=== PATIENT | female | born 1950 | race Caucasian/White ===

== ENCOUNTER 2020-10-18 12:12 | Outpatient (REF) | payer MEDICARE, SELFPAY ==
--- NOTE | ~2020-10-18 | MM_ITS ---
EXAMINATION: MM SCREENING DIGITAL BREAST TOMOSYNTHESIS, BILATERAL CLINICAL INFORMATION: Screening. Asymptomatic. The lifetime risk of breast cancer based on the Tyrer-Cuzick Model is 3%. COMPARISON: Mammography: 10/13/2019, 02/18/2018, 01/26/2017 TECHNIQUE: Digital breast tomosynthesis is performed in both the craniocaudal and mediolateral oblique views along with computer-aided detection (CAD). Synthesized 2D images are generated from the tomosynthesis. Additional left CC view is provided. FINDINGS: The breasts are almost entirely fatty (ACR BI-RADS breast composition Category a). There are no significant masses, abnormal calcifications, or other abnormalities. Background stromal densities are stable. There are scattered bilateral round, predominantly dermal calcifications again seen. No significant changes from prior exams. MM/MM tomosynthesis screening BI IMPRESSION: No mammographic evidence of malignancy. ASSESSMENT: BI-RADS 1: Negative RECOMMENDATION: Routine annual mammography screening. This patient's information was entered into a reminder system with a target due date for their next mammogram.
== END 2020-10-18 12:13 | disposition home or self-care (01) ==
LOC: HO.MAMMO 12:12
PROVIDERS: PCP Internal Medicine; Visit Provider Internal Medicine
DX: Z12.31 Encounter for screening mammogram for malignant neoplasm of breast (principal)
CPT/HCPCS: 77063; 77067

== ENCOUNTER 2021-10-09 07:19 | Outpatient (REF) | payer MEDICARE, SELFPAY ==
[2021-10-09 07:41] LABS: MANUAL DIFF FLAG NO
[2021-10-09 08:05] LABS: Basophils Percent Auto 0.4 % (0-2); Eosinophils Absolute Auto 0.4 X10*3/uL (0.0-0.4); Hematocrit 44.8 % (37.0-47.0); Imm Gran Abs Auto 0.02 X10*3/uL (0.00-0.03); Imm Gran Pct Auto 0.2 % (0.0-0.4); Lymphocytes Absolute Auto 1.6 X10*3/uL (1.2-4.9); Lymphocytes Percent Auto 19.3 % (20-40); Mean Corpuscular HGB Conc 31.3 g/dl (31.0-35.0); Mean Corpuscular Hemoglobin 29.6 pg (27.0-33.0); Mean Corpuscular Volume 94.7 fL (80.0-98.0); Mean Platelet Volume 10.6 fL (9.4-12.3); Monocytes Absolute Auto 0.7 X10*3/uL (0.1-1.2); Monocytes Percent Auto 7.9 % (2-11); Neutrophils Absolute Auto 5.5 x10*3/uL (2.0-8.3); Neutrophils Percent Auto 67.2 % (45-73); Platelet Count 235 X10*3/uL (160-400); Red Blood Count 4.73 X10*6/uL (4.20-5.50); Red Cell Distribution Width 14.4 % (11.0-16.0); White Blood Count 8.2 X10*3/uL (4.8-10.8)
[2021-10-09 08:34] LABS: Alanine Aminotransferase 25 U/L (0-31); Alkaline Phosphatase 60 U/L (39-117); Anion Gap 10 (12-20); Aspartate Amino Transferase 21 U/L (5-31); Bilirubin Total 0.5 mg/dL (0.0-1.0); Blood Urea Nitrogen 19 mg/dL (9-16); Calcium 9.7 mg/dL (8.4-10.2); Carbon Dioxide 33 mmol/L (22-29); Chloride 106 mmol/L (96-108); Cholesterol 183 mg/dL; Estimated Glomerular Filt Rate > 60; Glucose Random 96 mg/dL (60-115); HDL Cholesterol 45 mg/dL; LDL Cholesterol Calculated 119 mg/dl; Sodium 145 mmol/L (135-145); Total Protein 6.7 g/dL (6.5-8.0); Triglycerides 96 mg/dL
[2021-10-09 08:58] LABS: Free T4 (Free Thyroxine) 0.89 ng/dL (0.71-1.85); Thyroid Stimulating Hormone 3.84 uIU/mL (0.32-4.0); Vitamin D 25-OH Total 36.9 ng/mL (>30)
[2021-10-09 08:59] LABS: Folate 18.1 ng/mL (> or = 4.0); Vitamin B12 487 pg/mL (200-900)
== END 2021-10-09 07:20 | disposition home or self-care (01) ==
LOC: HO.LAB 07:19
PROVIDERS: PCP Internal Medicine; Visit Provider Internal Medicine
DX: E78.00 Pure hypercholesterolemia, unspecified (principal)
CPT/HCPCS: 36415; 80053; 80061; 82306; 82607; 82746; 84439; 84443; 85025

== ENCOUNTER 2021-11-04 12:11 | Outpatient (REF) | payer MEDICARE, SELFPAY ==
--- NOTE | ~2021-11-04 | MM_ITS ---
EXAMINATION: MM SCREENING DIGITAL BREAST TOMOSYNTHESIS, BILATERAL CLINICAL INFORMATION: Screening. Asymptomatic. The lifetime risk of breast cancer based on the Tyrer-Cuzick Model is 4%. COMPARISON: Mammography: 10/18/2020, 10/13/2019, 02/18/2018 TECHNIQUE: Digital breast tomosynthesis is performed in both the craniocaudal and mediolateral oblique views along with computer-aided detection (CAD). Synthesized 2D images are generated from the tomosynthesis. FINDINGS: The breasts are almost entirely fatty (ACR BI-RADS breast composition Category a). Background stromal and fibroglandular densities are stable. No developing density. Scattered benign bilateral round and predominantly dermal calcifications are again noted. There is a dermal lesion overlying the upper left breast on MLO view. There are no significant masses, abnormal calcifications, or other abnormalities. No significant changes. MM/MM tomosynthesis screening BI IMPRESSION: No mammographic evidence of malignancy. ASSESSMENT: BI-RADS 2: Benign RECOMMENDATION: Routine annual mammography screening. This patient's information was entered into a reminder system with a target due date for their next mammogram.
== END 2021-11-04 12:12 | disposition home or self-care (01) ==
LOC: HO.MAMMO 12:11
PROVIDERS: Visit Provider Internal Medicine
DX: Z12.31 Encounter for screening mammogram for malignant neoplasm of breast (principal)
CPT/HCPCS: 77063; 77067

== ENCOUNTER 2022-07-17 10:26 | Outpatient (REF) | payer MEDICARE, SELFPAY ==
--- NOTE | ~2022-07-17 | FL_ITS ---
EXAMINATION: XR GI SERIES CLINICAL INFORMATION: Dysphagia. COMPARISON: None TECHNIQUE: Routine upper GI air contrast study was performed in upright and lying position. FINDINGS: Following oral administration of thick barium and effervescent granules there is normal probation of bolus from the oral cavity through the pharynx, esophagus into stomach without any evidence of obstruction, narrowing or stricture. On placing supine and prone there is a small to moderate-sized hiatal hernia with moderate gastroesophageal reflux. There is flocculation of barium in the dependent portion of stomach suggestive of increased acidity. The mucosal pattern of the duodenum and the stomach is normal. Incidental finding of a small diverticulum is seen in the second segment of the duodenum. FLUOROSCOPY TIME: 2.0 minutes DOSE AREA PRODUCT: 23.918 uGy-m2 (microgray-meter squared) FL/FL upper GI series IMPRESSION: Small to moderate-sized hiatal hernia with moderate gastroesophageal reflux. Small diverticulum in second segment of duodenum. Suspect gastric hyperacidity.
== END 2022-07-17 10:27 | disposition home or self-care (01) ==
LOC: HO.XRAY 10:26
PROVIDERS: PCP Internal Medicine; Visit Provider Internal Medicine
DX: R13.10 Dysphagia, unspecified (principal); K21.9 Gastro-esophageal reflux disease without esophagitis
CPT/HCPCS: 74240

== ENCOUNTER 2022-08-20 06:29 | Outpatient (REF) | payer MEDICARE, SELFPAY ==
[2022-08-20 14:22] LABS: MANUAL DIFF FLAG NO
[2022-08-20 14:30] LABS: Basophils Absolute Auto 0.1 X10*3/uL (0.0-0.2); Basophils Percent Auto 0.7 % (0-2); Eosinophils Absolute Auto 0.4 X10*3/uL (0.0-0.4); Eosinophils Percent Auto 5.6 % (0-4); Hematocrit 44.2 % (37.0-47.0); Hemoglobin 13.9 g/dl (12.0-16.0); Imm Gran Abs Auto 0.03 X10*3/uL (0.00-0.03); Imm Gran Pct Auto 0.4 % (0.0-0.4); Lymphocytes Absolute Auto 1.7 X10*3/uL (1.2-4.9); Lymphocytes Percent Auto 22.6 % (20-40); Mean Corpuscular HGB Conc 31.4 g/dl (31.0-35.0); Mean Corpuscular Volume 95.5 fL (80.0-98.0); Mean Platelet Volume 11.4 fL (9.4-12.3); Monocytes Absolute Auto 0.5 X10*3/uL (0.1-1.2); Monocytes Percent Auto 6.7 % (2-11); Neutrophils Absolute Auto 4.7 x10*3/uL (2.0-8.3); Platelet Count 233 X10*3/uL (160-400); Red Blood Count 4.63 X10*6/uL (4.20-5.50); Red Cell Distribution Width 14.6 % (11.0-16.0); White Blood Count 7.3 X10*3/uL (4.8-10.8)
[2022-08-20 14:36] LABS: D Dimer High Sensitivity 161 NG/ML
[2022-08-20 14:40] LABS: Estimated Average Glucose 111 mg/dL; Hemoglobin A1c % 5.5 %
[2022-08-20 15:14] LABS: Folate 13.6 ng/mL (> or = 4.0); Vitamin B12 426 pg/mL (200-900)
[2022-08-20 17:25] LABS: Alanine Aminotransferase 26 U/L (0-31); Albumin Level 4.1 g/dL (3.5-5.0); Alkaline Phosphatase 64 U/L (39-117); Anion Gap 12 (12-20); Aspartate Amino Transferase 20 U/L (5-31); Bilirubin Total 0.5 mg/dL (0.0-1.0); Blood Urea Nitrogen 18 mg/dL (9-16); Calcium 9.5 mg/dL (8.4-10.2); Carbon Dioxide 32 mmol/L (22-29); Chloride 104 mmol/L (96-108); Cholesterol 194 mg/dL; Estimated Glomerular Filt Rate > 60; Free T4 (Free Thyroxine) 0.92 ng/dL (0.71-1.85); Glucose Random 92 mg/dL (60-115); HDL Cholesterol 54 mg/dL; LDL Cholesterol Calculated 121 mg/dl; Potassium 3.7 mmol/L (3.3-5.1); Sodium 144 mmol/L (135-145); Thyroid Stimulating Hormone 5.55 uIU/mL (0.32-4.0); Total Protein 6.6 g/dL (6.5-8.0); Triglycerides 97 mg/dL; Vitamin D 25-OH Total 36.4 ng/mL (>30)
== END 2022-08-20 06:30 | disposition home or self-care (01) ==
LOC: HO.HMGCLDS 06:29
PROVIDERS: PCP Internal Medicine; Visit Provider Internal Medicine
DX: I26.99 Other pulmonary embolism without acute cor pulmonale (principal); K21.9 Gastro-esophageal reflux disease without esophagitis; I10 Essential (primary) hypertension; E66.9 Obesity, unspecified; E78.00 Pure hypercholesterolemia, unspecified
CPT/HCPCS: 36415; 80053; 80061; 82306; 82607; 82746; 83036; 84439; 84443; 85025; 85379

== ENCOUNTER 2022-10-23 14:53 | Outpatient (REF) | payer MEDICARE, SELFPAY ==
--- NOTE | 2022-10-23 16:06 | PFT_ITS ---
INDICATION: Shortness of breath. SPIROMETRY: FEV1 to FVC of 81% with an FEV1 of 2.1 L, which is 100% predicted and an FVC of 2.6 L, which is 92% predicted. No significant response to bronchodilators noted. Maximum voluntary ventilation is 104% predicted. LUNG VOLUMES: Total lung capacity 90% predicted. DIFFUSION CAPACITY: DLCO of 81% predicted. COMPARISONS: None. INTERPRETATION: No obstructive nor restrictive ventilatory defect identified. No significant response to bronchodilators noted. Normal maximum voluntary ventilation. Lung volumes are within normal limits. The patient does have low normal diffusion capacity. No clinical explanation for the patient's dyspnea. Clinical correlation warranted. MD ASHLEY Lopez/MODIsaac / [id number]
== END 2022-10-23 14:54 | disposition home or self-care (01) ==
LOC: HO.RESP 14:53
PROVIDERS: PCP Internal Medicine; Visit Provider Internal Medicine
DX: R06.02 Shortness of breath (principal)
CPT/HCPCS: 94060; 94727; 94729

== ENCOUNTER 2022-10-24 09:56 | Outpatient (REF) | payer MEDICARE, SELFPAY ==
--- NOTE | ~2022-10-24 | XR_ITS ---
EXAMINATION: XR CHEST CLINICAL INFORMATION: Shortness of breath. COMPARISON: 02/10/2018 chest radiographs. TECHNIQUE: 2 views of the chest were obtained. FINDINGS: Minimal linear markings are seen at the left lung base. The lungs otherwise clear. The heart and mediastinal structures are unremarkable. XR/XR chest 2V IMPRESSION: Minimal left basilar linear atelectasis versus scarring. No acute cardiopulmonary process. This represents interval improvement from the 2018 study.
[2022-10-24 12:47] LABS: Free T4 (Free Thyroxine) 0.98 ng/dL (0.71-1.85); Thyroid Stimulating Hormone 2.86 uIU/mL (0.32-4.0)
== END 2022-10-24 09:57 | disposition home or self-care (01) ==
LOC: HO.HMGCX 09:56
PROVIDERS: PCP Internal Medicine; Visit Provider Internal Medicine
DX: R06.02 Shortness of breath (principal); R79.89 Other specified abnormal findings of blood chemistry
CPT/HCPCS: 36415; 71046; 84439; 84443

== ENCOUNTER 2022-11-10 08:42 | Outpatient (REF) | payer MEDICARE, SELFPAY ==
--- NOTE | ~2022-11-10 | MM_ITS ---
EXAMINATION: MM SCREENING DIGITAL BREAST TOMOSYNTHESIS, BILATERAL CLINICAL INFORMATION: Screening. Asymptomatic. The lifetime risk of breast cancer based on the Tyrer-Cuzick Model is 3%. COMPARISON: Mammography: 11/04/2021, 10/18/2020, 10/13/2019 TECHNIQUE: Digital breast tomosynthesis is performed in both the craniocaudal and mediolateral oblique views along with computer-aided detection (CAD). Synthesized 2D images are generated from the tomosynthesis. FINDINGS: The breasts are almost entirely fatty (ACR BI-RADS breast composition Category a). There are no significant masses, abnormal calcifications, or other abnormalities. Background stromal markings are similar to prior studies. No developing density or architectural abnormality. The axilla are unremarkable. There is a dermal lesion again seen overlying the left axilla on MLO view. MM/MM tomosynthesis screening BI IMPRESSION: No mammographic evidence of malignancy. ASSESSMENT: BI-RADS 2: Benign RECOMMENDATION: Routine annual mammography screening. This patient's information was entered into a reminder system with a target due date for their next mammogram.
== END 2022-11-10 08:43 | disposition home or self-care (01) ==
LOC: HO.MAMMO 08:42
PROVIDERS: PCP Internal Medicine; Visit Provider Internal Medicine
DX: Z12.31 Encounter for screening mammogram for malignant neoplasm of breast (principal)
CPT/HCPCS: 77063; 77067

== ENCOUNTER 2023-04-07 07:03 | Outpatient (REF) | payer MEDICARE, SELFPAY ==
[2023-04-07 11:28] LABS: MANUAL DIFF FLAG NO
[2023-04-07 11:43] LABS: Basophils Percent Auto 0.5 % (0-2); Eosinophils Absolute Auto 0.4 X10*3/uL (0.0-0.4); Eosinophils Percent Auto 5.4 % (0-4); Hematocrit 44.5 % (37.0-47.0); Hemoglobin 13.8 g/dl (12.0-16.0); Imm Gran Abs Auto 0.03 X10*3/uL (0.00-0.03); Imm Gran Pct Auto 0.4 % (0.0-0.4); Lymphocytes Absolute Auto 1.7 X10*3/uL (1.2-4.9); Mean Corpuscular Hemoglobin 29.5 pg (27.0-33.0); Mean Corpuscular Volume 95.1 fL (80.0-98.0); Mean Platelet Volume 11.8 fL (9.4-12.3); Monocytes Absolute Auto 0.5 X10*3/uL (0.1-1.2); Monocytes Percent Auto 6.3 % (2-11); Neutrophils Absolute Auto 4.9 x10*3/uL (2.0-8.3); Neutrophils Percent Auto 65.4 % (45-73); Platelet Count 239 X10*3/uL (160-400); Red Blood Count 4.68 X10*6/uL (4.20-5.50); Red Cell Distribution Width 14.6 % (11.0-16.0); White Blood Count 7.6 X10*3/uL (4.8-10.8)
[2023-04-07 11:47] LABS: Estimated Average Glucose 111 mg/dL; Hemoglobin A1c % 5.5 %
[2023-04-07 12:24] LABS: Vitamin B12 476 pg/mL (200-900)
[2023-04-07 12:29] LABS: Alanine Aminotransferase 37 U/L (0-31); Albumin Level 3.9 g/dL (3.5-5.0); Alkaline Phosphatase 61 U/L (39-117); Anion Gap 14 (12-20); Aspartate Amino Transferase 30 U/L (5-31); Bilirubin Total 0.3 mg/dL (0.0-1.0); Blood Urea Nitrogen 19 mg/dL (9-16); Calcium 9.7 mg/dL (8.4-10.2); Carbon Dioxide 28 mmol/L (22-29); Chloride 105 mmol/L (96-108); Cholesterol 175 mg/dL; Estimated Glomerular Filt Rate > 60; Glucose Random 93 mg/dL (60-115); HDL Cholesterol 46 mg/dL; LDL Cholesterol Calculated 110 mg/dl; Potassium 3.9 mmol/L (3.3-5.1); Sodium 143 mmol/L (135-145); Triglycerides 99 mg/dL
[2023-04-07 12:32] LABS: Free T4 (Free Thyroxine) 0.83 ng/dL (0.71-1.85); Thyroid Stimulating Hormone 4.76 uIU/mL (0.32-4.0)
== END 2023-04-07 07:04 | disposition home or self-care (01) ==
LOC: HO.HMGCLDS 07:03
PROVIDERS: PCP Internal Medicine; Visit Provider Internal Medicine
DX: E78.00 Pure hypercholesterolemia, unspecified (principal); R79.89 Other specified abnormal findings of blood chemistry
CPT/HCPCS: 36415; 80053; 80061; 82607; 82746; 83036; 84439; 84443; 85025

== ENCOUNTER 2023-07-09 06:51 | Outpatient (REF) | payer MEDICARE, SELFPAY ==
[2023-07-09 12:15] LABS: Free T4 (Free Thyroxine) 0.88 ng/dL (0.71-1.85); Thyroid Stimulating Hormone 5.08 uIU/mL (0.32-4.0)
== END 2023-07-09 06:52 | disposition home or self-care (01) ==
LOC: HO.HMGCLDS 06:51
PROVIDERS: PCP Internal Medicine; Visit Provider Internal Medicine
DX: R94.6 Abnormal results of thyroid function studies (principal)
CPT/HCPCS: 36415; 84439; 84443

== ENCOUNTER 2023-07-16 09:26 | Outpatient (AMB) | payer MEDICARE, SELFPAY ==
[2023-07-16 09:34] VITALS: BP 128/70; PULSE 60; RESP 16; O2SAT 98; BMI 35.2
--- NOTE | 2023-07-16 09:34 | MHC.PC.OV ---
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 Accompanied by: Self / Same As Patient Allergies lisinopril [LISINOPRIL] Allergy (Severe, Verified 07/16/23 10:01) ANGIOEDEMA latex [LATEX] Allergy (Mild, Verified 07/16/23 10:01) RASH Tobacco use date assessed: 09/15/22 Fall risk assessment: 1 Fall in past year Last assessed Fall Risk: 07/16/23 Dental Screening Dental Screen Date: 07/16/23 Did you have a dental visit in the last 12 months?: Yes Did you have a dental problem in the last 6 months where you did not have access to dental care?: No Was dental information given to patient?: Patient has dentist HPI Pulmonary embolism, THERESA HPI Details 72-year-old obese female with a history of pulmonary embolism on anticoagulation hypertension obstructive sleep apnea GERD hypercholesterolemia last seen in February 2023. Patient is here for follow-up. Colonoscopy is up-to-date mammograms up-to-date bone density is due. BP machine brouhgt in and is good 108/68 and 114/70 BP at home has been good But below 110/70. am nasal congestion, last week to start [facility] Medical History (Updated 07/16/23 @ 10:38 by Danika Pino MD) Pubic bone fracture Hypertension Anxiety Pancreatic lesion Obstructive sleep apnea Peripheral vascular disease GERD (gastroesophageal reflux disease) Obesity (BMI 30-39.9) Glaucoma Osteoarthritis Thyroid nodule Hypercholesterolemia Recurrent pulmonary embolism Surgical History History of left knee surgery History of eye surgery History of tonsillectomy History of cataract extraction Family History Father Diabetes CHF (congestive heart failure) Hypertension CVD (cardiovascular disease) Mother Dementia Stroke Hypertension Son In good health Other Mental health disorder Social History Housing: House Alcohol intake: never Patient Tobacco Use Status: Never used Tobacco e-Cigarette/Vaping Use: Never Used Second Hand Smoke Exposure: No service: No Current occupational status: retired Cognitive needs: No Hearing needs: No Vision needs: Yes Questionnaire PHQ-9 Over the last 2 weeks, how often have you been bothered by any of the following problems? 1. Little interest or pleasure in doing things: not at all 2. Feeling down, depressed, or hopeless: not at all 3. Trouble falling or staying asleep, or sleeping too much: not at all 4. Feeling tired or having little energy: not at all 5. Poor appetite or overeating: not at all 6. Feeling bad about yourself - or that you are a failure or have let yourself or your family down: not at all 7. Trouble concentrating on things, such as reading the newspaper or watching television: not at all 8. Moving or speaking so slowly that other people could have noticed. Or the opposite - being so fidgety or restless that you have been moving around a lot more than usual: not at all 9. Thoughts that you would be better off or of hurting yourself in some way: not at all Total score: 0 Depression Screening Interpretation: Negative Depression Screening Done: Yes Source: Developed by Drs. Raul Estes, Va Stone, Sunny Mosqueda and colleagues, with an educational diana from [employer]. Thrive Questionnaire Date Thrive assessed: 09/15/22 AUDIT C Alcohol Use Questionnaire (AUDIT-C) 1. How often do you have a drink containing alcohol?: Never 3. How often do you have six or more drinks on one occasion?: Never Total Score: 0 ARNIE-7 AMB Questionnaire ARNIE-7 Date ARNIE - 7 assessed: 09/15/22 Source: Developed by Drs. Raul Estes, Va Stone, Sunny Mosqueda and colleagues, with an educational diana from [employer]. Physical exam (Primary Care) Vital Signs: Last Vital Signs Pulse 60 07/16/23 09:34 Resp 16 07/16/23 09:34 BP 128/70 07/16/23 09:34 Pulse Ox 98 07/16/23 09:34 Oxygen Delivery Method Room Air 07/16/23 09:34 BMI result Body Mass Index 35.2 Tobacco/Smoking Status: Tobacco use Status Tobacco use date assessed 09/15/22 07/16/23 09:37 Patient Tobacco Use Status Never used Tobacco 07/16/23 09:37 e-Cigarette/Vaping Use Never Used 07/16/23 09:37 PHQ-9: PHQ-9 Score PHQ-9: Total score 0 07/16/23 10:06 Depression Screening Interpretation: Negative Thrive Assessment: Date of Thrive Assessment Date Thrive assessed 09/15/22 07/16/23 09:37 Const General: alert; No acute distress Eyes Conjunctivae: conjunctivae normal Resp Auscultation: clear to auscultation bilaterally Cardio Rate: regular rate Rhythm: regular rhythm GI Inspection: Yes normal to inspection Extrem General: Yes normal to inspection and No edema Assessment and Plan Assessment & Plan (1) TSH elevation: Code(s): R79.89 - Other specified abnormal findings of blood chemistry Plan: Continue to monitor (2) Recurrent pulmonary embolism: Comment: 04/24/2015, 6 months September 2015 Code(s): I26.99 - Other pulmonary embolism without acute cor pulmonale Plan: Continue with anticoagulation with Eliquis twice a year renal function test April 2023 last blood work (3) Hypertension: Code(s): I10 - Essential (primary) hypertension Plan: Continue with blood pressure medication. Decrease salt intake and exercise patient on hydrochlorothiazide amlodipine. BP has been low AT HOME and so stop Amlodipine and continue to monitor BP (4) Obstructive sleep apnea: Comment: CPAP Code(s): G47.33 - Obstructive sleep apnea (adult) (pediatric) Plan: Continue with CPAP more than 4 hours a night and benefits from this (5) GERD (gastroesophageal reflux disease): Comment: Upper GI series Julymall to moderate-sized hiatal hernia with moderate gastroesophageal reflux. Small diverticulum in second segment of duodenum. Suspect gastric hyperacidity. Code(s): K21.9 - Gastro-esophageal reflux disease without esophagitis Plan: Avoid the foods that causes that usually spicy foods, tomato products, juices, coffee, soda and foods that your sensitive to. After eating do not lie down, allow 3-4 hours before in lie down. And keep the head of bed above 30 degrees to avoid the acid from going up. (6) Obesity (BMI 30-39.9): Code(s): E66.9 - Obesity, unspecified Plan: Diet and exercise (7) Hypercholesterolemia: Code(s): E78.00 - Pure hypercholesterolemia, unspecified Plan: Avoid fried foods, chicken skin, eggs, butter margarine, pastries and meat. Be it pork or beef they have a lot of cholesterol LDL goal of less than 130 and triglyceride of less than 150. Is on diet control. (8) Osteopenia: Comment: 2019 Code(s): M85.80 - Other specified disorders of bone density and structure, unspecified site (9) Nasal congestion: Code(s): R09.81 - Nasal congestion Plan: trial of allergy med Orders: Orders Comprehensive Met. Panel 3 Months Z00.00 - Encounter for general adult medical examination without abnormal findings XR DEXA axial skeleton Today M81.0 - Age-related osteoporosis without current pathological fracture, M85.80 - Other specified disorders of bone density and structure, unspecified site Medications: Discontinued amlodipine Discontinued Reason: Doctor's Order 5 mg PO DAILY 90 days 90 tabs 1RF I10 - Essential (primary) hypertension Coding Level of Care Code Est Pt Level 4 (01747) Diagnoses TSH elevation R79.89 Recurrent pulmonary embolism I26.99 Hypertension I10 Obstructive sleep apnea G47.33 GERD (gastroesophageal reflux disease) K21.9 Obesity (BMI 30-39.9) E66.9 Hypercholesterolemia E78.00 Osteopenia M85.80 Nasal congestion R09.81
== END 2023-07-16 10:45 | disposition home or self-care (01) ==
PROVIDERS: PCP Internal Medicine; Visit Provider Internal Medicine
DX: I10 Essential (primary) hypertension (principal); R79.89 Other specified abnormal findings of blood chemistry; I26.99 Other pulmonary embolism without acute cor pulmonale; G47.33 Obstructive sleep apnea (adult) (pediatric); K21.9 Gastro-esophageal reflux disease without esophagitis; E66.9 Obesity, unspecified; Z68.35 Body mass index [BMI] 35.0-35.9, adult; E78.00 Pure hypercholesterolemia, unspecified; M85.80 Other specified disorders of bone density and structure, unspecified site; R09.81 Nasal congestion
CPT/HCPCS: 99214

== ENCOUNTER 2023-08-06 13:17 | Outpatient (REF) | payer MEDICARE, SELFPAY ==
--- NOTE | ~2023-08-06 | MM_ITS ---
EXAMINATION: BONE DENSITOMETRY CLINICAL INDICATION: Age-related osteoporosis without current pathological fracture. COMPARISON: Previous BD dated 05/03/2020 and baseline BD dated 06/15/2008. TECHNIQUE: Using a [employer] DXA System (software version: 13.1) manufactured by [employer], dual-energy x-ray absorptiometry was performed of the lumbar spine and left hip. The images are of good technical quality. Summary results are attached. FINDINGS: LEFT FEMUR, NECK: Current: BMD 0.644 g/cm2, Z-score -1.5, T-score -2.8, osteoporosis. Prior: BMD 0.808 g/cm2. Baseline: BMD 0.793 g/cm2. LEFT FEMUR, TOTAL: Current: BMD 0.689 g/cm2, Z-score -1.4, T-score -2.5, osteoporosis, 22.8% decrease from previous, 22.5% increase from baseline (<5% change is not significant). Prior: BMD 0.893 g/cm2. Baseline: BMD 0.889 g/cm2. AP SPINE L1-L4: Current: BMD 1.152 g/cm2, Z-score 0.8, T-score -0.2, normal, 11.8% increase from previous, 19.5% increase from baseline (<5% change is not significant). Prior: BMD 1.030 g/cm2. Baseline: BMD 0.964 g/cm2. IDENTIFIED RISK FACTORS: Height loss, thiazide, menopause. HISTORY OF FRACTURE: None listed. MEDICATIONS: Calcium supplements or multivitamin, vitamin D. MM/XR DEXA axial skeleton IMPRESSION: 1. DIAGNOSIS: Osteoporosis based on the lowest T-score value of -2.8 in the femoral neck applying World Health Organization criteria. 2. 10-YEAR FRACTURE RISK PREDICTION, FRAX: According to the guidelines, FRAX calculation should only be performed on patients in the osteopenia bone density category. Therefore, FRAX was not performed on this patient. 3. Treatment Recommendations: NOF guidelines recommend consideration for treatment in postmenopausal women and men age 50 and older presenting with the following: -A hip or vertebral (clinical or morphometric) fracture. -T-score less than or equal to -2.5 at the femoral neck or spine after appropriate evaluation to exclude secondary causes. -Low bone mass at the hip or spine and a 10-year fracture probability by FRAX of greater than or equal to 3% for hip fracture or greater than or equal to 20% for major osteoporotic fracture based on the [place] adapted WHO algorithm. 4. Other Recommendations: All treatment decisions require clinical judgment and consideration of individual patient factors, including patient preferences, comorbidities, previous drug use, risk factors not captured in the FRAX model (e.g. frailty, falls, vitamin D deficiency, increased bone turnover, interval significant decline in bone density) and possible under or overestimation of fracture risk by FRAX. Additional medical evaluation for secondary cause of low bone mineral density may be appropriate. FUTURE SCAN RECOMMENDATION: People with diagnosed cases of osteoporosis or at high risk for fracture should have regular bone mineral density tests. For patients eligible for Medicare, routine testing is allowed once every 2 years. The testing frequency can be increased to one year for patients who have rapidly progressing disease, those who are receiving or discontinuing medical therapy to restore bone mass, or have additional risk factors.
== END 2023-08-06 13:18 | disposition home or self-care (01) ==
LOC: HO.MAMMO 13:17
PROVIDERS: Visit Provider Internal Medicine
DX: Z13.820 Encounter for screening for osteoporosis (principal); M85.80 Other specified disorders of bone density and structure, unspecified site; M81.0 Age-related osteoporosis without current pathological fracture; Z78.0 Asymptomatic menopausal state
CPT/HCPCS: 77080

== ENCOUNTER 2023-09-22 08:32 | Outpatient (AMB) | payer MEDICARE, SELFPAY ==
[2023-09-22 08:46] VITALS: BP 134/88; PULSE 64; O2SAT 96; BMI 34.9
--- NOTE | 2023-09-22 08:46 | A.OFFPC_ITS ---
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 Last seen in July 2023. 1 month ago itch knee leg ankle bilateral and then now arms. 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 diarrhea, panicked and became anxious-checked BP discussed about anxiety and BP [facility] Medical History (Updated 09/22/23 @ 09:28 by Danika Pino MD) Pubic bone fracture Hypertension Anxiety Pancreatic lesion Obstructive sleep apnea Peripheral vascular disease GERD (gastroesophageal reflux disease) Obesity (BMI 30-39.9) Glaucoma Osteoarthritis Thyroid nodule Hypercholesterolemia Recurrent pulmonary embolism Surgical History History of left knee surgery History of eye surgery History of tonsillectomy History of cataract extraction Family History Father Diabetes CHF (congestive heart failure) Hypertension CVD (cardiovascular disease) Mother Dementia Stroke Hypertension Son In good health Other Mental health disorder Social History Housing: House Alcohol intake: never Patient Tobacco Use Status: Never used Tobacco e-Cigarette/Vaping Use: Never Used Second Hand Smoke Exposure: No service: No Current occupational status: retired Cognitive needs: No Hearing needs: No Vision needs: Yes Questionnaire Thrive Questionnaire Date Thrive assessed: 09/22/23 I am a: Patient What is your living situation today?: I have a steady place to live Within the past 12 months, did the food you bought not last and you didn't have the money to get more?: Never true Within the past 12 months, did you worry whether your food would run out before you got money to buy more?: Never true Do you have trouble paying for medicines?: No Do you have trouble getting transportation to medical appointments?: No Do you have trouble paying your heating and electricity bill?: No Do you have trouble taking care of your child, family member or friend?: No Do you have trouble with day-to-day activities such as bathing, preparing meals, shopping, managing finances, etc.?: No Are you currently unemployed and looking for a job?: No Are you interested in more education?: No AUDIT C Alcohol Use Questionnaire (AUDIT-C) 1. How often do you have a drink containing alcohol?: Never 3. How often do you have six or more drinks on one occasion?: Never Total Score: 0 ARNIE-7 AMB Questionnaire ARNIE-7 Date ARNIE - 7 assessed: 09/22/23 Source: Developed by Drs. Raul Estes, Va Stone, Sunny Mosqueda and colleagues, with an educational diana from [employer]. Physical exam (Primary Care) Vital Signs: Last Vital Signs Pulse 64 09/22/23 08:46 BP 134/88 09/22/23 08:46 Pulse Ox 96 09/22/23 08:46 Oxygen Delivery Method Room Air 09/22/23 08:46 BMI result Body Mass Index 34.9 Tobacco/Smoking Status: Tobacco use Status Tobacco use date assessed 09/22/23 09/22/23 08:47 Patient Tobacco Use Status Never used Tobacco 09/22/23 08:47 e-Cigarette/Vaping Use Never Used 09/22/23 08:47 Thrive Assessment: Date of Thrive Assessment Date Thrive assessed 09/22/23 09/22/23 08:47 Assessment and Plan Assessment & Plan (1) Allergic dermatitis: Code(s): L23.9 - Allergic contact dermatitis, unspecified cause Plan: advised to use moisturizing hydration on the skin. (2) Hypertension: Code(s): I10 - Essential (primary) hypertension (3) Hypercholesterolemia: Code(s): E78.00 - Pure hypercholesterolemia, unspecified (4) Anxiety, generalized: Code(s): F41.1 - Generalized anxiety disorder Plan: discussion about anxiety and treatment (5) Obstructive sleep apnea: Comment: CPAP Code(s): G47.33 - Obstructive sleep apnea (adult) (pediatric) Plan: continue with CPAP > 4 hours at night and benefits from this. Orders: Orders Complete Blood Count Auto Diff Today L23.9 - Allergic contact dermatitis, unspecified cause Referrals Dermatology Referral L23.9 - Allergic contact dermatitis, unspecified cause Coding Level of Care Code Est Pt Level 4 (66918) Diagnoses Allergic dermatitis L23.9 Hypertension I10 Hypercholesterolemia E78.00 Anxiety, generalized F41.1 Obstructive sleep apnea G47.33
== END 2023-09-22 09:37 | disposition home or self-care (01) ==
PROVIDERS: PCP Internal Medicine; Visit Provider Internal Medicine
DX: L23.9 Allergic contact dermatitis, unspecified cause (principal); I10 Essential (primary) hypertension; E78.00 Pure hypercholesterolemia, unspecified; F41.1 Generalized anxiety disorder; G47.33 Obstructive sleep apnea (adult) (pediatric)
CPT/HCPCS: 99214

== ENCOUNTER 2023-10-13 06:55 | Outpatient (REF) | payer MEDICARE, SELFPAY ==
[2023-10-13 11:12] LABS: MANUAL DIFF FLAG NO
[2023-10-13 11:35] LABS: Basophils Absolute Auto 0.1 X10*3/uL (0.0-0.2); Basophils Percent Auto 0.7 % (0-2); Eosinophils Absolute Auto 0.5 X10*3/uL (0.0-0.4); Eosinophils Percent Auto 6.1 % (0-4); Hematocrit 44.2 % (37.0-47.0); Hemoglobin 14.1 g/dl (12.0-16.0); Imm Gran Abs Auto 0.04 X10*3/uL (0.00-0.03); Imm Gran Pct Auto 0.5 % (0.0-0.4); Lymphocytes Absolute Auto 1.9 X10*3/uL (1.2-4.9); Lymphocytes Percent Auto 22.8 % (20-40); Mean Corpuscular HGB Conc 31.9 g/dl (31.0-35.0); Mean Corpuscular Hemoglobin 29.7 pg (27.0-33.0); Mean Corpuscular Volume 93.1 fL (80.0-98.0); Mean Platelet Volume 11.1 fL (9.4-12.3); Monocytes Absolute Auto 0.6 X10*3/uL (0.1-1.2); Monocytes Percent Auto 7.5 % (2-11); Neutrophils Absolute Auto 5.1 x10*3/uL (2.0-8.3); Neutrophils Percent Auto 62.4 % (45-73); Platelet Count 262 X10*3/uL (160-400); Red Blood Count 4.75 X10*6/uL (4.20-5.50); Red Cell Distribution Width 14.4 % (11.0-16.0); White Blood Count 8.2 X10*3/uL (4.8-10.8)
[2023-10-13 12:09] LABS: Alanine Aminotransferase 20 U/L (0-31); Albumin Level 3.9 g/dL (3.5-5.0); Alkaline Phosphatase 61 U/L (39-117); Anion Gap 14 (12-20); Aspartate Amino Transferase 21 U/L (5-31); Bilirubin Total 0.4 mg/dL (0.0-1.0); Blood Urea Nitrogen 17 mg/dL (9-16); Calcium 9.6 mg/dL (8.4-10.2); Carbon Dioxide 29 mmol/L (22-29); Chloride 103 mmol/L (96-108); Estimated Glomerular Filt Rate > 60; Free T4 (Free Thyroxine) 0.87 ng/dL (0.71-1.85); Glucose Random 86 mg/dL (60-115); Potassium 3.6 mmol/L (3.3-5.1); Sodium 142 mmol/L (135-145); Thyroid Stimulating Hormone 4.08 uIU/mL (0.32-4.0); Total Protein 7.1 g/dL (6.5-8.0)
== END 2023-10-13 06:56 | disposition home or self-care (01) ==
LOC: HO.HMGCLDS 06:55
PROVIDERS: PCP Internal Medicine; Visit Provider Internal Medicine
DX: Z00.00 Encounter for general adult medical examination without abnormal findings (principal); R79.89 Other specified abnormal findings of blood chemistry; L23.9 Allergic contact dermatitis, unspecified cause
CPT/HCPCS: 36415; 80053; 84439; 84443; 85025

== ENCOUNTER 2023-10-23 09:52 | Outpatient (AMB) | payer MEDICARE, SELFPAY ==
[2023-10-23 10:03] VITALS: BP 140/70; PULSE 62; O2SAT 95; BMI 35.1
--- NOTE | 2023-10-23 10:03 | MHC.PC.OV ---
Vital Signs 10/23/23 10:03 Height 5 ft 3 in Weight 198 lb 0.6 oz BMI 35.1 BP 140/70 H Blood Pressure Location Lt brachial Position Sitting Pulse 62 Pulse Source Pulse Oximeter Pulse Oximetry (%) 95 Oxygen Delivery Method Room Air Intake Visit Reasons: Annual exam Intake Note: Patient is here today for a physical. Podiatric Technician Required: No Allergies lisinopril [LISINOPRIL] Allergy (Severe, Verified 10/23/23 10:03) ANGIOEDEMA latex [LATEX] Allergy (Mild, Verified 10/23/23 10:03) RASH Medication List - Last Reconciled 10/23/23 by Danika Pino MD apixaban (Eliquis) 5 mg PO BID 90 days cholecalciferol (vitamin D3) 25 mcg PO DAILY CPAP (CPAP Machine/Device) As directed hydrochlorothiazide 25 mg PO QAM 90 days Lactobacillus rhamnosus GG (Culturelle) 1 cap PO DAILY omeprazole 20 mg PO DAILY 90 days tafluprost (PF) 0.0015% (Zioptan (PF)) 1 drp ophthalmic (eye) BEDTIME timolol 0.5% 1 drp ophthalmic (eye) BID Tobacco use date assessed: 10/23/23 Fall risk assessment: No Falls in past year Last assessed Fall Risk: 10/23/23 Dental Screening Dental Screen Date: 10/23/23 Did you have a dental visit in the last 12 months?: Yes Did you have a dental problem in the last 6 months where you did not have access to dental care?: No Was dental information given to patient?: Patient has dentist HPI Annual exam HPI Details 73-year-old obese female with hypertension hypercholesterolemia generalized anxiety disorder obstructive sleep apnea recurrent pulmonary embolism last seen September 2023 but patient is here for physical exam. Colonoscopy is due this year mammogram is up-to-date bone density is up-to-date. BP at home is good [facility] Medical History (Updated 10/23/23 @ 10:59 by Danika Pino MD) Pubic bone fracture Hypertension Anxiety Pancreatic lesion Obstructive sleep apnea Peripheral vascular disease GERD (gastroesophageal reflux disease) Obesity (BMI 30-39.9) Glaucoma Osteoarthritis Thyroid nodule Hypercholesterolemia Recurrent pulmonary embolism Surgical History History of left knee surgery History of eye surgery History of tonsillectomy History of cataract extraction Family History Father Diabetes CHF (congestive heart failure) Hypertension CVD (cardiovascular disease) Mother Dementia Stroke Hypertension Son In good health Other Mental health disorder Social History Housing: House Alcohol intake: never Patient Tobacco Use Status: Never used Tobacco e-Cigarette/Vaping Use: Never Used Second Hand Smoke Exposure: No service: No Current occupational status: retired Cognitive needs: No Hearing needs: No Vision needs: Yes Questionnaire PHQ-9 Over the last 2 weeks, how often have you been bothered by any of the following problems? 1. Little interest or pleasure in doing things: not at all 2. Feeling down, depressed, or hopeless: not at all 3. Trouble falling or staying asleep, or sleeping too much: not at all 4. Feeling tired or having little energy: not at all 5. Poor appetite or overeating: not at all 6. Feeling bad about yourself - or that you are a failure or have let yourself or your family down: not at all 7. Trouble concentrating on things, such as reading the newspaper or watching television: not at all 8. Moving or speaking so slowly that other people could have noticed. Or the opposite - being so fidgety or restless that you have been moving around a lot more than usual: not at all 9. Thoughts that you would be better off or of hurting yourself in some way: not at all Total score: 0 Depression Screening Interpretation: Negative Depression Screening Done: Yes Source: Developed by Drs. Raul Estes, Va Stone, Sunny Mosqueda and colleagues, with an educational diana from [employer]. Thrive Questionnaire Date Thrive assessed: 09/22/23 I am a: Patient What is your living situation today?: I have a steady place to live Within the past 12 months, did the food you bought not last and you didn't have the money to get more?: Never true Within the past 12 months, did you worry whether your food would run out before you got money to buy more?: Never true Do you have trouble paying for medicines?: No Do you have trouble getting transportation to medical appointments?: No Do you have trouble paying your heating and electricity bill?: No Do you have trouble taking care of your child, family member or friend?: No Do you have trouble with day-to-day activities such as bathing, preparing meals, shopping, managing finances, etc.?: No Are you currently unemployed and looking for a job?: No Are you interested in more education?: No Please select the resources that you would like help with: None THRIVE Score: 0 AUDIT C Alcohol Use Questionnaire (AUDIT-C) 1. How often do you have a drink containing alcohol?: Never 3. How often do you have six or more drinks on one occasion?: Never Total Score: 0 ARNIE-7 AMB Questionnaire ARNIE-7 Date ARNIE - 7 assessed: 09/22/23 Feeling nervous, anxious, or on edge: 0 = Not at all Not being able to stop or control worryin = Not at all Worrying too much about different things: 0 = Not at all Trouble relaxin = Not at all Being so restless that it is hard to sit still: 0 = Not at all Becoming easily annoyed or irritable: 0 = Not at all Feeling afraid as if something awful might happen: 0 = Not at all Total ARNIE-7 score (0-4 normal; 5-9 mild; 10-14 moderate; 15-21 severe): 0 Source: Developed by Drs. Raul Estes, Va Stone, Sunny Mosqueda and colleagues, with an educational diana from [employer]. Review of Systems Const Denies poor appetite and Denies weakness Eyes Denies no additional complaints ENT Reports Normal hearing present, Denies dizziness, Denies nasal congestion, Denies tinnitus and Denies sore throat Card Denies chest pain, Denies syncope, Denies rapid heart rate and Denies dyspnea Resp Denies cough and Denies dyspnea GI Denies change in stool character, Reports constipation, Denies diarrhea, Denies nausea and Denies vomiting Denies urinary frequency, Denies difficulty voiding and Denies dysuria Neuro Reports Normal hearing present, Denies confusion, Denies dizziness, Denies syncope and Denies weakness Psych Denies confusion Physical exam (Primary Care) Vital Signs: Last Vital Signs Pulse 62 10/23/23 10:03 BP 140/70 H 10/23/23 10:03 Pulse Ox 95 10/23/23 10:03 Oxygen Delivery Method Room Air 10/23/23 10:03 BMI result Body Mass Index 35.1 Tobacco/Smoking Status: Tobacco use Status Tobacco use date assessed 10/23/23 10/23/23 10:04 Patient Tobacco Use Status Never used Tobacco 10/23/23 10:04 e-Cigarette/Vaping Use Never Used 10/23/23 10:04 PHQ-9: PHQ-9 Score PHQ-9: Total score 0 10/23/23 10:20 Depression Screening Interpretation: Negative Thrive Assessment: Date of Thrive Assessment Date Thrive assessed 09/22/23 10/23/23 10:04 Const General: No confusion Orientation/consciousness: No confusion HENMT Head: Yes normocephalic Ears: external ears normal and TM's normal bilaterally Face and sinus: Yes normal facial exam Mouth: moist mucous membranes Throat: Yes tonsils normal Eyes Conjunctivae: conjunctivae normal Pupils: Equal, round and reactive pupils present and Pupil accommodation reflex normal Direct Ophthalmoscopy: normal light reflex Neck Neck: No lymphadenopathy Thyroid: Thyroid normal Chest Chest palpation & inspection: normal inspection of the chest Resp Effort & Inspection: normal respiratory effort and no audible wheezes Auscultation: clear to auscultation bilaterally, no crackles, no wheezes and lung sounds not diminished Cardio Rate: regular rate Rhythm: regular rhythm Peripheral pulses: radial pulses present and dorsalis pedis present GI Palpation (GI): no masses Auscultation: normal bowel sounds and normoactive bowel sounds Rectal Exam - Female: deferred Skin General skin exam: no rashes or lesions noted Rashes: no rashes Neuro General: No confusion Cranial nerves: Yes Equal, round and reactive pupils present and Yes Normal hearing present Cognition (Neuro): normal cognition Gait exam (Neuro): Normal gait present Motor exam (neuro): 5/5 motor strength present throughout Deep tendon reflexes (DTR's): Right brachioradialis reflex intensity grade: 2+, Left brachioradialis reflex intensity grade: 2+, Right patellar reflex intensity grade: 2+ and Left patellar reflex intensity grade: 2+ Extrem General: No edema Assessment and Plan Assessment & Plan (1) Annual physical exam: Code(s): Z00.00 - Encounter for general adult medical examination without abnormal findings (2) Hypercholesterolemia: Code(s): E78.00 - Pure hypercholesterolemia, unspecified Plan: Avoid fried foods, chicken skin, eggs, butter margarine, pastries and meat. Be it pork or beef they have a lot of cholesterol LDL goal of less than 130 and triglyceride of less than 150 (3) Obesity (BMI 30-39.9): Code(s): E66.9 - Obesity, unspecified Plan: Diet and exercise (4) GERD (gastroesophageal reflux disease): Comment: Upper GI series Julymall to moderate-sized hiatal hernia with moderate gastroesophageal reflux. Small diverticulum in second segment of duodenum. Suspect gastric hyperacidity. Code(s): K21.9 - Gastro-esophageal reflux disease without esophagitis Plan: Avoid the foods that causes that usually spicy foods, tomato products, juices, coffee, soda and foods that your sensitive to. After eating do not lie down, allow 3-4 hours before in lie down. And keep the head of bed above 30 degrees to avoid the acid from going up. (5) Obstructive sleep apnea: Comment: CPAP Code(s): G47.33 - Obstructive sleep apnea (adult) (pediatric) Plan: Continue to use the CPAP more than 4 hours a night and benefits from this (6) Hypertension: Code(s): I10 - Essential (primary) hypertension Plan: Continue with blood pressure medication. Decrease salt intake and exercise presently continue with hydrochlorothiazide (7) Recurrent pulmonary embolism: Comment: 04/24/2015, 6 months September 2015 Code(s): I26.99 - Other pulmonary embolism without acute cor pulmonale Plan: Continue with anticoagulation (8) Anxiety, generalized: Code(s): F41.1 - Generalized anxiety disorder Plan: Stable (9) Nasal congestion: Comment: allergy nasal spray like flonase Code(s): R09.81 - Nasal congestion (10) Colon cancer screening: Code(s): Z12.11 - Encounter for screening for malignant neoplasm of colon Orders: Orders Complete Blood Count Auto Diff 6 Months I10 - Essential (primary) hypertension Comprehensive Met. Panel 6 Months I10 - Essential (primary) hypertension Free T4 (Free Thyroxine) 6 Months I10 - Essential (primary) hypertension Lipid Panel 6 Months E78.00 - Pure hypercholesterolemia, unspecified, I10 - Essential (primary) hypertension Thyroid Stimulating Hormone 6 Months I10 - Essential (primary) hypertension Vitamin B12 and Folate 6 Months I10 - Essential (primary) hypertension Referrals Cologuard Test Z12.11 - Encounter for screening for malignant neoplasm of colon, Z12.12 - Encounter for screening for malignant neoplasm of rectum Coding Level of Care Code Est Pt Prev Care >65y(84406) Diagnoses Annual physical exam Z00.00 Hypercholesterolemia E78.00 Obesity (BMI 30-39.9) E66.9 GERD (gastroesophageal reflux disease) K21.9 Obstructive sleep apnea G47.33 Hypertension I10 Recurrent pulmonary embolism I26.99 Anxiety, generalized F41.1 Nasal congestion R09.81 Colon cancer screening Z12.11
== END 2023-10-23 11:08 | disposition home or self-care (01) ==
PROVIDERS: Visit Provider Internal Medicine
DX: Z00.00 Encounter for general adult medical examination without abnormal findings (principal); I26.99 Other pulmonary embolism without acute cor pulmonale; E66.9 Obesity, unspecified; Z68.35 Body mass index [BMI] 35.0-35.9, adult; E78.00 Pure hypercholesterolemia, unspecified; K21.9 Gastro-esophageal reflux disease without esophagitis; G47.33 Obstructive sleep apnea (adult) (pediatric); I10 Essential (primary) hypertension; Z12.11 Encounter for screening for malignant neoplasm of colon; F41.1 Generalized anxiety disorder; R09.81 Nasal congestion
CPT/HCPCS: 99397

== ENCOUNTER 2023-11-16 09:18 | Outpatient (REF) | payer MEDICARE, SELFPAY | END 2023-11-16 09:19 | disposition home or self-care (01) | LOC: HO.MAMMO 09:18 | PROVIDERS: PCP Internal Medicine; Visit Provider Internal Medicine | DX: Z12.31 Encounter for screening mammogram for malignant neoplasm of breast (principal) | CPT/HCPCS: 77063; 77067 ==

== ENCOUNTER → 2023-11-16 09:30 | Outpatient (BNV) | payer MEDICARE, SELFPAY | PROVIDERS: PCP Internal Medicine; Visit Provider Radiology Diagnostic Radiology | DX: Z12.31 Encounter for screening mammogram for malignant neoplasm of breast (principal) | CPT/HCPCS: 77063; 77067 ==

== ENCOUNTER 2024-01-11 15:41 | Outpatient (AMB) | payer MEDICARE, SELFPAY ==
--- NOTE | 2024-01-11 15:41 | MHC.PC.OV ---
Intake Visit Reasons: Discuss multiple concerns Network Controller Required: No Allergies lisinopril [LISINOPRIL] Allergy (Severe, Verified 10/23/23 10:03) ANGIOEDEMA latex [LATEX] Allergy (Mild, Verified 10/23/23 10:03) RASH Tobacco use date assessed: 01/11/24 Fall risk assessment: No Falls in past year Last assessed Fall Risk: 01/11/24 Dental Screening Dental Screen Date: 10/23/23 HPI Discuss multiple concerns HPI Details 73-year-old obese female with hypercholesterolemia hypertension obstructive sleep apnea recurrent pulmonary embolism on anticoagulation coming in for follow-up. Last seen in October 2023 had colonoscopy done mammogram colonoscopy up-to-date bone density July 2023 gastroenterology notes colonoscopy February 2024 and will be holding the Eliquis 3 days prior to surgery/procedure patient has obstructive sleep apnea with good compliance. Blood work are within normal with exception of TSH which was mildly elevated. Osteoporosis noted left femur 22.8% decrease spine 11.8 increase patient has osteoporosis.has eczema - concern on HCTZ. causing rash but fort now will monitor [facility] Medical History (Updated 01/11/24 @ 17:39 by Danika Pino MD) Osteopenia Colon cancer screening Pubic bone fracture Hypertension Anxiety Pancreatic lesion Obstructive sleep apnea Peripheral vascular disease GERD (gastroesophageal reflux disease) Obesity (BMI 30-39.9) Glaucoma Osteoarthritis Thyroid nodule Hypercholesterolemia Recurrent pulmonary embolism Surgical History History of left knee surgery History of eye surgery History of tonsillectomy History of cataract extraction Family History Father Diabetes CHF (congestive heart failure) Hypertension CVD (cardiovascular disease) Mother Dementia Stroke Hypertension Son In good health Other Mental health disorder Social History Housing: House Alcohol intake: never Patient Tobacco Use Status: Never used Tobacco e-Cigarette/Vaping Use: Never Used Second Hand Smoke Exposure: No service: No Current occupational status: retired Cognitive needs: No Hearing needs: No Vision needs: Yes Questionnaire Thrive Questionnaire Date Thrive assessed: 09/22/23 AUDIT C Alcohol Use Questionnaire (AUDIT-C) 1. How often do you have a drink containing alcohol?: Never 3. How often do you have six or more drinks on one occasion?: Never Total Score: 0 ARNIE-7 AMB Questionnaire ARNIE-7 Date ARNIE - 7 assessed: 09/22/23 Source: Developed by Drs. Raul Estes, Va Stone, Sunny Mosqueda and colleagues, with an educational diana from [employer]. Physical exam (Primary Care) Tobacco/Smoking Status: Tobacco use Status Tobacco use date assessed 01/11/24 01/11/24 15:44 Patient Tobacco Use Status Never used Tobacco 01/11/24 15:44 e-Cigarette/Vaping Use Never Used 01/11/24 15:44 Thrive Assessment: Date of Thrive Assessment Date Thrive assessed 09/22/23 01/11/24 15:44 Telehealth Telehealth Telehealth Platform: Telephone Location of provider rendering services: practice address Location of patient: address on file Patient Identification confirmed using: Name, : Yes Telehealth method: voice only ([phone]// landline ) Patient verbally consented to treatment: Yes Patient verbally consented to billing insurance company: Yes Patient informed of any privacy concerns related to visit: Yes Minutes spent on Phone/Video with Pt.: 25 Assessment and Plan Assessment & Plan (1) Osteoporosis: Comment: July 2023 Code(s): M81.0 - Age-related osteoporosis without current pathological fracture Plan: Discussion with the patient regarding osteoporosis and treatments discussed about alendronate but advised to see dentist first . Advised to continue with calcium and vitamin-D and keep active. (2) Positive colorectal cancer screening using Cologuard test: Comment: October 2023 Code(s): R19.5 - Other fecal abnormalities Plan: Colonoscopy planned February 2024 (3) Recurrent pulmonary embolism: Comment: 04/24/2015, 6 months September 2015 Code(s): I26.99 - Other pulmonary embolism without acute cor pulmonale Plan: Continue with anticoagulation but 3 days before may stop the Eliquis (4) Obstructive sleep apnea: Comment: CPAP Code(s): G47.33 - Obstructive sleep apnea (adult) (pediatric) Plan: Continue to use the CPAP more than 4 hours a night and benefits from the (5) Obesity (BMI 30-39.9): Code(s): E66.9 - Obesity, unspecified Plan: Continue to be active. Diet and exercise Coding Level of Care Code Tele Est Pt Level 4 (44042) Diagnoses Osteoporosis M81.0 Positive colorectal cancer screening using Cologuard test R19.5 Recurrent pulmonary embolism I26.99 Obstructive sleep apnea G47.33 Obesity (BMI 30-39.9) E66.9
== END 2024-01-11 17:36 ==
LOC: HO.HMGH 15:41
PROVIDERS: PCP Internal Medicine; Visit Provider Internal Medicine
DX: M81.0 Age-related osteoporosis without current pathological fracture (principal); R19.5 Other fecal abnormalities; I26.99 Other pulmonary embolism without acute cor pulmonale; G47.33 Obstructive sleep apnea (adult) (pediatric)
CPT/HCPCS: 99443

== ENCOUNTER 2024-02-17 10:11 | Day surgery (SDC) | payer MEDICARE, SELFPAY ==
[2024-02-15 13:55] VITALS: BMI 35.2
--- NOTE | 2024-02-16 10:19 | P.CONAN_ITS ---
Documented by User: Tasha Lozano NP 02/16/24 10:21 HPI - Anesthesia Eval Consult details Narrative: 73yo F for Colonoscopy Eliquis for recurrent PE PMFSH Active Problems Active Problems: All Active Problems Osteoporosis (Acute) Positive colorectal cancer screening using Cologuard test (Acute) Anxiety, generalized (Acute) Allergic dermatitis (Acute) Nasal congestion (Acute) Shortness of breath on exertion (Acute) Viral infection (Acute) TSH elevation (Acute) Acquired clawfoot (Acute) Dry skin dermatitis (Acute) Tinea corporis (Acute) Seborrheic dermatitis of scalp (Acute) Annual physical exam (Acute) Recurrent pulmonary embolism (Acute) Hypertension (Acute) Obstructive sleep apnea (Acute) GERD (gastroesophageal reflux disease) (Acute) Obesity (BMI 30-39.9) (Acute) Osteoarthritis (Acute) Hypercholesterolemia (Acute) Past Medical History Medical History (Updated 02/15/24 @ 13:45 by Meyl Ansari RN) Sleep apnea Hiatal hernia Colon cancer screening Osteopenia Pubic bone fracture Hypertension Anxiety Pancreatic lesion Obstructive sleep apnea Peripheral vascular disease GERD (gastroesophageal reflux disease) Obesity (BMI 30-39.9) Glaucoma Osteoarthritis Thyroid nodule Hypercholesterolemia Recurrent pulmonary embolism Family History Family History Father Diabetes CHF (congestive heart failure) Hypertension CVD (cardiovascular disease) Mother Dementia Stroke Hypertension Son In good health Other Mental health disorder Surgical History Surgical History (Updated 02/15/24 @ 13:45 by Mely Ansari RN) H/O colonoscopy History of left knee surgery History of eye surgery History of tonsillectomy History of cataract extraction Social History Social History Housing: House Alcohol intake: never Patient Tobacco Use Status: Never used Tobacco e-Cigarette/Vaping Use: Never Used Second Hand Smoke Exposure: No Use of substances other than those prescribed or required for medical reasons: No Are you DNR?: No Advance Directives: No Advance Directives Information Provided: Yes service: No Current occupational status: retired Cognitive needs: No Hearing needs: No Vision needs: Yes Meds Allergies Allergy/AdvReac Type Severity Reaction Status Date / Time lisinopril [LISINOPRIL] Allergy Severe ANGIOEDEMA Verified 02/17/24 10:41 latex [LATEX] Allergy Mild RASH Verified 02/17/24 10:41 Home Medications ?Medication ?Instructions ?Recorded ?Confirmed ?Last Taken ?Type tafluprost (PF) 0.0015 % eye drops 1 drp ophthalmic (eye) BEDTIME 06/29/20 02/15/24 Unknown History in a dropperette (Zioptan (PF)) timolol 0.5 % eye drops 1 drp ophthalmic (eye) DAILY 12/28/20 02/15/24 Unknown History cholecalciferol (vitamin D3) 25 50 mcg PO DAILY 10/08/21 02/15/24 Unknown History mcg (1,000 unit) capsule CPAP (CPAP Machine/Device) 10/10/22 10/23/23 Unknown History calcium carbonate 500 mg PO DAILY 02/15/24 02/15/24 Unknown History dorzolamide 22.3 mg-timolol 6.8 1 drp ophthalmic (eye) BID 02/15/24 02/15/24 Unknown History mg/mL eye drops Exam Height,Weight and Vital Signs: Height 5 ft 3 in Weight 90.265 kg Pertinent Lab Results Pertinent Lab Results: Laboratory Tests 10/13/23 06:58 WBC 8.2 Hgb 14.1 Hct 44.2 Plt Count 262 Sodium 142 Potassium 3.6 Chloride 103 Carbon Dioxide 29 BUN 17 H Creatinine 0.80 Assessment and Plan Assessment Anesthesia Assessment: Chart Reviewed Documented by User: Oh Ramos MD 02/17/24 10:59 [facility] Past Medical History Medical History (Updated 02/15/24 @ 13:45 by Mely Ansari, TERRA) Sleep apnea Hiatal hernia Colon cancer screening Osteopenia Pubic bone fracture Hypertension Anxiety Pancreatic lesion Obstructive sleep apnea Peripheral vascular disease GERD (gastroesophageal reflux disease) Obesity (BMI 30-39.9) Glaucoma Osteoarthritis Thyroid nodule Hypercholesterolemia Recurrent pulmonary embolism Family History Family History Father Diabetes CHF (congestive heart failure) Hypertension CVD (cardiovascular disease) Mother Dementia Stroke Hypertension Son In good health Other Mental health disorder Family history of problems with anesthesia: No Surgical History Surgical History (Updated 02/15/24 @ 13:45 by Mely Ansari RN) H/O colonoscopy History of left knee surgery History of eye surgery History of tonsillectomy History of cataract extraction History of Problems with Anesthesia: No Social History Social History Housing: House Alcohol intake: never Patient Tobacco Use Status: Never used Tobacco e-Cigarette/Vaping Use: Never Used Second Hand Smoke Exposure: No Use of substances other than those prescribed or required for medical reasons: No Are you DNR?: No Advance Directives: No Advance Directives Information Provided: Yes service: No Current occupational status: retired Cognitive needs: No Hearing needs: No Vision needs: Yes Meds Allergies Allergy/AdvReac Type Severity Reaction Status Date / Time lisinopril [LISINOPRIL] Allergy Severe ANGIOEDEMA Verified 02/17/24 10:41 latex [LATEX] Allergy Mild RASH Verified 02/17/24 10:41 Home Medications ?Medication ?Instructions ?Recorded ?Confirmed ?Last Taken ?Type tafluprost (PF) 0.0015 % eye drops 1 drp ophthalmic (eye) BEDTIME 06/29/20 02/15/24 Unknown History in a dropperette (Zioptan (PF)) timolol 0.5 % eye drops 1 drp ophthalmic (eye) DAILY 12/28/20 02/15/24 Unknown History cholecalciferol (vitamin D3) 25 50 mcg PO DAILY 10/08/21 02/15/24 Unknown History mcg (1,000 unit) capsule CPAP (CPAP Machine/Device) 10/10/22 10/23/23 Unknown History calcium carbonate 500 mg PO DAILY 02/15/24 02/15/24 Unknown History dorzolamide 22.3 mg-timolol 6.8 1 drp ophthalmic (eye) BID 02/15/24 02/15/24 Unknown History mg/mL eye drops Exam Airway Mallampati Class: III TM Dist: >3cm Assessment and Plan Assessment Anesthesia Assessment: Anesthesia Plan Discussed Final Anesthetic Review Family History of Problems with Anesthesia: No History of Problems with Anesthesia: No NPO: Yes ASA Class: III Final Preanesthetic Review: No Changes in Pt Med Stat, Meds/Allgs Chart Reviewed, Consent Obtained/Reviewed and Anes Risks/Benef Reviewed Patient Risk: Intermediate Procedure Risk: Low Anesthetic Plan Anesthetic Plan: TIVA Disposition: Standard PACU
[2024-02-17 10:43] VITALS: BMI 33.8
[2024-02-17 10:53] VITALS: BP 180/86; PULSE 60; RESP 16; TEMP 37.1; O2SAT 96
[2024-02-17] MEDS: Lactated Ringers 1,000 ML 100 ML IVCONT (11:06)
[2024-02-17 12:18] VITALS: BP 112/64; PULSE 65; RESP 16; TEMP 36.2; O2SAT 95
--- NOTE | 2024-02-17 12:23 | P.BOP_ITS ---
Brief Operative Note Date of Service: 02/17/24 Pre-op diagnosis: + Cologuard Post-op diagnosis: other (Diverticulosis) Procedure: Colonoscopy to the cecum Surgeon: Raul Napoles MD Anesthesia: MAC Was an Engraver Steel Plate used for this Procedure?: No Estimated blood loss (mL): 0 Pathology: none sent Condition: stable Disposition: PACU
[2024-02-17 12:36] VITALS: BP 131/93; PULSE 75; RESP 18; TEMP 36.2; O2SAT 96
--- NOTE | 2024-02-17 12:41 | OP_ITS ---
DATE OF SERVICE: 02/17/2024 SURGEON: Raul Napoles MD INDICATIONS: The patient presents for evaluation of positive Cologuard. Full consent has been obtained from her for this, including risks of bleeding and perforation. PREOPERATIVE DIAGNOSIS: POSTOPERATIVE DIAGNOSIS: PROCEDURE PERFORMED: Colonoscopy to cecum. ESTIMATED BLOOD LOSS: COMPLICATIONS: ANESTHESIA: Monitored anesthesia care. ASSISTANTS: SPECIMENS: PREOPERATIVE DIAGNOSES: Positive Cologuard. POSTOPERATIVE DIAGNOSES: Positive Cologuard, diverticulosis, and internal hemorrhoids. DESCRIPTION OF PROCEDURE: The patient was placed in the left lateral decubitus position. The digital rectal exam revealed no abnormalities. The Olympus video pediatric colonoscope was then entered into the rectum and advanced easily to the cecum. Once in the cecum, I did identify normal-appearing cecal pouch with appendiceal orifice and a normal-appearing ileocecal valve. The entire cecum and ileocecal valve were well visualized and appeared normal. The scope was then slowly withdrawn assessing all mucosal surfaces carefully. Preparation was excellent. I did not visualize any sign of polyps, colitis, nor angiodysplasias. There was a mild amount of sigmoid diverticulosis. In the rectum, scope was retroflexed, visualizing internal hemorrhoids, but no other pathology. The rectal mucosa appeared normal. The scope was straightened and withdrawn from the patient. She tolerated the procedure well and was returned to the recovery area in stable condition. IMPRESSION: 1. Diverticulosis. 2. Internal hemorrhoids. PLAN: Given today's negative colonoscopy and no family history of colon cancer, I advised her that I do not think she will need any further screening colonoscopies. She was advised to resume her Eliquis today. She will, otherwise, see me on a p.r.n. basis. MD RADHA Mosley/AI / [id number]
--- NOTE | 2024-02-18 06:41 | PC.NURSE ---
24hr update documented on paper chart
== END 2024-02-17 13:14 | disposition home or self-care (01) ==
PROVIDERS: PCP Internal Medicine; Visit Provider Internal Medicine
PROC: 0DJD8ZZ Inspection of Lower Intestinal Tract, Via Natural or Artificial Opening Endoscopic (ICD-10-PCS; CPT 45378; principal; 2024-02-17 11:30)
DX: R19.5 Other fecal abnormalities (principal); K57.30 Diverticulosis of large intestine without perforation or abscess without bleeding; K64.8 Other hemorrhoids; I10 Essential (primary) hypertension; Z86.711 Personal history of pulmonary embolism; Z79.01 Long term (current) use of anticoagulants; Z79.899 Other long term (current) drug therapy
CPT/HCPCS: 45378; J2704

== ENCOUNTER 2024-03-22 14:24 | Inpatient (IN) | payer MEDICARE, SELFPAY ==
[2024-03-22] VITALS (11 sets, daily range): BP systolic 123–188; BP diastolic 81–99; PULSE 62–90; RESP 14–23; TEMP 36.5–36.9; O2SAT 92–100; BMI 35.4; BMI 36.8
--- NOTE | ~2024-03-22 | CT_ITS ---
EXAMINATION: CT angio head neck stroke, CT head for stroke CLINICAL INFORMATION: Stroke COMPARISON: No relevant prior imaging. TECHNIQUE: Flaker Tender images were obtained. A CT angiogram of the head and neck was performed in the arterial phase after the intravenous administration of 70 mL Omnipaque 350. Pre and delayed postcontrast images of the head were also obtained. 3D images were processed on an independent workstation under concurrent supervision. Arterial stenoses are measured in accordance with NASCET criteria or similar method if applicable. This CT examination was performed using dose optimization techniques as appropriate, including one or more of the following: Automated exposure control, iterative reconstruction, and adjustment of technique factors (mA and/or kVp) according to patient size (this includes techniques or standardized protocols for targeted exams where dose is matched to indication/reason for exam). Fleischner Society criteria for the followup of incidental pulmonary nodules was implemented if appropriate. Total exam dose-length product 2098 mGy-cm FINDINGS: Head: There is no acute intracranial hemorrhage. Postcontrast images reveal no abnormal intracranial mass or enhancement. There is no intracranial mass effect or midline shift. Lateral and third ventricles are normal. There is no intracranial mass effect or midline shift. No abnormal extra axial collection. Lateral and third ventricles are normal. No hydrocephalus. Ill-defined foci of hypoattenuation are visualized within the basal ganglia. Torres-white matter differentiation is otherwise preserved and there is no evidence of acute territorial infarct. The calvarium and skull base are intact. Mastoid air cells and middle ear cavities are well aerated. Moderate to severe paranasal sinus disease primarily affecting the ethmoid air cells and maxillary sinuses. CT angiogram neck: Scattered atheromatous calcification involves the aortic arch apex. Origins of major aortic branches are widely patent., Carotid arteries and the carotid bifurcations are normal. Extra cranial internal carotid arteries are widely patent. The cervical segments of the vertebral arteries are patent. CT angiogram head: Intracranial internal carotid arteries are normal. The intradural vertebral artery segments and basilar artery are patent. Anterior, middle, and posterior cerebral complexes are normal. No intracranial vascular occlusion. No identifiable aneurysm or high flow vascular lesion. Other: The thyroid gland demonstrates heterogeneous enhancement characteristics. Soft tissues of the neck are otherwise unremarkable. Grossly no pathologically enlarged cervical lymph nodes. Lung apices are clear. No acute osseous finding. Specifically no worrisome lytic or blastic osseous lesion. Of note there is an os odontoideum versus a chronic ununited type II odontoid process fracture. There is some thickening of the retrodental soft tissues causing mild AP narrowing of the canal the level of C1-C2. CT/CT angio head neck stroke IMPRESSION: There are scattered chronic small vessel ischemic changes within the periventricular white matter. No evidence of acute territorial infarct or hemorrhage. No abnormal intracranial mass or enhancement. The CT angiogram reveals no stenosis of the cervical carotid or vertebral arteries. No intracranial large vessel occlusion. Of note there is an od odontoideum versus a chronic ununited type II odontoid process fracture. There is some thickening of the retrodental soft tissues causing mild AP narrowing of the canal the level of C1-C2. Dedicated flexion-extension radiographs of the cervical spine can be obtained to assess for the presence of segmental instability. This critical result was discussed with Zacarias Loja at 4:13 PM on 03/22/2024 and it was ascertained that the content and urgency of the report was understood at the time of direct communication.
--- NOTE | ~2024-03-22 | XR_ITS ---
EXAMINATION: XR CERVICAL SPINE CLINICAL INFORMATION: Abnormal CT neck COMPARISON: Chest x-ray 03/28/2019 TECHNIQUE: 6 views of the cervical spine, inclusive of flexion and extension views, were obtained. FINDINGS: There is normal cervical lordosis. The vertebral heights and alignment is normal. On flexion and extension views there is there is no signal change in the alignment of the C1 and C2 vertebra. The prevertebral soft tissues are normal. No acute fracture or dislocation seen on this exam. XR/XR cervical spine w flex/ext IMPRESSION: Unremarkable cervical spine exam. No visible acute fracture, dislocation or subluxation seen. No major change compared to previous study 03/28/2019.
--- NOTE | ~2024-03-22 | XR_ITS ---
EXAMINATION: XR CHEST CLINICAL INFORMATION: Difficulty breathing COMPARISON: 10/24/2022 TECHNIQUE: Frontal view of the chest was obtained. FINDINGS: There is a prominent interstitial pattern in the right and left mid to upper lung which could reflect pneumonitis since it is more conspicuous than on 10/24/2022, or reflect a chronic fibrotic pattern. Follow-up PA and lateral when clinically feasible would be helpful. Heart and pulmonary vessels are normal. There is no evidence for basilar edema. XR/XR chest 1V IMPRESSION: Bilateral interstitial opacities may reflect pneumonia . Follow-up PA and lateral would be helpful.
--- NOTE | 2024-03-22 14:37 | ECG_ITS ---
Test Reason : Stroke Protocol Blood Pressure : / mmHG Vent. Rate : 060 BPM Atrial Rate : 060 BPM P-R Int : 188 ms QRS Dur : 102 ms QT Int : 430 ms P-R-T Axes : 050 015 028 degrees QTc Int : 430 ms Normal sinus rhythm Normal ECG When compared with ECG of 15-OCT-2018 11:35, No significant change was found Referred By: Zacarias Loja Electronically Signed By:LISETTE BASHIR MD
--- NOTE | 2024-03-22 14:38 | ED.NEUROSD ---
HPI - Neuro Symptoms/Deficit General Chief Complaint: Neuro Symptoms/Deficit Stated Complaint: CP,SEEMS CONFUSED,PROB WORD FINDING,+ELIQUIS Time Seen by Provider: 03/22/24 14:36 Source: patient and EMS Mode of arrival: ambulatory Limitations: no limitations History of Present Illness HPI Narrative: 73 year old female PMH: Hypertension hypercholesterolemia obstructive sleep apnea recurrent PE. Patient states she was at the car dealership around 02:00 o'clock he met the bathroom she had gone P when she started to have trouble with balance was confused complain of chest pain and dizziness. Patient denies fevers chills falls nausea vomiting or diarrhea. Per EMS patient was having trouble with word finding she could not recall why she is on Eliquis though she could tell us that she was on Eliquis and she states she feels confused. Related Data Home Medications ?Medication ?Instructions ?Recorded ?Confirmed tafluprost (PF) 0.0015 % eye drops 1 drp ophthalmic (eye) BEDTIME 06/29/20 02/15/24 in a dropperette (Zioptan (PF)) timolol 0.5 % eye drops 1 drp ophthalmic (eye) DAILY 12/28/20 02/15/24 cholecalciferol (vitamin D3) 25 50 mcg PO DAILY 10/08/21 02/15/24 mcg (1,000 unit) capsule CPAP (CPAP Machine/Device) 10/10/22 10/23/23 calcium carbonate 500 mg PO DAILY 02/15/24 02/15/24 dorzolamide 22.3 mg-timolol 6.8 1 drp ophthalmic (eye) BID 02/15/24 02/15/24 mg/mL eye drops Previous Rx's ?Medication ?Instructions ?Recorded omeprazole 20 mg capsule,delayed 20 mg PO DAILY 90 days #90 caps 02/13/23 release hydrochlorothiazide 25 mg tablet 25 mg PO QAM 90 days #90 tabs 07/24/23 apixaban 5 mg tablet (Eliquis) 5 mg PO BID 90 days #180 tabs 01/11/24 Allergies Allergy/AdvReac Type Severity Reaction Status Date / Time lisinopril [LISINOPRIL] Allergy Severe ANGIOEDEMA Verified 03/22/24 15:02 latex [LATEX] Allergy Mild RASH Verified 03/22/24 15:02 [facility] Past Medical History Medical History (Updated 03/22/24 @ 16:16 by Zacarias Loja DO) Sleep apnea Hiatal hernia Colon cancer screening Osteopenia Pubic bone fracture Hypertension Anxiety Pancreatic lesion Obstructive sleep apnea Peripheral vascular disease GERD (gastroesophageal reflux disease) Obesity (BMI 30-39.9) Glaucoma Osteoarthritis Thyroid nodule Hypercholesterolemia Recurrent pulmonary embolism Surgical History (Updated 02/15/24 @ 13:45 by Mely Ansari RN) H/O colonoscopy History of left knee surgery History of eye surgery History of tonsillectomy History of cataract extraction Family History Family History Father Diabetes CHF (congestive heart failure) Hypertension CVD (cardiovascular disease) Mother Dementia Stroke Hypertension Son In good health Other Mental health disorder Social History Social History Housing: House Alcohol intake: never Patient Tobacco Use Status: Never used Tobacco e-Cigarette/Vaping Use: Never Used Second Hand Smoke Exposure: No Advance Directives: No Advance Directives Information Provided: Yes service: No Current occupational status: retired Cognitive needs: No Hearing needs: No Vision needs: Yes Physical Exam Vital Signs: Vital Signs: Last Vital Signs Temp 98.5 F 03/22/24 14:57 Pulse 65 03/22/24 15:55 Resp 23 H 03/22/24 15:55 BP 188/97 H 03/22/24 15:55 Pulse Ox 94 03/22/24 15:55 O2 Del Method Room Air 03/22/24 15:55 BMI result Body Mass Index 35.4 Neurological exam: CN II- XII tested. Patient is alert and oriented to person place and time. Patient has no dysphagia or dysarthia, denies good vision in all four vision zavaleta no nystagmus on exam, good strength to upper and lower extremities with normal reflexes to brachioradialis, wrist, patella and achilles. Negative romberg, good finger to nose and heel to chapman. General: Well-appearing well-nourished in no signs of distress HEENT: Normocephalic atraumatic Neck: No signs of JVD, no masses no tenderness or lymphadenopathy Cardiovascular: Regular rate and rhythm Respiratory: Clear to auscultation bilaterally Abdomen: Soft nontender no masses Extremities: Normal pedal pulses no signs of edema Skin: Dry warm no rashes Back: No tenderness full ROM Course Course Course Narrative: 1525 Patient is having prolonged delay in the CT read I reached out to radiology to see what the delay was they have not started read the CT scans yet I will put him List explained that it is stroke in the emergent need Reevaluation(s) Reevaluation #1: 1545Patient remains confused but seems to be able to find words better at this time. XR read as pneumonia I will start on doxycycline and rocephin. I again paged [facility] radiology about the CT read. Reevaluation #2: 1616 finally was able to get a call back from [facility] stating that there was no elbow. I will give patient admitted I did speak with hospitalist service who agreed with admission Medications Administered Discontinued Medications Generic Name Dose Route Start Last Admin Trade Name Freq PRN Reason Stop Dose Admin Doxycycline Monohydrate 100 mg 03/22/24 15:44 03/22/24 16:09 Doxycycline Monohydrate 100 Mg Capsule PO 03/22/24 15:45 100 mg ONCE ONE Administration Sodium Chloride 1,000 mls @ 999 mls/hr 03/22/24 14:45 03/22/24 15:51 Ns IV 03/22/24 15:45 999 mls/hr .Q1H1M ISRAEL Administration Sodium Chloride 1,000 mls @ 999 mls/hr 03/22/24 14:45 03/22/24 15:51 Ns IV 03/22/24 15:45 999 mls/hr .Q1H1M ISRAEL Administration Ceftriaxone Sodium 1 gm/ 50 mls @ 100 mls/hr 03/22/24 15:44 03/22/24 16:08 Sodium Chloride IV 03/22/24 16:13 100 mls/hr ONCE ONE Administration Iohexol 100 ml 03/22/24 14:52 03/22/24 14:52 Iohexol 350 Mg/Ml 100 Ml Infus..Btl IV 03/22/24 14:53 70 ml ONCE ONE Administration Medical Decision Making Medical Decision Making MDM Narrative: Concern for stroke patient is on Eliquis likely will not be a candidate for TNK I did speak with the nurse from Neurology the patient fluids sent for CTA and reassess. Differential Diagnosis Differential Diagnoses: The differential diagnosis associated with the presentation includes CVA TIA stroke hypoglycemia weakness dehydration electrolyte abnormality Admission/Observation Consideration of admission/observation: Escalation of care including admission/observation considered Consult Healthcare Provider Management of the patient was discussed with: Hospitalist and Customer Consultant Lab Data MDM Lab Attestation statement: I reviewed the patient's lab results. Initial troponin is elevated patient is pain-free I will repeat troponin at this time. 03/22/24 15:28 03/22/24 15:28 Labs: Lab Results 03/22/24 03/22/24 03/22/24 Range/Units 15:05 15:28 15:39 WBC 11.3 H (4.8-10.8) X10*3/uL RBC 4.96 (4.20-5.50) X10*6/uL Hgb 14.8 (12.0-16.0) g/dl Hct 45.8 (37.0-47.0) % MCV 92.3 (80.0-98.0) fL MCH 29.8 (27.0-33.0) pg MCHC 32.3 (31.0-35.0) g/dl RDW 14.7 (11.0-16.0) % Plt Count 222 (160-400) X10*3/uL MPV 10.7 (9.4-12.3) fL Immature Gran % (Auto) 0.3 (0.0-0.4) % Neut % (Auto) 75.5 H (45-73) % Lymph % (Auto) 14.5 L (20-40) % [place]eadle % (Auto) 5.6 (2-11) % Eos % (Auto) 3.7 (0-4) % Baso % (Auto) 0.4 (0-2) % Lymph # (Auto) 1.6 (1.2-4.9) X10*3/uL [place] # (Auto) 0.6 (0.1-1.2) X10*3/uL Eos # (Auto) 0.4 (0.0-0.4) X10*3/uL Baso # (Auto) 0.1 (0.0-0.2) X10*3/uL Abs Immat Gran (auto) 0.03 (0.00-0.03) X10*3/uL Absolute Neuts (auto) 8.5 H (2.0-8.3) x10*3/uL Absolute Nucleated RBC 0.000 (0.0-0.012) X10*3/uL Nucleated RBC % (auto) 0.0 (0.0-0.2) /100WBC PT 13.0 (11.1-13.3) SEC INR 1.1 (0.9-1.1) APTT 39.5 H (26.0-36.8) SEC Sodium 142 (135-145) mmol/L Potassium 4.3 (3.3-5.1) mmol/L Chloride 103 (96-108) mmol/L Carbon Dioxide 31 H (22-29) mmol/L Anion Gap 12 (12-20) BUN 16 (9-16) mg/dL Creatinine 0.75 (0.5-1.4) mg/dL Estim Creat Clear Calc 71.4 Estimated GFR > 60 POC Glucose 86 (60-115) mg/dL Random Glucose 99 (60-115) mg/dL Calcium 10.9 H D (8.4-10.2) mg/dL Troponin I High Sens 197.3 H* (<3.5-17.0) ng/L Triglycerides 83 (<150) mg/dL Cholesterol 201 H (<200) mg/dL LDL Cholesterol, Calc 130 H (<100) mg/dL HDL Cholesterol 55 (>40) mg/dL Urine Color Yellow Urine Appearance Clear Urine pH 8.5 (5.0-9.0) Ur Specific [place] 1.015 (1.005-1.025) Urine Protein Negative (Neg-Trace) mg/dL Urine Glucose (UA) Negative (Negative) mg/dL Urine Ketones Trace (Negative) mg/dL Urine Blood Negative (Negative) Urine Nitrite Negative (Negative) Ur Leukocyte Esterase Trace H (Negative) Urine RBC 0-2 (0-2) /HPF Urine WBC 0-5 (0-5) /HPF Ur Squamous Epith Cells 0-2 (0-2) /HPF Urine Bacteria None Seen (None Seen) Hyaline Casts 0-2 (0-2) /LPF Independent Interpretation I performed an independent interpretation of an: EKG, Rhythm Strip, Plain X-Ray and CT Scan Radiology Impression Discussion of test interpretation with radiology: I have reviewed the radiologist's reading. Independent Historian Clinical information obtained from an independent historian. History obtained from or confirmed by: EMS External Record Review External record reviewed: Inpatient record, Office record and Outpatient record NIH Stroke Scale Internal: Initial- Upon Arrival Level of Consciousness: Alert Level of Consciousness Questions: Answers both questions correctly Level of Consciousness Commands: Performs both tasks correctly Best Gaze: Normal Visual: No visual loss Facial Palsy: Normal Motor Arm (Right): No drift Motor Arm (Left): No drift Motor Leg (Right): No drift Motor Leg (Left): No drift Limb Ataxia: Absent Sensory: Normal Best Language: No aphasia Dysarthia: Normal Extinction and Inattention: No abnormality Score: 0 Critical Care Time Critical Care Time Critical Care Time: Yes Total Critical Care Time: 50 Attestation: 50 minutes critical care spent in care of the patient came as code stroke multiple re-evaluations patient have minimally elevated troponin I will continue admission to medicine Discharge Plan Discharge Clinical Impression: TIA (transient ischemic attack), Word finding difficulty, Chest pain Patient Disposition: Admitted As Inpatient Prescriptions: No Action hydrochlorothiazide 25 mg tablet 25 mg PO QAM 90 Days Qty: 90 3RF Eliquis 5 mg tablet 5 mg PO BID 90 Days Qty: 180 3RF tafluprost (PF) [Zioptan (PF)] 0.0015 % dropperette 1 drp ophthalmic (eye) BEDTIME timolol 0.5 % Drops 1 drp OPHTHALMIC (EYE) DAILY calcium carbonate [Calcium 500] 500 mg calcium (1,250 mg) Tablet 500 mg PO DAILY dorzolamide-timolol 22.3-6.8 mg/mL Drops 1 drp OPHTHALMIC (EYE) BID cholecalciferol (vitamin D3) 25 mcg (1,000 unit) capsule 50 mcg PO DAILY omeprazole 20 mg capsule,delayed release(DR/EC) 20 mg PO DAILY 90 Days Qty: 90 3RF (DME) CPAP Machine/Device Device See Rx Instructions .Route Rx Instructions: As directed Print Language: Serbian
[2024-03-22] MEDS: iohexoL 350 MG/ML 100 ML INFUS..BTL IV (14:52)
[2024-03-22 15:12] LABS: Glucose, Whole Blood 86 mg/dL (60-115)
--- NOTE | 2024-03-22 15:30 | PC.NURSE ---
patient arrives VIA EMS, per EMS patient was at the car dealership and went to use the rest room and upon using the rest room felt very dizzy and got a headache. EMS states patient did not have syncopal episode, upon going to see the patient the patient was having difficulty finding words, patient immediately to CT scan upon arriving to ED. 18g PIV placed by EMS. POC testing obtained immediately upon arrival. patient alert to self and able to tell me her name and date of , however unable to tell me year and what happened today. patient following commands appropriately. equal strength in all 4 extremities, patient sensation present and equal in all four extremities and peripheral vision in tact. extinction and inattention in tact, able to identify basic objects such as pen and scissors. patient with no facial droop, no slurred speech, denies headache at this time, patient on monitor and VSS at this time. able to follow instructions and shows no signs of distress at this time.
[2024-03-22 15:32] LABS: MANUAL DIFF FLAG NO
[2024-03-22 15:38] LABS: Basophils Absolute Auto 0.1 X10*3/uL (0.0-0.2); Basophils Percent Auto 0.4 % (0-2); Eosinophils Absolute Auto 0.4 X10*3/uL (0.0-0.4); Eosinophils Percent Auto 3.7 % (0-4); Hematocrit 45.8 % (37.0-47.0); Hemoglobin 14.8 g/dl (12.0-16.0); Imm Gran Abs Auto 0.03 X10*3/uL (0.00-0.03); Imm Gran Pct Auto 0.3 % (0.0-0.4); Lymphocytes Absolute Auto 1.6 X10*3/uL (1.2-4.9); Lymphocytes Percent Auto 14.5 % (20-40); Mean Corpuscular HGB Conc 32.3 g/dl (31.0-35.0); Mean Corpuscular Hemoglobin 29.8 pg (27.0-33.0); Mean Corpuscular Volume 92.3 fL (80.0-98.0); Mean Platelet Volume 10.7 fL (9.4-12.3); Monocytes Absolute Auto 0.6 X10*3/uL (0.1-1.2); Monocytes Percent Auto 5.6 % (2-11); Neutrophils Absolute Auto 8.5 x10*3/uL (2.0-8.3); Neutrophils Percent Auto 75.5 % (45-73); Platelet Count 222 X10*3/uL (160-400); Red Blood Count 4.96 X10*6/uL (4.20-5.50); Red Cell Distribution Width 14.7 % (11.0-16.0); White Blood Count 11.3 X10*3/uL (4.8-10.8)
[2024-03-22 15:39] LABS: INTERNATIONAL NORM RATIO 1.1 (0.9-1.1)
[2024-03-22 15:42] LABS: Partial Thromboplastin Time 39.5 SEC (26.0-36.8)
[2024-03-22 15:43] LABS: Stroke Lab Use COMPLETE
[2024-03-22 15:45] LABS: Appearance Urine Clear; Color Urine Yellow; Glucose Urine UA Negative (Negative); Leukocyte Esterase Urine Trace (Negative); Nitrite Urine Negative (Negative); PH 8.5 (5.0-9.0); Specific Gravity - Urine 1.015 (1.005-1.025); UMIC TRIGGER UACC YES; Urine Blood Negative (Negative); Urine Ketones Trace mg/dL (Negative); Urine Protein Negative (Neg-Trace)
[2024-03-22 15:50] LABS: Anion Gap 12 (12-20); Blood Urea Nitrogen 16 mg/dL (9-16); Calcium 10.9 mg/dL (8.4-10.2); Carbon Dioxide 31 mmol/L (22-29); Chloride 103 mmol/L (96-108); Cholesterol 201 mg/dL (<200); Creatinine Clr Calc Pharmacy 71.4; Estimated Glomerular Filt Rate > 60; Glucose Random 99 mg/dL (60-115); HDL Cholesterol 55 mg/dL (>40); LDL Cholesterol Calculated 130 mg/dL (<100); Potassium 4.3 mmol/L (3.3-5.1); Sodium 142 mmol/L (135-145); Triglycerides 83 mg/dL (<150)
[2024-03-22 15:50] LABS: Bacteria Urine None Seen (None Seen); Hyaline Casts Urine 0-2 /LPF (0-2); RBC Urine 0-2 /HPF (0-2); Squamous Epithelial Cell Urine 0-2 /HPF (0-2); WBC Urine 0-5 /HPF (0-5)
[2024-03-22] MEDS: 0.9 % Sodium Chloride 1,000 ML 999 ML IV ×2 (15:51)
--- NOTE | 2024-03-22 15:52 | PC.NURSE ---
blood cultures not drawn on patient prior to abx administration, this RN asked MD if he wanted abx drawn, MD stated he did not and to start ABX regardless
[2024-03-22] MEDS: cefTRIAXone sodium 1 GM in 0.9 % Sodium Chloride 50 ML IV (16:08)
[2024-03-22] MEDS: Doxycycline Monohydrate 100 MG CAPSULE PO (16:09)
--- NOTE | 2024-03-22 16:15 | ECG_ITS ---
Test Reason : chest pain Blood Pressure : / mmHG Vent. Rate : 084 BPM Atrial Rate : 084 BPM P-R Int : 174 ms QRS Dur : 098 ms QT Int : 412 ms P-R-T Axes : 034 005 019 degrees QTc Int : 486 ms Normal sinus rhythm Normal ECG When compared with ECG of 22-MAR-2024 15:06, No significant change was found Referred By: Cecily Meza Electronically Signed By:LISETTE BASHIR MD
[2024-03-22 17:29] LABS: Troponin-I High Sensitivity 307.3 ng/L (<3.5-17.0)
--- NOTE | 2024-03-22 17:51 | P.HPHOSP_ITS ---
History of Present Illness Date of Service: 03/22/24 Attending physician on admission: [facility] Chief Complaint: chest pain 73 year old female with history of hld, recurrent PE on eliquis, htn, osteoporosis, gerd, pvd, theresa on cpap presented to the ED earlier today for evaluation of chest pain. Reports was a at car [employer] and ambulated to the bathroom and developed 7/10 nonradiating chest pain with associated lightheadedness. Per EMS, patient was also noted to have word finding difficulty and confusion en route. Since arrival, has been hypertensive to 180/99, vitals otherwise wnl. Has a leukocytosis 11.3. Renal function and electrolyte levels normal. Initial troponin 197, repeat 307. EKG shows NSR, no ST/T-wave abnormality. UA unremarkable. Chest x-ray shows bilateral interstitial opacities possibly reflecting pneumonia however patient has no upper respiratory symptoms or fevers. Head CT negative for acute intracranial abnormality but shows chronic white matter disease. CTA of the head/neck negative for large vessel occlusion or hemodynamically significant stenosis. Possible os odontoideum vs chronic ununited type II odontoid process fracture. In the ED given, iv ctx and doxy as well as NS. Review of Systems 2 Review of Systems: General: No fevers, malaise, unintentional weight loss HEENT: No blurred vision, diplopia. No sore throat, nasal congestion, rhinorrhea, sinus pain, ear pain Cardiovascular: +chest pain. No palpitations, or leg edema Respiratory: No shortness of breath, wheezing, cough GI: No abdominal pain, nausea, vomiting, diarrhea, constipation, melena, hematochezia : No dysuria, hematuria, increased urinary frequency, decreased urinary output MSK: No myalgia, back pain Neuro: No headaches, weakness, paresthesias, confusion. +lightheadedness Skin: No rashes or lesions [facility] Medical History Sleep apnea Hiatal hernia Colon cancer screening Osteopenia Pubic bone fracture Hypertension Anxiety Pancreatic lesion Obstructive sleep apnea Peripheral vascular disease GERD (gastroesophageal reflux disease) Obesity (BMI 30-39.9) Glaucoma Osteoarthritis Thyroid nodule Hypercholesterolemia Recurrent pulmonary embolism Family History Father Diabetes CHF (congestive heart failure) Hypertension CVD (cardiovascular disease) Mother Dementia Stroke Hypertension Son In good health Other Mental health disorder Surgical History H/O colonoscopy History of left knee surgery History of eye surgery History of tonsillectomy History of cataract extraction Social History Housing: House Alcohol intake: never Patient Tobacco Use Status: Never used Tobacco Smoked in Last 30 Days: No e-Cigarette/Vaping Use: Never Used Second Hand Smoke Exposure: No Use of substances other than those prescribed or required for medical reasons: No Advance Directives: No Advance Directives Information Provided: Yes Do you have a plan to hurt others: No Plan service: No Current occupational status: retired Cognitive needs: No Hearing needs: No Vision needs: Yes Meds Allergies Allergy/AdvReac Type Severity Reaction Status Date / Time lisinopril [LISINOPRIL] Allergy Severe ANGIOEDEMA Verified 03/22/24 15:02 latex [LATEX] Allergy Mild RASH Verified 03/22/24 15:02 Home Medications ?Medication ?Instructions ?Recorded ?Confirmed ?Last Taken ?Type tafluprost (PF) 0.0015 % eye drops 1 drp ophthalmic (eye) BEDTIME 06/29/20 02/15/24 Unknown History in a dropperette (Zioptan (PF)) cholecalciferol (vitamin D3) 25 50 mcg PO DAILY 10/08/21 02/15/24 Unknown History mcg (1,000 unit) capsule CPAP (CPAP Machine/Device) 10/10/22 10/23/23 Unknown History calcium carbonate 500 mg PO DAILY 02/15/24 02/15/24 Unknown History dorzolamide 22.3 mg-timolol 6.8 1 drp ophthalmic (eye) BID 02/15/24 02/15/24 Unknown History mg/mL eye drops ketoconazole 2 % shampoo topical 03/22/24 Unknown History timolol maleate 0.5 % eye drops 1 drp ophthalmic (eye) BID 03/22/24 Unknown History Physical Exam 2 Vital Signs and Narrative: Vital Signs: Last Vital Signs Temp 97.7 F 03/22/24 17:03 Pulse 69 03/22/24 17:03 Resp 19 03/22/24 17:03 BP 179/87 H 03/22/24 17:03 Pulse Ox 94 03/22/24 17:03 O2 Del Method Room Air 03/22/24 17:03 BMI result Body Mass Index 35.4 Constitutional - Awake and Alert, No apparent distress Eyes - PERRLA, EOMI Cardiovascular - S1S2, RRR, No edema Respiratory - Normal lung expansion, Normal respiratory effort, No respiratory distress, CTA bilaterally Gastrointestinal - NT / ND; +BS; No rebound or guarding Extremities - no calf tenderness bilaterally, no swelling Skin - Warm/Dry Neurological - Alert & oriented x2, disoriented to time (reports it is 2012), CN II-XII in tact, 5/5 strength BUE and BLE, normal finger to nose and heel to chapman testing Psychological - Appropriate affect Results Labs 03/22/24 15:28 03/22/24 15:28 Labs: Laboratory Results - last 24 hr 03/22/24 03/22/24 03/22/24 15:05 15:28 15:39 MCV 92.3 MCH 29.8 MCHC 32.3 RDW 14.7 Plt Count 222 MPV 10.7 Immature Gran % (Auto) 0.3 Neut % (Auto) 75.5 H Lymph % (Auto) 14.5 L Ocean % (Auto) 5.6 Eos % (Auto) 3.7 Baso % (Auto) 0.4 Lymph # (Auto) 1.6 Ocean # (Auto) 0.6 Eos # (Auto) 0.4 Baso # (Auto) 0.1 Abs Immat Gran (auto) 0.03 Absolute Neuts (auto) 8.5 H Absolute Nucleated RBC 0.000 Nucleated RBC % (auto) 0.0 PT 13.0 INR 1.1 APTT 39.5 H Anion Gap 12 Estim Creat Clear Calc 71.4 Estimated GFR > 60 POC Glucose 86 Random Glucose 99 Calcium 10.9 H D Troponin I High Sens 197.3 H* Triglycerides 83 Cholesterol 201 H LDL Cholesterol, Calc 130 H HDL Cholesterol 55 Urine Color Yellow Urine Appearance Clear Urine pH 8.5 Ur Specific [place] 1.015 Urine Protein Negative Urine Glucose (UA) Negative Urine Ketones Trace Urine Blood Negative Urine Nitrite Negative Ur Leukocyte Esterase Trace H Urine RBC 0-2 Urine WBC 0-5 Ur Squamous Epith Cells 0-2 Urine Bacteria None Seen Hyaline Casts 0-2 03/22/24 16:59 MCV MCH MCHC RDW Plt Count MPV Immature Gran % (Auto) Neut % (Auto) Lymph % (Auto) Ocean % (Auto) Eos % (Auto) Baso % (Auto) Lymph # (Auto) Ocean # (Auto) Eos # (Auto) Baso # (Auto) Abs Immat Gran (auto) Absolute Neuts (auto) Absolute Nucleated RBC Nucleated RBC % (auto) PT INR APTT Anion Gap Estim Creat Clear Calc Estimated GFR POC Glucose Random Glucose Calcium Troponin I High Sens 307.3 H* D Triglycerides Cholesterol LDL Cholesterol, Calc HDL Cholesterol Urine Color Urine Appearance Urine pH Ur Specific [place] Urine Protein Urine Glucose (UA) Urine Ketones Urine Blood Urine Nitrite Ur Leukocyte Esterase Urine RBC Urine WBC Ur Squamous Epith Cells Urine Bacteria Hyaline Casts Imaging Radiologist's Impressions: Impressions Head CT 03/22/24 14:43 IMPRESSION: There are scattered chronic small vessel ischemic changes within the periventricular white matter. No evidence of acute territorial infarct or hemorrhage. No abnormal intracranial mass or enhancement. The CT angiogram reveals no stenosis of the cervical carotid or vertebral arteries. No intracranial large vessel occlusion. Of note there is an od odontoideum versus a chronic ununited type II odontoid process fracture. There is some thickening of the retrodental soft tissues causing mild AP narrowing of the canal the level of C1-C2. Dedicated flexion-extension radiographs of the cervical spine can be obtained to assess for the presence of segmental instability. This critical result was discussed with Zacarias Loja at 4:13 PM on 03/22/2024 and it was ascertained that the content and urgency of the report was understood at the time of direct communication. Head/Neck CTA 03/22/24 14:53 IMPRESSION: There are scattered chronic small vessel ischemic changes within the periventricular white matter. No evidence of acute territorial infarct or hemorrhage. No abnormal intracranial mass or enhancement. The CT angiogram reveals no stenosis of the cervical carotid or vertebral arteries. No intracranial large vessel occlusion. Of note there is an od odontoideum versus a chronic ununited type II odontoid process fracture. There is some thickening of the retrodental soft tissues causing mild AP narrowing of the canal the level of C1-C2. Dedicated flexion-extension radiographs of the cervical spine can be obtained to assess for the presence of segmental instability. This critical result was discussed with Zacarias Loja at 4:13 PM on 03/22/2024 and it was ascertained that the content and urgency of the report was understood at the time of direct communication. Chest X-Ray 03/22/24 15:04 IMPRESSION: Bilateral interstitial opacities may reflect pneumonia . Follow-up PA and lateral would be helpful. Assessment and Plan (1) NSTEMI (non-ST elevated myocardial infarction): Status: Acute Plan 73 year old female with history of hld, recurrent PE on eliquis, htn, osteoporosis, gerd, pvd, theresa on cpap admitted for further management of NSTEMI #Acute NSTEMI -initial trop 197, repeat 307. EKG without acute st/t wave abnormality -Hold eliquis, administer heparin drip no initial bolus. Discussed with cardiology -give 325mg asa. Continue 81mg daily -nitrates per cardiology -LDL 131, atorvastatin -monitor on tele -cardiac diet -echo -cardiology consult -serial trops until peak #Word finding difficulty/confusion -no word finding difficulty or focal neuro deficits on exam. Disoriented to time -?due to hypoperfusion due to above -lower suspicion for CVA. Neurology consult. Hold on MR for now -passed swallow eval. ASA, statin, neuro checks -monitor on tele #Abn cxr- possible infiltrates -no fevers, chills, respiratory symptoms. Doubt pneumonia, hold on further abx #Abn ct neck -ct shows Possible os odontoideum vs chronic ununited type II odontoid process fracture -no neck pain, myelopathy. Chekc flexion/extension xr cervical spine -outpt follow up with neurosurgery #HTN -nitrates as above -hold hctz #PE -hold eliquis. initiate heparin as above #THERESA -cpap dvt prophylaxis- heparin full code pt requires inpt stay at least 2 midnights due to nstemi requiring heparin drip, close cardiac monitoring, echo, and expert consultation with probable transfer to tertiary facility for cardiac catheterization Quality Stroke Does the patient have a stroke diagnosis?: No VTE Prior VTE?: No VTE Risk Level:: Medical - moderate - high VTE Device Contraindication: Treatment Not Indicated VTE Drug Contraindication: N/A - Med Ordered
--- OUTSIDE RECORDS SUMMARY | 2024-03-22 18:04 | XMS_ITS | Patient Health Record ---
Author Organization [facility] Address [address] [place] [address] Care Team Providers Care Formwork Carpenter Name Role Phone Danika Pino MD Primary Care Provider Raul Mckeon [phone] ALLERGIES Allergen (clinical drug ingredient) Drug/Non Drug Allergy documented on EMR Reaction Allergy Type Onset Date Status lisinopril Lisinopril Unknown Drug Allergy Activ e REASON FOR REFERRAL No Information MEDICATIONS Medication SIG (Take, Route, Frequency, Duration) Notes Start Date End Date Status Zioptan 0.0015% Acti ve Dorzolamide HCl-Timolol Mal Active Calcium Active Vitamin D Act quan Timolol Maleate 0.5 % 1 drop into affect ed eye Ophthalmic Once a day Active hydroCHLOROthiazide 25 MG 1 tablet in th e morning Orally Once a day for 30 day(s) Active Eliquis 5 MG 1 tablet Orally Twic e a day for 30 day(s) Active Amlodipine & Diet Manage Pro d 5mg Active Omeprazole 20 MG 1 capsule 30 minutes before morning meal Orally Once a day for 30 day(s) Active IMMUNIZATIONS Vaccine Route Administration Date Status Comme nts Influenza Unknown 06/30/2023 Administered SOCIAL HISTORY Sex Assigned At : Social History Observation Description Sex Assigned At Unknown PROBLEMS Problem Type ICD Code Onset Dates Problem Status W/U Status Risk SNOMED Code Notes Problem Diverticulosis of large intestine without perforation or abscess without bleeding (K57.30) Active confirmed Diverticul ar disease of colon (170776989) Problem Positive colorectal cancer screening using Cologuard test (R19.5) Active confirmed Abnormal feces (666086615) VITAL SIGNS Temperature 96.8 degrees Fahrenheit 01/06/2024 Blood pressure diastolic 00 mm Hg 01/06/2024 Height 63 in 01/06/2024 Blood pressure systolic 000 mm Hg 01/06/2024 Weight 199 lb 6 oz lbs 01/06/2024 BMI 35.31 kg/m2 01/06/2024 Encounters Encounter Location Date Provider Diagnosis [facility] [address] [place], [place] [id number] 02/17/2024 Raul Napoles Encounter for screen ing colonoscopy Z12.11 ; Heme + stool R19.5 ; Diverticulosis of large intestine without perforation or abscess without bleeding K57.30 and Other hemorrhoids K64.8 [facility] [address] [place] [address] 02/19/2024 Raul Napoles [facility] [address] [place] [id number] 01/06/2024 Raul Napoles Positive colorectal cancer screening using Cologuard test R19.5 ASSESSMENTS Encounter Date Diagnosis Assessment Notes Treatment Notes Treatment Clinical Notes 02/17/2024 Encounter for screening colonoscopy (ICD-10 - Z12.11) 02/17/2024 Heme + stool (ICD-10 - R19.5) 01/06/2024 Positive colorectal cancer screening using Cologuard test (ICD-10 - R19.5) Stop the Eliquis for 3 days before the colonoscopy and check with Dr. Pino about possibly needing Lovenox injections while off the Eliquis. Do not use the Hydrochlorothiaizide the day before nor on the day of the colonoscopy. 02/17/2024 Diverticulosis of large intestine without perforation or abscess without bleeding (ICD-10 - K57.30) 02/17/2024 Other hemorrhoids (ICD-10 - K64.8) PLAN OF TREATMENT Future Test Test Name Order Date COLONOSCOPY 10/07/2013 COLONOSCOPY 01/06/2024 Insurance Providers Payer Name Payer Address Payer Phone Subscriber Number Group Number Insured Name Patient Relationship to Insured Coverage Start Date Coverage End Date [facility] [address] [place] [address] [phone] [id number] TANIA DE LA GARZA Self - patient is the insured MEDICAL (GENERAL) HISTORY Medical History History ICD Code Colonoscopy 02-19-2005--neg except divert iculosis and internal hemorrhoids Hypertension Denies CT,DM,CVA,Lung disease,renal dise ase Glaucoma GERD-upper GI series in 2021 revealed a small to moderate-sized hiatal hernia with reflux Pulmonary embolism 2014 Negative colonoscopy in 11/2013 Sleep apnea-uses CPAP + Cologuard test 11/04/2023 Surgical History Surgery Date(Month/Year) 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 yuli lara issue clean up 08/05/2018 cateract surgery bilateral 01/11/15-01/06
--- NOTE | 2024-03-22 18:21 | PC.NURSE ---
patient placed on stretcher with bed scale, pt updated weight 94.3kg, pharmacy updated
--- NOTE | 2024-03-22 18:44 | PHA.MEDREC ---
Pharmacy Consult ? Medication Reconciliation Pharmacy has completed the medication reconciliation. Patient was very confused on what she takes. Patient was only able to confirm Apixaban 5 mg bid. Spoke to Constance and he wasn't very helpful. He was only able to confirm Apixaban and Hydroclorothiazide 25 mg daily and Tafluprost 1 drp in both eyes at bedtime. when asked about any other eye drops or OTC medication He kept saying you will have to ask my
[2024-03-22] MEDS: Heparin Sodium,Porcine/1/2NS 25,000 UNIT/250 ML IV.SOLN 10 UNIT IVCONT (19:21)
[2024-03-22] MEDS: Aspirin 325 MG TABLET PO (19:22)
[2024-03-22] MEDS: Nitroglycerin 2 % Oint 1 GM Packet 0.5 INCH TRANSDERMA (19:26)
[2024-03-22 19:28] LABS: Troponin-I High Sensitivity 197.3 ng/L (<3.5-17.0)
--- NOTE | 2024-03-22 20:16 | PC.NURSE ---
late entry. assumed care of pt 1914. per no heparin bolus as pt on eliquis. heparin drip started per nov via 18g IV L. AC. pt reports chest tightness/pain across entire chest, per PA administer po aspirin and nitro paste prn. bp elevated, nitro paste placed to R. upper chest. bp improving, pain improving. pt is axox3 speaking full clear sentences and following commands appropriately. neuros intact. nsr on monitor. pt tolerated po intake and previously passed swallow eval. pt reports she did not want to eat dinner and had juice/water, refuses other food/snacks at this time. purewick in place pt urinating clear yellow urine. pt helped to reposition hob elevated per aspiration precautions. call liriano within reach.
--- NOTE | 2024-03-22 22:34 | PC.NURSE ---
pt reports 3/10 BOLAND, neuros intact. pt denies the need for prn tylenol/other meds. pt requested ice pack and lights off. pt resting comfortably at this time call liriano within reach.
[2024-03-23] VITALS (9 sets, daily range): BP systolic 132–166; BP diastolic 66–90; PULSE 58–86; RESP 18; TEMP 36.6–37.4; O2SAT 92–98; BMI 34.6
--- NOTE | 2024-03-23 | ECG_ITS ---
Test Reason : chest pain Blood Pressure : / mmHG Vent. Rate : 068 BPM Atrial Rate : 068 BPM P-R Int : 176 ms QRS Dur : 094 ms QT Int : 460 ms P-R-T Axes : 032 009 018 degrees QTc Int : 489 ms Normal sinus rhythm Normal ECG When compared with ECG of 23-MAR-2024 02:20, No significant change was found Referred By: Cecily Meza Electronically Signed By:LISETTE BASHIR MD
[2024-03-23 00:06] LABS: Troponin-I High Sensitivity 649.7 ng/L (<3.5-17.0)
--- NOTE | 2024-03-23 00:31 | PC.NURSE ---
pt transported to 4th floor and bedside handover to Ping ELLISON. heparin infusion rate confirmed at bedside with RN. pt in nad at time of transfer.
[2024-03-23] MEDS: Acetaminophen 325 MG TABLET 650 MG PO ×2 (01:55→11:04)
[2024-03-23 02:06] LABS: PTT Heparin Drip 75.8 SEC (53-77.9)
--- NOTE | 2024-03-23 02:38 | PC.NURSE ---
Addendum entered by Ping Sousa RN 03/23/24 06:57: Critical tigertext to repairer typewriter and MD from lab this morning: trop 559.7. Pt denies chest pain or other symptoms at this time. No distress observed, resting in bed. No new orders. Oncoming RN made aware during report Original Note: Patient admitted to s4 from ED, arrived to unit at 00:30. Patient admitted with chest pain, increasing troponins, and word finding difficulty. A&Ox4. On q2h neuro assessments until 06:00 then q4h per order. Speech is clear though patient still has some mild word finding difficulty. Neuros otherwise intact. Duplicate neuro consult orders in place on arrival, one stat and one routine. Attempts made to contact neuro for consult though call was not returned to unit. Covering Dr. Meza notified of this and discussed imaging done in ED; per Tigertext communication, MD states neurology will see the patient later this morning. Pt co mild 3/10 chest pain and 5/10 headache in forehead/frontal region; nitro paste in place to right anterior upper chest on arrival was not yet due for reassessment. Pt requesting tylenol for headache, however, pt had an episode of vomiting small amount thin bilious gastric contents prior to administering. MD notified of chest pain and vomiting with order for zofran, given with +effect and able to give tylenol as initially requested by patient. Ordered cpap deferred due to vomiting. Aspiration precautions in place. EKG obtained for reassessment showing NSR 80's. Trending trops q6h as ordered, back at 649.7 just prior to arrival to unit. Pt on heparin gtt infusing as per NOV, verified in bedside handoff with ED RN. PTT back therapeutic at 01:45; next PTT due at 07:45. No sign of bleeding. Pt educated on bleeding risk and to notify staff for any bleeding or bruising. Pt reported chest pain improved to 2/10, which she states is tolerable when reassessed on nitro paste removal per NOV. BP reassessment showed improvement to 140's/90's from 160's/80's on arrival. Echo ordered and pending. Cardiology consult ordered by MD. Patient resting in bed appearing comfortable in no apparent distress. Breathing is even and unlabored without distress. Call liriano within reach and educated on use. Bed alarm on and safety measures in place.
[2024-03-23 06:13] LABS: MANUAL DIFF FLAG NO
[2024-03-23 06:24] LABS: Basophils Percent Auto 0.3 % (0-2); Eosinophils Absolute Auto 0.1 X10*3/uL (0.0-0.4); Eosinophils Percent Auto 0.4 % (0-4); Hematocrit 42.3 % (37.0-47.0); Hemoglobin 13.6 g/dl (12.0-16.0); Imm Gran Abs Auto 0.05 X10*3/uL (0.00-0.03); Imm Gran Pct Auto 0.4 % (0.0-0.4); Lymphocytes Absolute Auto 1.3 X10*3/uL (1.2-4.9); Lymphocytes Percent Auto 10.4 % (20-40); Mean Corpuscular HGB Conc 32.2 g/dl (31.0-35.0); Mean Corpuscular Hemoglobin 29.2 pg (27.0-33.0); Mean Corpuscular Volume 90.8 fL (80.0-98.0); Mean Platelet Volume 11.1 fL (9.4-12.3); Monocytes Absolute Auto 0.7 X10*3/uL (0.1-1.2); Monocytes Percent Auto 5.2 % (2-11); Neutrophils Absolute Auto 10.5 x10*3/uL (2.0-8.3); Neutrophils Percent Auto 83.3 % (45-73); Platelet Count 206 X10*3/uL (160-400); Red Blood Count 4.66 X10*6/uL (4.20-5.50); Red Cell Distribution Width 14.8 % (11.0-16.0); White Blood Count 12.6 X10*3/uL (4.8-10.8)
[2024-03-23 06:41] LABS: Anion Gap 12 (12-20); Blood Urea Nitrogen 13 mg/dL (9-16); Carbon Dioxide 26 mmol/L (22-29); Chloride 106 mmol/L (96-108); Creatinine Clr Calc Pharmacy 72.5; Estimated Glomerular Filt Rate > 60; Glucose Random 107 mg/dL (60-115); Potassium 3.2 mmol/L (3.3-5.1); Sodium 141 mmol/L (135-145)
[2024-03-23 06:46] LABS: Troponin-I High Sensitivity 559.7 ng/L (<3.5-17.0)
--- NOTE | 2024-03-23 07:00 | CA_ITS ---
Transthoracic Echocardiogram Patient (Last, First, Middle): Lee Ann Lazar C Gender: Female Date of : 1950 Age: 73 Procedure Date: 03/23/2024 Procedure Type: Transthoracic Echocardiogram Location: [facility] Height: 160.02 cm Weight: 88.45 kg BSA: 1.91 m2 Heart Rate: bpm BP: 136 / 83 mmHg Byproducts Maker: ALLIE Referring MD: Lara MARCUS Utility Worker Film Processing: Tej Shelton MD Symptoms: cva, nstemi Study Quality: Good ECG Rhythm: Sinus Conclusions: - 1. Normal LV ejection fraction of 60 65% with mild LVH with impaired relaxation filling pattern 2. Normal cardiac valvular Dopplers 3. Normal RV systolic pressure 4. Mildly dilated ascending aorta at 3.9 cm 5. No gross pericardial effusion Findings Left Ventricle Normal left ventricular size and systolic function. There is mildly increased left ventricular wall thickness. The visually estimated ejection fraction is between 60-65%. Spectral Doppler is indicative of an impaired relaxation filling pattern. E/E prime ratio is between 8 and 15 consistent with indeterminate filling pressures. Right Ventricle Normal right ventricular cavity size and systolic function. Atria The left atrium is likely dilated. There is lipomatous hypertrophy of the interatrial septum. There is no evidence of interatrial shunt. The right atrium is normal in size. Aortic Valve Normal aortic valve structure and function. There is no aortic valve stenosis. There is no aortic valve regurgitation. Mitral Valve Normal mitral valve structure and function. There is no mitral valve regurgitation. There is no mitral valve stenosis. Pulmonic Valve The pulmonic valve is likely normal. There is trace pulmonic valve regurgitation. Tricuspid Valve Normal tricuspid valve structure. There is trace tricuspid valve regurgitation. The right ventricular systolic pressure is normal. The right ventricular systolic pressure is 21 mmHg. Normal right atrial pressure. There is no evidence of pulmonary hypertension. Great Vessels The pulmonary artery was not well visualized. There is mild dilatation of the ascending aorta measuring 3.90 cm. Venous The inferior vena cava is normal in size and collapses greater than 50% with inspiration. Pericardium/Pleural There is no evidence of pericardial effusion. Prior Study Comparison No prior study available for comparison. Measurements 2D Linear Measurements IVSd: 1.24 0.6-0.9/0.6-1.0 cm LVIDd: 4.46 3.9-5.3/4.2-5.9 cm LVIDd Index: 2.34 2.4-3.2/2.2-3.1 cm/m2 LVIDs: 2.82 2.0-3.6 cm LVPWd: 1.26 0.7-1.1 cm Ao Root: 3.30 2.1-3.5 cm LA Diam: 3.80 2.7-3.8/3.0-4.0 cm LAIDs Index: 1.99 1.5-2.3 cm/m2 LV Mass: 258.37 67-162/88-224 g LV Mass Index: 135.27 43-95/49-115 g/m2 LVOT Diam: 2.00 3.0+(-)1.3 cm Mitral Valve MV Pk E: 0.62 MV PK A: 0.89 MV Decel Time: 212.00 E/A: 0.70 E'Lateral: 5.77 E'Medial: 4.24 E/E' Med: 14.70 E/E' Lat: 10.80 PHT: 62.00 MVA PHT: 3.55 Decel [place]: 2.95 Aortic Valve AoV Pk Philippe: 1.63 AoV Mn Philippe: 0.99 AoV VTI: 0.35 AoV Pk Grad: 11.00 Aov Mn Grad: 5.00 STACY Cont.VTI: 2.67 LVOT LVOT Pk Philippe: 1.22 LVOT Mn Philippe: 0.74 LVOT VTI: 0.30 LVOT Pk Grad: 6.00 LVOT Mn Grad: 3.00 LVOT Diam: 2.00 LVOT Area: 3.14 Diastolic Function MV Pk E: 0.62 MV Pk A: 0.89 E/A: 0.70 E'Medial: 4.24 E/E' Med: 14.70 E' Laterial: 5.77 E/E' Lat: 10.80 Tricuspid Valve TR Pk Philippe: 2.12 TR Pk Grad: 18.00 RA Press: 3.00 RVSP: 21.00 Great Vessels Aorta Ao Root-2D: 3.30 2.0-3.7 cm Ao Asc: 3.90 2.1-3.4 cm Pulmonary Valve PV Pk Philippe: 1.04 Peak PV Grad: 4.00 Updated in Other Vendor System with Status of Final Tej Shelton MD electronically signed on 03/23/2024 12:18:44 PM with status of Final
[2024-03-23 08:09] LABS: PTT Heparin Drip 96.2 SEC (53-77.9)
[2024-03-23] MEDS: Aspirin Enteric Coated 81 MG TABLET.DR PO (08:10)
[2024-03-23] MEDS: Atorvastatin Calcium 80 MG TABLET PO (08:10)
[2024-03-23] MEDS: 0.9 % Sodium Chloride Flush 3 ML SYRINGE IVFLUSH (08:11)
[2024-03-23] MEDS: timoloL maleate 0.5 % Oph Sol 5 ML DRBTL 1 DROP EYE-BOTH ×2 (08:11→20:30)
--- NOTE | 2024-03-23 10:20 | P.CONCA_ITS ---
History of Present Illness History of Present Illness Date of Service: 03/23/24 Requesting physician: Linh Montaño Consult reason: other (NSTEMI) Chief complaint: cva, elevated trop Narrative: I was consulted to see Lee Ann in cardiology consultation today for elevated troponins consistent with NSTEMI. She is a 73-year-old female who has some cognitive dysfunction, prior history of recurrent PE on chronic anticoagulation with Eliquis, acid reflux disease, hyperlipidemia, hypertension. Patient was usual state of health yesterday. 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 She went to the car dealership yesterday and while sitting and resting was not really anxious or stressed out. She then went to the bathroom and when she came back she got across the chest discomfort feeling like pressure and she told the desk person to call paramedics to bring her to the emergency room as she thought she was having heart attack. When the paramedics came there she said she might have missed up on the date year and they thought she was having some neurologic symptoms and brought her to the emergency room. She does not recall the time from the dealership to the hospital ride. However she remembers having chest pressure throughout. When she came to the Emergency was still having chest pressure. Her initial troponin was elevated and subsequent troponin was further elevated consistent with myocardial injury. EKG did not show any acute ischemic changes. Due to her neurologic symptoms she underwent neurologic imaging and there was evidence of chronic ischemic changes but without any acute intracranial lesion suggestive of stroke or hemorrhage. She did not have any focal neurologic findings. She has been admitted and was started on IV heparin without bolus and given aspirin and statins. She also started on nitro paste. She says she has some headache which started yesterday with the chest pressure symptoms and persistent. She is not having any further chest pressure. No other recent symptoms. She does not recall having any prior cardiovascular issues. Review of Systems 2 Constitutional: Constitutional: Reports no additional constitutional complaints Eyes: Eyes: Reports no additional eye complaints Cardiovascular: Cardiovascular: Reports chest pain at rest, Denies syncope, Denies leg edema, Denies lightheadedness, Denies Loss of Consciousness, Denies palpitations and Denies dyspnea Respiratory: Respiratory: Reports no additional respiratory complaints and Denies dyspnea Gastrointestinal: Gastrointestinal: Reports no additional gastrointestinal complaints Musculoskeletal: Musculoskeletal: Reports no additional musculoskeletal complaints Neurologic: Denies syncope and Reports memory loss Psychiatric: Psychiatric: Reports no additional psychiatric complaints and Reports memory loss Endocrine: Endocrine: Denies palpitations Allergic/Immunologic: Allergic/Immunologic: Reports no additional allergic/immunologic complaints [facility] Past Medical History Medical History Sleep apnea Hiatal hernia Colon cancer screening Osteopenia Pubic bone fracture Hypertension Anxiety Pancreatic lesion Obstructive sleep apnea Peripheral vascular disease GERD (gastroesophageal reflux disease) Obesity (BMI 30-39.9) Glaucoma Osteoarthritis Thyroid nodule Hypercholesterolemia Recurrent pulmonary embolism Family History Family History Father Diabetes CHF (congestive heart failure) Hypertension CVD (cardiovascular disease) Mother Dementia Stroke Hypertension Son In good health Other Mental health disorder Surgical History Surgical History H/O colonoscopy History of left knee surgery History of eye surgery History of tonsillectomy History of cataract extraction Social History Social History Household Members: Spouse Housing: House Do you presently have visiting nurse or other home services: No Alcohol intake: never Patient Tobacco Use Status: Never used Tobacco e-Cigarette/Vaping Use: Never Used Second Hand Smoke Exposure: No service: No Current occupational status: retired Cognitive needs: No Hearing needs: No Vision needs: Yes Meds Allergies Allergy/AdvReac Type Severity Reaction Status Date / Time lisinopril [LISINOPRIL] Allergy Severe ANGIOEDEMA Verified 03/22/24 15:02 latex [LATEX] Allergy Mild RASH Verified 03/22/24 15:02 Active Medications: Current Medications Acetaminophen (Acetaminophen 325 Mg Tablet) 650 mg PO Q6H PRN PRN Reason: Pain, Mild (Pain Scale 1-3), fever or headache Last Admin: 03/23/24 01:55 Dose: 650 mg Amlodipine Besylate (Amlodipine Besylate 2.5 Mg Tablet) 2.5 mg PO DAILY [facility]; Protocol Aspirin (Aspirin Enteric Coated 81 Mg Tablet.) 81 mg PO DAILY [place] Last Admin: 03/23/24 08:10 Dose: 81 mg Atorvastatin Calcium (Atorvastatin Calcium 80 Mg Tablet) 80 mg PO DAILY [facility] Last Admin: 03/23/24 08:10 Dose: 80 mg Calcium Carbonate (Calcium Carbonate 750 Mg Tab.Chew) 750 mg PO Q4H PRN PRN Reason: Heartburn Heparin Sodium (Porcine) (Heparin Sodium,Porcine 5,000 Unit/Ml Vial) 3,800 unit 40 unit/kg (3800 unit) IVPUSH PROTOCOL BOLUS PRN; Protocol PRN Reason: 40 unit/kg - Heparin Protocol Heparin Sodium (Porcine) (Heparin Sodium,Porcine 5,000 Unit/Ml Vial) 7,500 unit 80 unit/kg (7500 unit) IVPUSH PROTOCOL BOLUS PRN; Protocol PRN Reason: 80 unit/kg - Heparin Protocol Heparin Sodium/Sodium Chloride (Heparin Sodium,Porcine/1/2ns) 25,000 unit in 250 mls @ 0 mls/hr IVCONT .Q0M [facility]; Protocol Last Titration: 03/23/24 09:42 Dose: 7.6 units/kg/hr, 7.17 mls/hr Magnesium Hydroxide (Milk Of Magnesia 30 Ml Oral.Susp) 30 ml PO DAILY PRN PRN Reason: Constipation Melatonin (Melatonin 3 Mg Tablet) 6 mg PO BEDTIME PRN PRN Reason: Insomnia Nitroglycerin (Nitroglycerin 2 % Oint 1 Gm Packet) 0.5 inch TRANSDERMA RQ6H WHILE AWAKE PRN PRN Reason: Chest Pain Last Admin: 03/22/24 19:26 Dose: 0.5 inch Non-Formulary Medication (Tafluprost (Pf) [Zioptan (Pf)]) 1 drop EYE-BOTH BEDTIME [facility] Ondansetron HCl (Ondansetron Hcl 4 Mg/2 Ml Vial) 4 mg IVPUSH Q4H PRN PRN Reason: Nausea and Vomiting Sodium Chloride (0.9 % Sodium Chloride Flush 3 Ml Syringe) 3 ml IVFLUSH QSHIFT [facility] Last Admin: 03/23/24 08:11 Dose: 3 ml Timolol Maleate (Timolol Maleate 0.5 % Oph [place] 5 Ml Drbtl) 1 drop EYE-BOTH BID [facility] Last Admin: 03/23/24 08:11 Dose: 1 drop Home Medications ?Medication ?Instructions ?Recorded ?Confirmed ?Last Taken ?Type tafluprost (PF) 0.0015 % eye drops 1 drp ophthalmic (eye) BEDTIME 06/29/20 03/22/24 Unknown History in a dropperette (Zioptan (PF)) CPAP (CPAP Machine/Device) 10/10/22 10/23/23 Unknown History timolol maleate 0.5 % eye drops 1 drp ophthalmic (eye) BID 03/22/24 03/22/24 Unknown History Physical Exam 2 Vital Signs: Vital Signs: Last Vital Signs Temp 97.9 F 03/23/24 07:25 Pulse 63 03/23/24 08:39 Resp 18 03/23/24 07:25 BP 141/76 H 03/23/24 08:39 Pulse Ox 93 03/23/24 08:39 O2 Del Method Room Air 03/23/24 07:25 BMI result Body Mass Index 34.6 Const: General: cooperative, comfortable, no acute distress, alert and awake Nutritional Appearance: obese Orientation/consciousness: patient oriented x3 Limitations: no limitations HEENT: Head: Yes normocephalic and Yes atraumatic Neck: Neck: Yes trachea midline, Yes supple and Yes no JVD Resp: Effort & Inspection: normal respiratory effort Auscultation: clear to auscultation bilaterally Cardio: Jugular venous distension: no JVD Palpation: normal PMI Rate: r egular rate Rhythm: regular rhythm Heart sounds: S1 normal heart sound present, S2 normal heart sound present, no click, no gallops, no murmurs and no rubs GI: Auscultation: normal bowel sounds Skin: General skin exam: no rashes or lesions noted Neuro: General: patient oriented x3 and no focal motor deficits Extrem: General: Yes no clubbing, cyanosis or edema Psych: Appearance: grossly normal Objective Labs and Meds 03/23/24 05:53 03/23/24 05:53 Lab results: Laboratory Results - last 24 hr 03/22/24 03/22/24 03/22/24 15:05 15:28 15:39 WBC 11.3 H RBC 4.96 Hgb 14.8 Hct 45.8 MCV 92.3 MCH 29.8 MCHC 32.3 RDW 14.7 Plt Count 222 MPV 10.7 Immature Gran % (Auto) 0.3 Neut % (Auto) 75.5 H Lymph % (Auto) 14.5 L [place] % (Auto) 5.6 Eos % (Auto) 3.7 Baso % (Auto) 0.4 Lymph # (Auto) 1.6 [place] # (Auto) 0.6 Eos # (Auto) 0.4 Baso # (Auto) 0.1 Abs Immat Gran (auto) 0.03 Absolute Neuts (auto) 8.5 H Absolute Nucleated RBC 0.000 Nucleated RBC % (auto) 0.0 PT 13.0 INR 1.1 APTT 39.5 H aPTT Heparin Protocol Sodium 142 Potassium 4.3 Chloride 103 Carbon Dioxide 31 H Anion Gap 12 BUN 16 Creatinine 0.75 Estim Creat Clear Calc 71.4 Estimated GFR > 60 POC Glucose 86 Random Glucose 99 Calcium 10.9 H D Troponin I High Sens 197.3 H* Triglycerides 83 Cholesterol 201 H LDL Cholesterol, Calc 130 H HDL Cholesterol 55 Urine Color Yellow Urine Appearance Clear Urine pH 8.5 Ur Specific [place] 1.015 Urine Protein Negative Urine Glucose (UA) Negative Urine Ketones Trace Urine Blood Negative Urine Nitrite Negative Ur Leukocyte Esterase Trace H Urine RBC 0-2 Urine WBC 0-5 Ur Squamous Epith Cells 0-2 Urine Bacteria None Seen Hyaline Casts 0-2 03/22/24 03/22/24 03/23/24 16:59 23:33 01:45 WBC RBC Hgb Hct MCV MCH MCHC RDW Plt Count MPV Immature Gran % (Auto) Neut % (Auto) Lymph % (Auto) [place] % (Auto) Eos % (Auto) Baso % (Auto) Lymph # (Auto) [place] # (Auto) Eos # (Auto) Baso # (Auto) Abs Immat Gran (auto) Absolute Neuts (auto) Absolute Nucleated RBC Nucleated RBC % (auto) PT INR APTT aPTT Heparin Protocol 75.8 Sodium Potassium Chloride Carbon Dioxide Anion Gap BUN Creatinine Estim Creat Clear Calc Estimated GFR POC Glucose Random Glucose Calcium Troponin I High Sens 307.3 H* D 649.7 H* D Triglycerides Cholesterol LDL Cholesterol, Calc HDL Cholesterol Urine Color Urine Appearance Urine pH Ur Specific [place] Urine Protein Urine Glucose (UA) Urine Ketones Urine Blood Urine Nitrite Ur Leukocyte Esterase Urine RBC Urine WBC Ur Squamous Epith Cells Urine Bacteria Hyaline Casts 03/23/24 03/23/24 05:53 07:49 WBC 12.6 H RBC 4.66 Hgb 13.6 Hct 42.3 MCV 90.8 MCH 29.2 MCHC 32.2 RDW 14.8 Plt Count 206 MPV 11.1 Immature Gran % (Auto) 0.4 Neut % (Auto) 83.3 H Lymph % (Auto) 10.4 L [place] % (Auto) 5.2 Eos % (Auto) 0.4 Baso % (Auto) 0.3 Lymph # (Auto) 1.3 [place] # (Auto) 0.7 Eos # (Auto) 0.1 Baso # (Auto) 0.0 Abs Immat Gran (auto) 0.05 H Absolute Neuts (auto) 10.5 H Absolute Nucleated RBC 0.000 Nucleated RBC % (auto) 0.0 PT INR APTT aPTT Heparin Protocol 96.2 H D Sodium 141 Potassium 3.2 L D Chloride 106 Carbon Dioxide 26 Anion Gap 12 BUN 13 Creatinine 0.73 Estim Creat Clear Calc 72.5 Estimated GFR > 60 POC Glucose Random Glucose 107 Calcium 9.0 D Troponin I High Sens 559.7 H* Triglycerides Cholesterol LDL Cholesterol, Calc HDL Cholesterol Urine Color Urine Appearance Urine pH Ur Specific [place] Urine Protein Urine Glucose (UA) Urine Ketones Urine Blood Urine Nitrite Ur Leukocyte Esterase Urine RBC Urine WBC Ur Squamous Epith Cells Urine Bacteria Hyaline Casts EKG shows normal sinus rhythm with normal EKG Imaging Radiologist's impression: Impressions Head CT 03/22/24 14:43 IMPRESSION: There are scattered chronic small vessel ischemic changes within the periventricular white matter. No evidence of acute territorial infarct or hemorrhage. No abnormal intracranial mass or enhancement. The CT angiogram reveals no stenosis of the cervical carotid or vertebral arteries. No intracranial large vessel occlusion. Of note there is an od odontoideum versus a chronic ununited type II odontoid process fracture. There is some thickening of the retrodental soft tissues causing mild AP narrowing of the canal the level of C1-C2. Dedicated flexion-extension radiographs of the cervical spine can be obtained to assess for the presence of segmental instability. This critical result was discussed with Zacarias Loja at 4:13 PM on 03/22/2024 and it was ascertained that the content and urgency of the report was understood at the time of direct communication. Head/Neck CTA 03/22/24 14:53 IMPRESSION: There are scattered chronic small vessel ischemic changes within the periventricular white matter. No evidence of acute territorial infarct or hemorrhage. No abnormal intracranial mass or enhancement. The CT angiogram reveals no stenosis of the cervical carotid or vertebral arteries. No intracranial large vessel occlusion. Of note there is an od odontoideum versus a chronic ununited type II odontoid process fracture. There is some thickening of the retrodental soft tissues causing mild AP narrowing of the canal the level of C1-C2. Dedicated flexion-extension radiographs of the cervical spine can be obtained to assess for the presence of segmental instability. This critical result was discussed with Zacarias Loja at 4:13 PM on 03/22/2024 and it was ascertained that the content and urgency of the report was understood at the time of direct communication. Chest X-Ray 03/22/24 15:04 IMPRESSION: Bilateral interstitial opacities may reflect pneumonia . Follow-up PA and lateral would be helpful. Spine Flexion/Extension X-Ray 03/22/24 18:40 IMPRESSION: Unremarkable cervical spine exam. No visible acute fracture, dislocation or subluxation seen. No major change compared to previous study 03/28/2019. Assessment and Plan (1) NSTEMI (non-ST elevated myocardial infarction): Status: Acute Patient with symptoms and troponins consistent with acute coronary syndrome consistent with NSTEMI. She has multiple risk factors for the same. We discussed about management of NSTEMI. Most beneficial would be following invasive management with cardiac catheterization. This was discussed with her. We discussed the procedure in details including risk, benefits, alternatives. She understands. She is concerned about her social issues and her right back from [facility]. High eventually she agreed for the procedure. Will continue IV heparin. Continue aspirin, continue statins. Will start on amlodipine 2.5 mg daily. Hold off on beta-blockers due to low heart rate. Pathophysiology of acute coronary syndrome as most often being plaque rupture was discussed with her. Less likely that this induced stress-induced cardiomyopathy. Echocardiogram should be performed. Will follow with her as outpatient. Procedures Date of Service Date of Service: 03/23/24
--- NOTE | 2024-03-23 10:28 | P.DS_ITS ---
DS: Providers Provider Date of Service: 03/23/24 Date of admission: 03/22/24 17:59 Primary care physician: Danika Pino MD Consults: 03/22/24 14:37 Consult to Neurology Stat Consulting Provider: Juan Yen Reason for consultation: Stroke Protocol Has provider been notified: Yes 03/23/24 02:36 Consult to Cardiology Routine Consulting Provider: [facility] Reason for consultation: NSTEMI Has provider been notified: Yes DS: Diagnosis Discharge Diagnosis (1) NSTEMI (non-ST elevated myocardial infarction): Status: Acute DS: Summary Hospital Course Hospital Course: History of presenting illness: Date of Service: 03/22/24 Attending physician on admission: [facility] Chief Complaint: chest pain 73 year old female with history of hld, recurrent PE on eliquis, htn, osteoporosis, gerd, pvd, zak on cpap presented to the ED earlier today for evaluation of chest pain. Reports was a at car [employer] and ambulated to the bathroom and developed 7/10 nonradiating chest pain with associated lightheadedness. Per EMS, patient was also noted to have word finding difficulty and confusion en route. Since arrival, has been hypertensive to 180/99, vitals otherwise wnl. Has a leukocytosis 11.3. Renal function and electrolyte levels normal. Initial troponin 197, repeat 307. EKG shows NSR, no ST/T-wave abnormality. UA unremarkable. Chest x-ray shows bilateral interstitial opacities possibly reflecting pneumonia however patient has no upper respiratory symptoms or fevers. Head CT negative for acute intracranial abnormality but shows chronic white matter disease. CTA of the head/neck negative for large vessel occlusion or hemodynamically significant stenosis. Possible os odontoideum vs chronic ununited type II odontoid process fracture. In the ED given, iv ctx and doxy as well as NS. Hospital course: 73-year-old female patient with multiple medical issues including history of recurrent PE on Eliquis, hyperlipidemia, hypertension, osteoporosis, GERD, peripheral vascular disease, obstructive sleep apnea on CPAP, presented to [facility] due to symptoms of chest pain, associated with lightheadedness, as per EMS patient was noted to have word-finding difficulty and mild confusion however on arrival to ED patient noted to have no word-finding difficulty or weakness, she was hypertensive otherwise had normal vitals, EKG showed no acute ST or T-wave abnormality, chest x-ray showed bilateral interstitial opacities possibly reflecting pneumonia, however patient denied shortness of breath, cough or fever, therefore not treated with antibiotics, head CT negative for acute intracranial abnormality but showed chronic white matter disease, CTA head and neck negative for large vessel occlusion, but raised concern for possible odon toideum vs chronic ununited type II odontoid process fracture, therefore 6 view cervical spine x-rays were obtained including flexion and extension views the showed no visible acute fracture, dislocation or subluxation, patient admitted to [facility] with a diagnosis of non ST elevation [facility], home dose of Eliquis was held patient placed on IV heparin drip, Lipitor, aspirin, LDL 131, high sensitivity troponin bumped from 197>307>649>559.7 , repeat EKGs remains unchanged , tele monitor showed no arrhythmia, no evidence of congestive heart failure, no recurrent episodes of chest pain, patient evaluated by Cardiology and now being transferred to [facility] for cardiac catheterization, home dose of hydrochlorothiazide has been discontinued patient is recommended to continue CPAP. Time Attestation Discharge Coordination Time (in mins): 40 Quality: Safe Use of Opioids Does Pt have an Active Cancer Diagnosis on the Problem List?: No Quality: Stroke Does the patient have a stroke diagnosis?: No Physical Exam Vital Signs: Vital Signs: Last Vital Signs Temp 97.9 F 03/23/24 07:25 Pulse 63 03/23/24 08:39 Resp 18 03/23/24 07:25 BP 141/76 H 03/23/24 08:39 Pulse Ox 93 03/23/24 08:39 O2 Del Method Room Air 03/23/24 07:25 BMI result Body Mass Index 34.6 Const: Other: General resting comfortably in no acute distress. Anicteric sclera Neck no JVD. CVS regular rate rhythm, Respiratory lungs clear to auscultation, no respiratory distress, no wheeze, no rhonchi. Gastrointestinal abdomen soft, non tender, bowel sounds audible Extremities no edema. Neuro non focal , clear speech Skin no rash Psych appropriate affect DS: Data Data Completed and Pending Labs on day of discharge: Laboratory Results - last 24 hr 03/22/24 03/22/24 03/22/24 15:05 15:28 15:39 WBC 11.3 H RBC 4.96 Hgb 14.8 Hct 45.8 MCV 92.3 MCH 29.8 MCHC 32.3 RDW 14.7 Plt Count 222 MPV 10.7 Immature Gran % (Auto) 0.3 Neut % (Auto) 75.5 H Lymph % (Auto) 14.5 L Craig % (Auto) 5.6 Eos % (Auto) 3.7 Baso % (Auto) 0.4 Lymph # (Auto) 1.6 Craig # (Auto) 0.6 Eos # (Auto) 0.4 Baso # (Auto) 0.1 Abs Immat Gran (auto) 0.03 Absolute Neuts (auto) 8.5 H Absolute Nucleated RBC 0.000 Nucleated RBC % (auto) 0.0 PT 13.0 INR 1.1 APTT 39.5 H aPTT Heparin Protocol Sodium 142 Potassium 4.3 Chloride 103 Carbon Dioxide 31 H Anion Gap 12 BUN 16 Creatinine 0.75 Estim Creat Clear Calc 71.4 Estimated GFR > 60 POC Glucose 86 Random Glucose 99 Calcium 10.9 H D Troponin I High Sens 197.3 H* Triglycerides 83 Cholesterol 201 H LDL Cholesterol, Calc 130 H HDL Cholesterol 55 Urine Color Yellow Urine Appearance Clear Urine pH 8.5 Ur Specific [place] 1.015 Urine Protein Negative Urine Glucose (UA) Negative Urine Ketones Trace Urine Blood Negative Urine Nitrite Negative Ur Leukocyte Esterase Trace H Urine RBC 0-2 Urine WBC 0-5 Ur Squamous Epith Cells 0-2 Urine Bacteria None Seen Hyaline Casts 0-2 03/22/24 03/22/24 03/23/24 16:59 23:33 01:45 WBC RBC Hgb Hct MCV MCH MCHC RDW Plt Count MPV Immature Gran % (Auto) Neut % (Auto) Lymph % (Auto) Craig % (Auto) Eos % (Auto) Baso % (Auto) Lymph # (Auto) Craig # (Auto) Eos # (Auto) Baso # (Auto) Abs Immat Gran (auto) Absolute Neuts (auto) Absolute Nucleated RBC Nucleated RBC % (auto) PT INR APTT aPTT Heparin Protocol 75.8 Sodium Potassium Chloride Carbon Dioxide Anion Gap BUN Creatinine Estim Creat Clear Calc Estimated GFR POC Glucose Random Glucose Calcium Troponin I High Sens 307.3 H* D 649.7 H* D Triglycerides Cholesterol LDL Cholesterol, Calc HDL Cholesterol Urine Color Urine Appearance Urine pH Ur Specific [place] Urine Protein Urine Glucose (UA) Urine Ketones Urine Blood Urine Nitrite Ur Leukocyte Esterase Urine RBC Urine WBC Ur Squamous Epith Cells Urine Bacteria Hyaline Casts 03/23/24 03/23/24 05:53 07:49 WBC 12.6 H RBC 4.66 Hgb 13.6 Hct 42.3 MCV 90.8 MCH 29.2 MCHC 32.2 RDW 14.8 Plt Count 206 MPV 11.1 Immature Gran % (Auto) 0.4 Neut % (Auto) 83.3 H Lymph % (Auto) 10.4 L Craig % (Auto) 5.2 Eos % (Auto) 0.4 Baso % (Auto) 0.3 Lymph # (Auto) 1.3 Craig # (Auto) 0.7 Eos # (Auto) 0.1 Baso # (Auto) 0.0 Abs Immat Gran (auto) 0.05 H Absolute Neuts (auto) 10.5 H Absolute Nucleated RBC 0.000 Nucleated RBC % (auto) 0.0 PT INR APTT aPTT Heparin Protocol 96.2 H D Sodium 141 Potassium 3.2 L D Chloride 106 Carbon Dioxide 26 Anion Gap 12 BUN 13 Creatinine 0.73 Estim Creat Clear Calc 72.5 Estimated GFR > 60 POC Glucose Random Glucose 107 Calcium 9.0 D Troponin I High Sens 559.7 H* Triglycerides Cholesterol LDL Cholesterol, Calc HDL Cholesterol Urine Color Urine Appearance Urine pH Ur Specific [place] Urine Protein Urine Glucose (UA) Urine Ketones Urine Blood Urine Nitrite Ur Leukocyte Esterase Urine RBC Urine WBC Ur Squamous Epith Cells Urine Bacteria Hyaline Casts Discharge Plan Discharge Anticipated Discharge Date/Time: 03/23/24 10:15 Patient Disposition: Xfer Acute Care Hospital Discharge Diagnosis: Non ST-elevation [facility] Referrals: Po,Danika Gray MD [Primary Care Provider] - 1 Week Discharge Medications: New heparin(porcine) in 0.45% NaCl 25,000 unit/250 mL Parenteral Solution 25,000 unit continuous IV infusion .Q0M Qty: 6000 0RF atorvastatin 80 mg Tablet 80 mg PO DAILY Qty: 30 0RF acetaminophen 325 mg Tablet 650 mg PO Q6H PRN (Reason: Pain, Mild (Pain Scale 1-3), fever or headache) Qty: 30 0RF amlodipine 2.5 mg Tablet 2.5 mg PO DAILY Qty: 30 0RF Protocol: Hold for SBP< HOLD for SBP < : 90 aspirin 81 mg Tablet,Delayed Release (Dr/Ec) 81 mg PO DAILY Qty: 30 0RF nitroglycerin [Nitrostat] 0.4 mg tablet, sublingual 0.4 mg sublingual Q5M PRN (Reason: chest pain) Qty: 30 0RF Rx Instructions: do not exceed 3 doses per episode Continued tafluprost (PF) [Zioptan (PF)] 0.0015 % dropperette 1 drp ophthalmic (eye) BEDTIME Rx Instructions: Both eyes timolol maleate 0.5 % drops 1 drp ophthalmic (eye) BID Rx Instructions: Both eyes (DME) CPAP Machine/Device Device See Rx Instructions .Route Rx Instructions: As directed Discontinued Eliquis 5 mg tablet 5 mg PO BID 90 Days Qty: 180 3RF hydrochlorothiazide 25 mg tablet 25 mg PO DAILY Discharge Orders: Discharge Order (Routine); Ordered 03/23/24 Ordered By: Linh Montaño Diet: Low fat, low cholesterol Activity on Discharge: bedrest Stand Alone Forms: Patient Portal Discharge page Print Language: Comoran Care Plan Goals: Non ST-elevation [facility] being transferred to [facility] for cardiac catheterization On IV heparin drip started 03/22 at 18:45 Continue aspirin, Norvasc and lipitor Health Concerns: History of PE on Eliquis/hypertension/osteoporosis/GERD/obstructive sleep apnea on CPAP Plan of Treatment: Outpatient follow-up with Cardiology and primary care physician upon discharge Assessment: As above
[2024-03-23] MEDS: Potassium Chloride ER 20 MEQ TAB.ER.PRT 40 MEQ PO (11:03)
[2024-03-23] MEDS: amLODIPine Besylate 2.5 MG TABLET PO (11:04)
--- NOTE | 2024-03-23 11:20 | P.CNNE_ITS ---
History of Present Illness Data of Consult Service Date: 03/23/24 Primary Care Provider: MD MIKHAIL Buenrostro Reason for consult: Headache and difficulty speaking 73 years old woman who probably has underlying history of hypertension and anxiety disorder reported having chest pain in epigastric region and headache. She also had reported difficulty speaking and this consultation was requested. Now she was feeling better. She did not have any cold or flu-like illness. Review of Systems 2 Review of Systems: Acid reflex type of symptoms in the past PMFSH Past Medical History Medical History Sleep apnea Hiatal hernia Colon cancer screening Osteopenia Pubic bone fracture Hypertension Anxiety Pancreatic lesion Obstructive sleep apnea Peripheral vascular disease GERD (gastroesophageal reflux disease) Obesity (BMI 30-39.9) Glaucoma Osteoarthritis Thyroid nodule Hypercholesterolemia Recurrent pulmonary embolism Family History Family History Father Diabetes CHF (congestive heart failure) Hypertension CVD (cardiovascular disease) Mother Dementia Stroke Hypertension Son In good health Other Mental health disorder Surgical History Surgical History H/O colonoscopy History of left knee surgery History of eye surgery History of tonsillectomy History of cataract extraction Social History Social History Household Members: Spouse Housing: House Do you presently have visiting nurse or other home services: No Alcohol intake: never Patient Tobacco Use Status: Never used Tobacco Smoked in Last 30 Days: No e-Cigarette/Vaping Use: Never Used Second Hand Smoke Exposure: No Use of substances other than those prescribed or required for medical reasons: No Currently Displaying Signs/Symptoms of Drug Intoxication Withdrawal: No Have you been hit, kicked, punched, or otherwise hurt by someone within the past year? If so, by whom?: No Do you feel safe in your current relationship?: Yes Is there a partner from a previous relationship who is making you feel unsafe now?: No Are you made to feel afraid or neglected: No Judaism Healthcare Practices: Synagogue Advance Directives: No Advance Directives Information Provided: Yes Do you have a plan to hurt others: No Plan Recently lost weight without trying: No Eating poorly because of decreased appetite: No Nutrition Risks: On aspiration precautions Patient : No : No Poor oral hygiene: No service: No Current occupational status: retired Cognitive needs: No Hearing needs: No Vision needs: Yes Meds Allergies Allergy/AdvReac Type Severity Reaction Status Date / Time lisinopril [LISINOPRIL] Allergy Severe ANGIOEDEMA Verified 03/22/24 15:02 latex [LATEX] Allergy Mild RASH Verified 03/22/24 15:02 Active Medications: Current Medications Acetaminophen (Acetaminophen 325 Mg Tablet) 650 mg PO Q6H PRN PRN Reason: Pain, Mild (Pain Scale 1-3), fever or headache Last Admin: 03/23/24 01:55 Dose: 650 mg Amlodipine Besylate (Amlodipine Besylate 2.5 Mg Tablet) 2.5 mg PO DAILY [facility]; Protocol Last Admin: 03/23/24 11:04 Dose: 2.5 mg Aspirin (Aspirin Enteric Coated 81 Mg Tablet.Dr) 81 mg PO DAILY [facility] Last Admin: 03/23/24 08:10 Dose: 81 mg Atorvastatin Calcium (Atorvastatin Calcium 80 Mg Tablet) 80 mg PO DAILY [facility] Last Admin: 03/23/24 08:10 Dose: 80 mg Calcium Carbonate (Calcium Carbonate 750 Mg Tab.Chew) 750 mg PO Q4H PRN PRN Reason: Heartburn Heparin Sodium (Porcine) (Heparin Sodium,Porcine 5,000 Unit/Ml Vial) 3,800 unit 40 unit/kg (3800 unit) IVPUSH PROTOCOL BOLUS PRN; Protocol PRN Reason: 40 unit/kg - Heparin Protocol Heparin Sodium (Porcine) (Heparin Sodium,Porcine 5,000 Unit/Ml Vial) 7,500 unit 80 unit/kg (7500 unit) IVPUSH PROTOCOL BOLUS PRN; Protocol PRN Reason: 80 unit/kg - Heparin Protocol Heparin Sodium/Sodium Chloride (Heparin Sodium,Porcine/1/2ns) 25,000 unit in 250 mls @ 0 mls/hr IVCONT .Q0M [facility]; Protocol Last Titration: 03/23/24 09:42 Dose: 7.6 units/kg/hr, 7.17 mls/hr Magnesium Hydroxide (Milk Of Magnesia 30 Ml Oral.Susp) 30 ml PO DAILY PRN PRN Reason: Constipation Melatonin (Melatonin 3 Mg Tablet) 6 mg PO BEDTIME PRN PRN Reason: Insomnia Nitroglycerin (Nitroglycerin 2 % Oint 1 Gm Packet) 0.5 inch TRANSDERMA RQ6H WHILE AWAKE PRN PRN Reason: Chest Pain Last Admin: 03/22/24 19:26 Dose: 0.5 inch Non-Formulary Medication (Tafluprost (Pf) [Zioptan (Pf)]) 1 drop EYE-BOTH BEDTIME [facility] Ondansetron HCl (Ondansetron Hcl 4 Mg/2 Ml Vial) 4 mg IVPUSH Q4H PRN PRN Reason: Nausea and Vomiting Sodium Chloride (0.9 % Sodium Chloride Flush 3 Ml Syringe) 3 ml IVFLUSH QSHIFT [facility] Last Admin: 03/23/24 08:11 Dose: 3 ml Timolol Maleate (Timolol Maleate 0.5 % Oph [place] 5 Ml Drbtl) 1 drop EYE-BOTH BID [facility] Last Admin: 03/23/24 08:11 Dose: 1 drop Home Medications ?Medication ?Instructions ?Recorded ?Confirmed ?Last Taken ?Type tafluprost (PF) 0.0015 % eye drops 1 drp ophthalmic (eye) BEDTIME 06/29/20 03/22/24 Unknown History in a dropperette (Zioptan (PF)) CPAP (CPAP Machine/Device) 10/10/22 10/23/23 Unknown History timolol maleate 0.5 % eye drops 1 drp ophthalmic (eye) BID 03/22/24 03/22/24 Unknown History Physical Exam 2 Vital Signs: Vital Signs: Last Vital Signs Temp 97.9 F 03/23/24 07:25 Pulse 63 03/23/24 08:39 Resp 18 03/23/24 07:25 BP 141/74 H 03/23/24 11:04 Pulse Ox 93 03/23/24 08:39 O2 Del Method Room Air 03/23/24 07:25 BMI result Body Mass Index 34.6 Neuro: Other: She is alert and awake with normal spontaneity of speech fluency comprehension and affect. Face is symmetrical. Visual zavaleta are full. Deep tendon reflexes are trace to absent with flexor plantars. Speech is normal. Results Labs 03/23/24 05:53 03/23/24 05:53 Labs: Short CBC 03/22/24 03/23/24 Range/Units 15:28 05:53 WBC 11.3 H 12.6 H (4.8-10.8) X10*3/uL Hgb 14.8 13.6 (12.0-16.0) g/dl Hct 45.8 42.3 (37.0-47.0) % Plt Count 222 206 (160-400) X10*3/uL BMP 03/22/24 03/23/24 15:28 05:53 Sodium 142 141 Potassium 4.3 3.2 L D Chloride 103 106 Carbon Dioxide 31 H 26 BUN 16 13 Creatinine 0.75 0.73 Calcium 10.9 H D 9.0 D Urine 03/22/24 Range/Units 15:39 Urine Color Yellow Urine Appearance Clear Urine pH 8.5 (5.0-9.0) Ur Specific [place] 1.015 (1.005-1.025) Urine Protein Negative (Neg-Trace) mg/dL Urine Glucose (UA) Negative (Negative) mg/dL Mild cortical atrophy and mild cerebellar atrophy is noted on CT scan. Assessment and Plan (1) Word finding difficulty: Status: Acute 73 years old woman with underlying history of hypertension and anxiety disorder reported having chest pain headache and some word-finding difficulties. Everything put together, 1 diagnosis is difficult to determine. She might have epigastric pain related to reflex disease, resulting tension stress and anxiety attack resulting in headache and word-finding difficulties. Type of cortical atrophy I see put her at risk for anxiety/panic disorder. Procedures Date of Service Date of Service: 03/23/24
[2024-03-23 12:15] LABS: Prothrombin Time Whole Bld POC 13.7 sec (11.1-13.5); ~PT, ~INR - Anti Coag Clinic 1.1 (0.9-1.1)
[2024-03-23 12:35] LABS: Troponin-I High Sensitivity 463.8 ng/L (<3.5-17.0)
[2024-03-23 14:54] LABS: PTT Heparin Drip 51.5 SEC (53-77.9)
[2024-03-23] MEDS: Heparin Sodium,Porcine 5,000 UNIT/ML VIAL 3800 UNIT IVPUSH (16:04)
[2024-03-23 18:25] LABS: Troponin-I High Sensitivity 463.2 ng/L (<3.5-17.0)
[2024-03-23] MEDS: Heparin Sodium,Porcine/1/2NS 25,000 UNIT/250 ML IV.SOLN 9.05 UNIT IVCONT (20:27)
[2024-03-23 21:56] LABS: PTT Heparin Drip 104.5 SEC (53-77.9)
[2024-03-24] VITALS: BP 155/74; PULSE 68; RESP 18; TEMP 37.4; O2SAT 93
[2024-03-24 03:59] VITALS: BP 176/90; PULSE 67; RESP 18; TEMP 37.2; O2SAT 94
[2024-03-24 07:09] LABS: PTT Heparin Drip 47.3 SEC (53-77.9)
[2024-03-24] MEDS: Heparin Sodium,Porcine 5,000 UNIT/ML VIAL 3800 UNIT IVPUSH (07:42)
[2024-03-24 08:00] VITALS: PULSE 72; RESP 18; TEMP 36.3; O2SAT 95
[2024-03-24 08:35] VITALS: BP 170/100; PULSE 76
[2024-03-24 08:36] VITALS: BP 170/100
[2024-03-24] MEDS: Aspirin Enteric Coated 81 MG TABLET.DR PO (08:36)
[2024-03-24] MEDS: Atorvastatin Calcium 80 MG TABLET PO (08:36)
[2024-03-24] MEDS: amLODIPine Besylate 5 MG TABLET PO (08:36)
[2024-03-24] MEDS: timoloL maleate 0.5 % Oph Sol 5 ML DRBTL 1 DROP EYE-BOTH (08:37)
[2024-03-24] MEDS: 0.9 % Sodium Chloride Flush 3 ML SYRINGE IVFLUSH (08:37)
[2024-03-24 08:50] LABS: Potassium 4.1 mmol/L (3.3-5.1)
--- NOTE | 2024-03-24 10:42 | MHC.CM.PN ---
IMM 03/24/24, Pt lives with spouse, she is independent, no DME. The plan is for her to transfer to [facility] for cardiac procedure. HCP completed and added to chart.
--- NOTE | 2024-03-24 12:01 | PM.PNCARD ---
Subjective Subjective Date of Service: 03/24/24 Principal diagnosis: NSTEMI Interval history: No overnight chest pain or neurologic symptoms. Blood pressure is significantly elevated. She said that she did not sleep well at night at all and had anxiety and stress in the morning also anxious about the procedure. Review of Systems Review of Systems Yes all other systems are reviewed and are negative Physical Exam Vital Signs: Last Vital Signs Temp 97.4 F 03/24/24 08:00 Pulse 76 03/24/24 08:35 Resp 18 03/24/24 08:00 BP 170/100 H 03/24/24 08:36 Pulse Ox 95 03/24/24 08:00 O2 Del Method Room Air 03/24/24 08:00 BMI result Body Mass Index 34.6 Const General: cooperative, comfortable, no acute distress, alert and awake Nutritional Appearance: obese Orientation/consciousness: patient oriented x3 Limitations: no limitations HEENT Head: Yes normocephalic and Yes atraumatic Neck Neck: Yes trachea midline, Yes supple and Yes no JVD Resp Effort & Inspection: normal respiratory effort Auscultation: clear to auscultation bilaterally Cardio Jugular venous distension: no JVD Palpation: normal PMI Rate: regular rate Rhythm: regular rhythm Heart sounds: S1 normal heart sound present, S2 normal heart sound present, no click, no gallops, no murmurs and no rubs GI Auscultation: normal bowel sounds Skin General skin exam: no rashes or lesions noted Neuro General: patient oriented x3 and no focal motor deficits Extrem General: Yes no clubbing, cyanosis or edema Psych Appearance: grossly normal Objective Labs and Meds 03/23/24 05:53 03/24/24 08:32 Lab results: Laboratory Results - last 24 hr 03/22/24 03/23/24 03/23/24 15:04 11:36 14:30 Hold Purple Top Whole Blood PT 13.7 H Whole Blood INR 1.1 aPTT Heparin Protocol 51.5 L D Potassium Troponin I High Sens 463.8 H* 03/23/24 03/23/24 03/24/24 17:09 21:25 06:18 Hold Purple Top SEE NOTE Whole Blood PT Whole Blood INR aPTT Heparin Protocol 104.5 H D 47.3 L D Potassium Troponin I High Sens 463.2 H* 03/24/24 08:32 Hold Purple Top Whole Blood PT Whole Blood INR aPTT Heparin Protocol Potassium 4.1 D Troponin I High Sens Progress Note: A&P Assessment and plan (1) NSTEMI (non-ST elevated myocardial infarction): Status: Acute Assessment and Plan: NSTEMI with symptoms and troponins suggestive of myocardial injury. Will require cardiac catheterization. This was discussed with her again. She understands agrees. I told her that she should relax to help her blood pressure. Agree with increasing her amlodipine to 5 mg daily. Stress mitigation strategies will help. Further treatment based on the findings of cardiac catheterization including if she requires PCI therapy. Pathophysiology of acute coronary syndrome was discussed. Will set up for outpatient follow-up. Time Spent With Patient Time: Total time managing care of this patient today ____ minutes. Progress Note: Quality Stroke Does the patient have a stroke diagnosis?: No Procedures Date of Service Date of Service: 03/24/24
== END 2024-03-24 11:25 | disposition short-term general hospital (02) | DRG 282 ==
LOC: HO.ED 16:16 → HO.EDOVER 18:02 → HO.IMC 23:38
PROVIDERS: Student in an Organized Health Care Education/Training Program; Admitting Provider Physician Assistant; Emergency Provider Student in an Organized Health Care Education/Training Program; PCP Internal Medicine; Visit Provider Hospitalist
DX: I21.4 Non-ST elevation (NSTEMI) myocardial infarction (principal); K21.9 Gastro-esophageal reflux disease without esophagitis; I10 Essential (primary) hypertension; G47.33 Obstructive sleep apnea (adult) (pediatric); Z79.899 Other long term (current) drug therapy; Z79.01 Long term (current) use of anticoagulants; Z86.711 Personal history of pulmonary embolism
CPT/HCPCS: 36415; 70450; 70496; 70498; 71045; 72052; 80048; 80061; 81001; 82947; 84132; 84484; 85025; 85610; 85730; 93005; 93306; 94660; 97162; 97166; 99285; J0696; J1644; Q9957; Q9967

== ENCOUNTER → 2024-03-22 14:37 | Outpatient (BNV) | payer MEDICARE, SELFPAY | PROVIDERS: Admitting Provider Physician Assistant; Emergency Provider Student in an Organized Health Care Education/Training Program; PCP Internal Medicine; Visit Provider Internal Medicine Cardiovascular Disease | DX: R07.9 Chest pain, unspecified (principal) | CPT/HCPCS: 93010 ==

== ENCOUNTER 2024-03-22 17:59 | Outpatient (BNV) | payer MEDICARE, SELFPAY | END 2024-03-23 07:00 | PROVIDERS: Admitting Provider Physician Assistant; Emergency Provider Student in an Organized Health Care Education/Training Program; PCP Internal Medicine; Visit Provider Internal Medicine Cardiovascular Disease | DX: I63.9 Cerebral infarction, unspecified (principal); I21.4 Non-ST elevation (NSTEMI) myocardial infarction; I51.89 Other ill-defined heart diseases; R07.9 Chest pain, unspecified | CPT/HCPCS: 93010; 93306 ==

== ENCOUNTER → 2024-03-22 17:59 | Outpatient (BNV) | payer MEDICARE, SELFPAY | PROVIDERS: Admitting Provider Physician Assistant; Emergency Provider Student in an Organized Health Care Education/Training Program; PCP Internal Medicine; Visit Provider Internal Medicine Cardiovascular Disease | DX: I21.4 Non-ST elevation (NSTEMI) myocardial infarction (principal) | CPT/HCPCS: 99222; 99233 ==

== ENCOUNTER → 2024-03-22 17:59 | Outpatient (BNV) | payer MEDICARE, SELFPAY | PROVIDERS: Admitting Provider Physician Assistant; Emergency Provider Student in an Organized Health Care Education/Training Program; PCP Internal Medicine; Visit Provider Hospitalist | DX: I21.4 Non-ST elevation (NSTEMI) myocardial infarction (principal) | CPT/HCPCS: 99223; 99239 ==

== ENCOUNTER → 2024-03-22 17:59 | Outpatient (BNV) | payer MEDICARE, SELFPAY | PROVIDERS: Admitting Provider Physician Assistant; Emergency Provider Student in an Organized Health Care Education/Training Program; PCP Internal Medicine; Visit Provider Psychiatry & Neurology Neurology | DX: R47.89 Other speech disturbances (principal) | CPT/HCPCS: 99222 ==

== ENCOUNTER 2024-04-07 14:08 | Outpatient (AMB) | payer MEDICARE, SELFPAY ==
--- NOTE | 2024-04-07 14:59 | A.OFFVIS_ITS ---
Vital Signs 04/07/24 15:00 04/07/24 15:27 Height 5 ft 3 in Weight 210 lb BMI 37.2 BP 116/58 L 122/68 Blood Pressure Location Lt brachial Lt brachial Position Sitting Pulse 78 Pulse Source Pulse Oximeter Intake Visit Reasons: Hospital Follow up-Heart attack Allergies lisinopril [LISINOPRIL] Allergy (Severe, Verified 03/22/24 15:02) ANGIOEDEMA latex [LATEX] Allergy (Mild, Verified 03/22/24 15:02) RASH Medication List - Last Reconciled 04/07/24 by Norma Preston NP acetaminophen 650 mg (2 x 325 mg) PO Q6H PRN amlodipine 10 mg See Protocol PO DAILY apixaban (Eliquis) 5 mg PO BID atorvastatin 80 mg PO DAILY carvedilol 6.25 mg PO BID CPAP (CPAP Machine/Device) As directed hydrochlorothiazide 25 mg PO DAILY multivitamin with minerals (DAILY VITAMIN FORMULA-MINERALS tablet) 1 tab PO BEDTIME tafluprost (PF) 0.0015% (Zioptan (PF)) 1 drp ophthalmic (eye) BEDTIME timolol maleate 0.5% 1 drp ophthalmic (eye) BID HPI Comments Details: 73-year-old female presents today for a follow-up after cardiac catherization. Patient had a cardiac catherization with Dr. Hsu on 03/24/2024 due to NSTEMI. She was at a car dealership and started to expierence chest pressure and ask for EMS to be called. She was brought to [facility]. She reports she has been overall okay. She has a sensation in her left side sometimes and feels tired. [facility] Medical History (Updated 04/07/24 @ 15:33 by Norma Preston NP) Palpitations Sleep apnea Hiatal hernia Colon cancer screening Osteopenia Pubic bone fracture Hypertension Anxiety Pancreatic lesion Obstructive sleep apnea Peripheral vascular disease GERD (gastroesophageal reflux disease) Obesity (BMI 30-39.9) Glaucoma Osteoarthritis Thyroid nodule Hypercholesterolemia Recurrent pulmonary embolism Surgical History (Updated 04/11/24 @ 14:49 by Norma Preston NP) S/P cardiac catheterization H/O colonoscopy History of left knee surgery History of eye surgery History of tonsillectomy History of cataract extraction Family History Father Diabetes CHF (congestive heart failure) Hypertension CVD (cardiovascular disease) Mother Dementia Stroke Hypertension Son In good health Other Mental health disorder Social History Household Members: Spouse Housing: House Do you presently have visiting nurse or other home services: No Alcohol intake: never Patient Tobacco Use Status: Never used Tobacco e-Cigarette/Vaping Use: Never Used Second Hand Smoke Exposure: No service: No Current occupational status: retired Cognitive needs: No Hearing needs: No Vision needs: Yes Review of Systems Const Denies weakness ENT Denies dizziness Card Denies chest pain, Denies chest pain with activity, Denies syncope, Denies rapid heart rate, Denies pedal edema, Denies edema, Denies leg edema, Denies lightheadedness, Denies palpitations, Denies dyspnea, Denies dyspnea on exertion and Denies orthopnea Resp Denies cough, Denies dyspnea and Denies dyspnea on exertion GI Denies hematochezia and Denies change in stool character Musc Denies abnormal gait, Denies muscle cramps, Denies muscle weakness, Denies numbness, Denies radiating pain into limb and Denies tingling Neuro Denies abnormal gait, Denies dizziness, Denies syncope, Denies numbness, Denies tingling and Denies weakness Endo Denies palpitations Physical Exam Vital Signs: Last Vital Signs Pulse 78 04/07/24 15:00 BP 122/68 04/07/24 15:27 BMI result Body Mass Index 37.2 Assessment & Plan Assessment & Plan (1) NSTEMI (non-ST elevated myocardial infarction): Code(s): I21.4 - Non-ST elevation (NSTEMI) myocardial infarction Category: Medical (2) Hypercholesterolemia: Code(s): E78.00 - Pure hypercholesterolemia, unspecified Category: Medical (3) S/P cardiac catheterization: Comment: 03/24/2024 with Shadi Olsen Cardiac Arteries and Lesion Findings LMCA: Normal. LAD: Normal. LCx: Normal. RCA: Normal. NSTEMI Code(s): Z98.890 - Other specified postprocedural states Category: Surgical (4) Hypertension: Code(s): I10 - Essential (primary) hypertension Category: Medical Plan paient brought for cardiac catheterization for NSTEMI/chest pains and elevated blood pressures showing normal coronary arteries. Home readings are between 90 and low 100s.. Will decrease amlodipine to 5 mg. Monitor blood pressures at home. Will do holter to assess for arrhythmias causing sensation in chest. Last LDL on 03/22/2024 was 130. She was just started on cholesterol medication at time of discharge. Will check lipid panel in 2-3 months. Patient agreeable to cardiac rehab. Orders: Orders Lipid Panel 2 Months Norma Preston NP E78.00 - Pure hypercholesterolemia, unspecified Basic Metabolic Panel 2 Months Norma Preston NP E78.00 - Pure hypercholesterolemia, unspecified Cardiac Rehab 04/07/24 Norma Preston NP I21.4 - Non-ST elevation (NSTEMI) myocardial infarction ECG 3 day holter monitor 04/07/24 Norma Preston NP R00.2 - Palpitations Medications: Changed From amlodipine 5 mg See Protocol PO DAILY 30 tabs 0RF To amlodipine 10 mg See Protocol PO DAILY Linh Montaño MD Coding Level of Care Code Est Pt Level 3 (65980) Diagnoses NSTEMI (non-ST elevated myocardial infarction) I21.4 Hypercholesterolemia E78.00 S/P cardiac catheterization Z98.890 Hypertension I10
[2024-04-07 15:00] VITALS: BP 116/58; PULSE 78; BMI 37.2
[2024-04-07 15:27] VITALS: BP 122/68
== END 2024-04-07 15:44 | disposition home or self-care (01) ==
PROVIDERS: PCP Internal Medicine; Visit Provider Nurse Practitioner
DX: I21.4 Non-ST elevation (NSTEMI) myocardial infarction (principal); E78.00 Pure hypercholesterolemia, unspecified; Z98.890 Other specified postprocedural states; I10 Essential (primary) hypertension
CPT/HCPCS: 99213

== ENCOUNTER → 2024-04-07 14:08 | Outpatient (BNVA) | payer MEDICARE, SELFPAY | PROVIDERS: PCP Internal Medicine; Visit Provider Nurse Practitioner | DX: I21.4 Non-ST elevation (NSTEMI) myocardial infarction (principal); E78.00 Pure hypercholesterolemia, unspecified; I10 Essential (primary) hypertension; R00.2 Palpitations; Z98.890 Other specified postprocedural states | CPT/HCPCS: 99212 ==

== ENCOUNTER → 2024-04-12 10:47 | Outpatient (REF) | payer MEDICARE, SELFPAY ==
--- NOTE | 2024-04-12 10:51 | HM_ITS ---
Conclusion: 1. Patient was monitored for total period of 2 days and 23 hours 2. Baseline was normal sinus rhythm with average heart of 60 beats per minute 3. No significant pauses noted but frequent sinus bradycardia noted, 51% of the time heart rate below 60 beats per minute 4. Rare PACs noted 5. No patient reported events MTDD
== END ==
LOC: HO.CARD 10:47
PROVIDERS: PCP Internal Medicine; Visit Provider Nurse Practitioner
DX: R00.2 Palpitations (principal)
CPT/HCPCS: 93242

== ENCOUNTER → 2024-04-12 10:51 | Outpatient (BNV) | payer MEDICARE, SELFPAY | PROVIDERS: PCP Internal Medicine; Visit Provider Internal Medicine Cardiovascular Disease | DX: R00.1 Bradycardia, unspecified (principal) | CPT/HCPCS: 93244 ==

== ENCOUNTER 2024-04-22 10:31 | Outpatient (AMB) | payer MEDICARE, SELFPAY ==
--- NOTE | 2024-04-22 10:52 | A.OFFPC_ITS ---
Vital Signs 04/22/24 10:53 Height 5 ft 3 in Weight 189 lb BMI 33.5 BP 120/68 Blood Pressure Location Lt brachial Position Sitting Pulse 56 Pulse Source Pulse Oximeter Pulse Oximetry (%) 98 Oxygen Delivery Method Room Air Intake Visit Reasons: gerd, HTN Intake Note: Patient is here to follow up on gerd, HTN. Regulatory Submissions Specialist Required: No Allergies lisinopril [LISINOPRIL] Allergy (Severe, Verified 04/22/24 10:53) ANGIOEDEMA latex [LATEX] Allergy (Mild, Verified 04/22/24 10:53) RASH Medication List - Last Reconciled 04/22/24 by Danika Gray Po, acetaminophen 650 mg (2 x 325 mg) PO Q6H PRN amlodipine 5 mg See Protocol PO DAILY apixaban (Eliquis) 5 mg PO BID atorvastatin 80 mg PO DAILY carvedilol 6.25 mg PO BID CPAP (CPAP Machine/Device) As directed hydrochlorothiazide 25 mg PO DAILY multivitamin with minerals (DAILY VITAMIN FORMULA-MINERALS tablet) 1 tab PO BEDTIME tafluprost (PF) 0.0015% (Zioptan (PF)) 1 drp ophthalmic (eye) BEDTIME timolol maleate 0.5% 1 drp ophthalmic (eye) BID triamcinolone acetonide 0.1% 1 appl topical BID-TID Tobacco use date assessed: 01/11/24 Fall risk assessment: No Falls in past year Last assessed Fall Risk: 04/22/24 Dental Screening Dental Screen Date: 10/23/23 HPI gerd, HTN HPI Details 73-year-old obese female with multiple m edical problems last seen in January 2024 has obstructive sleep apnea recurrent pulmonary embolism had a positive colorectal cancer screening test and osteoporosis. Mammograms up-to-date bone density is up-to-date 07/27/2023. Review of the notes Holter done in April 19 Patient was monitored for total period of 2 days and 23 hours 2. Baseline was normal sinus rhythm with average heart of 60 beats per minute 3. No significant pauses noted but frequ ent sinus bradycardia noted, 51% of the time heart rate below 60 beats per minute 4. Rare PACs noted 5. No patient reported events Patient was seen by Cardiology post cardiac catheterization for a NSTEMI heart attack. [id number] normal coronaries noted to have low blood pressures and so decreased amlodipine to 5 mg once a day LDL was 130 at that time and was started on cholesterol medication. Hospitalization was March [address] head and neck normal concern about CVA but negative. Echocardiogram done EF 60-65%. Patient did have the colonoscopy done in 02/25/2024 showing diverticulosis and internal hemorrhoids. BP at home low SBP of < 110 PFSH Medical History (Updated 04/22/24 @ 11:30 by Danika Pino MD) Palpitations Sleep apnea Hiatal hernia Colon cancer screening Osteopenia Pubic bone fracture Hypertension Anxiety Pancreatic lesion Obstructive sleep apnea Peripheral vascular disease GERD (gastroesophageal reflux disease) Obesity (BMI 30-39.9) Glaucoma Osteoarthritis Thyroid nodule Hypercholesterolemia Recurrent pulmonary embolism Surgical History (Updated 04/11/24 @ 14:49 by Norma Preston NP) S/P cardiac catheterization H/O colonoscopy History of left knee surgery History of eye surgery History of tonsillectomy History of cataract extraction Family History Father Diabetes CHF (congestive heart failure) Hypertension CVD (cardiovascular disease) Mother Dementia Stroke Hypertension Son In good health Other Mental health disorder Social History Household Members: Spouse Housing: House Do you presently have visiting nurse or other home services: No Alcohol intake: never Patient Tobacco Use Status: Never used Tobacco e-Cigarette/Vaping Use: Never Used Second Hand Smoke Exposure: No service: No Current occupational status: retired Cognitive needs: No Hearing needs: No Vision needs: Yes Questionnaire Thrive Questionnaire Date Thrive assessed: 03/24/24 AUDIT C Alcohol Use Questionnaire (AUDIT-C) 1. How often do you have a drink containing alcohol?: Never 3. How often do you have six or more drinks on one occasion?: Never Total Score: 0 ARNIE-7 AMB Questionnaire ARNIE-7 Date ARNIE - 7 assessed: 09/22/23 Source: Developed by Drs. Raul Estes, Va Stone, Sunny Mosqueda and colleagues, with an educational diana from [employer]. Physical exam (Primary Care) Vital Signs: Last Vital Signs Pulse 56 04/22/24 10:53 BP 120/68 04/22/24 10:53 Pulse Ox 98 04/22/24 10:53 Oxygen Delivery Method Room Air 04/22/24 10:53 BMI result Body Mass Index 33.5 Tobacco/Smoking Status: Tobacco use Status Tobacco use date assessed 01/11/24 04/22/24 10:52 Patient Tobacco Use Status Never used Tobacco 04/22/24 10:52 e-Cigarette/Vaping Use Never Used 04/22/24 10:52 Thrive Assessment: Date of Thrive Assessment Date Thrive assessed 03/24/24 04/22/24 10:52 Const General: alert; No acute distress Eyes Conjunctivae: conjunctivae normal Resp Auscultation: clear to auscultation bilaterally Cardio Rate: regular rate Rhythm: regular rhythm GI Inspection: Yes normal to inspection Extrem General: Yes normal to inspection and No edema Assessment and Plan Assessment & Plan (1) NSTEMI (non-ST elevated myocardial infarction): Comment: Cardiac catheterization 03/26/2024 normal coronaries Code(s): I21.4 - Non-ST elevation (NSTEMI) myocardial infarction Plan: Control the cholesterol, weight, blood pressure, continue with anticoagulation (2) Recurrent pulmonary embolism: Comment: 04/24/2015, 6 months September 2015 Code(s): I26.99 - Other pulmonary embolism without acute cor pulmonale Plan: Continue with anticoagulation (3) Hypertension: Code(s): I10 - Essential (primary) hypertension Plan: Continue with carvedilol 6.25 mg twice a day amlodipine 10 mg once a day hydrochlorothiazide 25 mg once a day. decrease amlodipine to 5 mg QD due to (4) Obstructive sleep apnea: Comment: CPAP Code(s): G47.33 - Obstructive sleep apnea (adult) (pediatric) Plan: Continue to use the CPAP more than 4 hours a night and benefits from this (5) GERD (gastroesophageal reflux disease): Comment: Upper GI series Julymall to moderate-sized hiatal hernia with moderate gastroesophageal reflux. Small diverticulum in second segment of duodenum. Suspect gastric hyperacidity. Code(s): K21.9 - Gastro-esophageal reflux disease without esophagitis Plan: Avoid the foods that causes that usually spicy foods, tomato products, juices, coffee, soda and foods that your sensitive to. After eating do not lie down, allow 3-4 hours before in lie down. And keep the head of bed above 30 degrees to avoid the acid from going up. (6) Obesity (BMI 30-39.9): Code(s): E66.9 - Obesity, unspecified Plan: Diet and exercise noted weight loss (7) Hypercholesterolemia: Code(s): E78.00 - Pure hypercholesterolemia, unspecified Plan: Avoid fried foods, chicken skin, eggs, butter margarine, pastries and meat. Be it pork or beef they have a lot of cholesterol on atorvastatin 80 mg once a day LDL goal of less than 70 (8) Impaired glucose tolerance: Code(s): R73.02 - Impaired glucose tolerance (oral) Plan: Decrease the amount of carbohydrate intake, pasta, bread, rice and potatoes are all sugar and that is aside from all the sweet stuff, remember that fruits are good but they are Sweet also. Orders: Orders Complete Blood Count Auto Diff 2 Months E78.00 - Pure hypercholesterolemia, unspecified Comprehensive Met. Panel 2 Months E78.00 - Pure hypercholesterolemia, unsp ecified Hemoglobin A1c 2 Months E78.00 - Pure hypercholesterolemia, unspecified Magnesium 2 Months I10 - Essential (primary) hypertension Free T4 (Free Thyroxine) 2 Months E78.00 - Pure hypercholesterolemia, unspecified Thyroid Stimulating Hormone 2 Months E78.00 - Pure hypercholesterolemia, unspecified Lipid Panel 2 Months E78.00 - Pure hypercholesterolemia, unspecified Vitamin B12 and Folate 2 Months E78.00 - Pure hypercholesterolemia, unspecified Vitamin D 25-OH Total 2 Months E78.00 - Pure hypercholesterolemia, unspecified Medications: New amlodipine 10 mg See Protocol PO DAILY 90 tabs 2RF I10 - Essential (primary) hypertension carvedilol 6.25 mg PO BID 180 tabs 2RF I10 - Essential (primary) hypertension Changed From amlodipine 10 mg See Protocol PO DAILY 90 tabs 2RF I10 - Essential (primary) hypertension To amlodipine 5 mg See Protocol PO DAILY 90 tabs 2RF I10 - Essential (primary) hypertension Refilled atorvastatin 80 mg PO DAILY 90 tabs 2RF E78.00 - Pure hypercholesterolemia, unspecified Coding Level of Care Code Est Pt Level 4 (33892) Diagnoses NSTEMI (non-ST elevated myocardial infarction) I21.4 Recurrent pulmonary embolism I26.99 Hypertension I10 Obstructive sleep apnea G47.33 GERD (gastroesophageal reflux disease) K21.9 Obesity (BMI 30-39.9) E66.9 Hypercholesterolemia E78.00 Impaired glucose tolerance R73.02
[2024-04-22 10:53] VITALS: BP 120/68; PULSE 56; O2SAT 98; BMI 33.5
== END 2024-04-22 11:56 | disposition home or self-care (01) ==
PROVIDERS: PCP Internal Medicine; Visit Provider Internal Medicine
DX: I10 Essential (primary) hypertension (principal); I25.2 Old myocardial infarction; I26.99 Other pulmonary embolism without acute cor pulmonale; G47.33 Obstructive sleep apnea (adult) (pediatric); K21.9 Gastro-esophageal reflux disease without esophagitis; E66.9 Obesity, unspecified; E78.00 Pure hypercholesterolemia, unspecified; R73.02 Impaired glucose tolerance (oral)
CPT/HCPCS: 99214

== ENCOUNTER → 2024-05-05 13:30 | Outpatient (RCR) | payer MEDICARE, SELFPAY ==
[2020-06-29 09:21] VITALS: BP 145/81; PULSE 68; RESP 18; TEMP 36.8; O2SAT 96; BMI 33.6
--- NOTE | 2020-06-29 09:23 | P.PNHO_ITS ---
Medical Summary - Medical Summary Chief complaint: follow-up for: Recurrent PE. Medical Summary: DIAGNOSIS: RECURRENT P.E, 02/22. CURRENT THERAPY: ELIQUIS 5 MG PO BID. Interval History Interval history: This is a pleasant 69-year-old lady here for a follow-up visit. She tells me she has been doing quite well. Towards the end of May, she noted some nasal congestion. Her left nostril is worse than the right. She feels that she cannot even blow her nose. She denies any COVID symptoms. She did get the flu shot on June 07. She tried saline spray since this started the heat up in the house. Denies any fever nor chills. She denies any changes in her medical history. She has excellent energy level. She denies any chest pain or trouble breathing. She denies any abdominal pain nausea vomiting heartburn indigestion. Bowels are moving without any gross blood in it. Her appetite is fantastic. She has gained some weight. She is under the care of her dietitian. Both she and her are retired. Her had a heart attack last year. They do go out for walks. They have been going to [employer] for grocery shopping, otherwise staying home. She is in good spirits. Rest of the review of systems is unremarkable. She has some anxiety related to the current situation. However she keeps herself occupied at home doing crafts. Previous history: She has a history of thyroid nodules. She had FNA of 2 of them. They were benign. She will discuss it further with Dr. Pino if she needs to follow-up with endocrine. She did get her labs checked. Her TSH was borderline elevated, In November at 4.7. However it was 2.7 on March 06. Review of Systems - Constitutional Denies lack of energy - Eyes Denies blurry vision - ENT Reports system reviewed and no additional complaints, except as documented - Cardiovascular Denies chest pain - Respiratory Reports cough - Gastrointestinal Reports abdominal pain - Musculoskeletal Denies muscle weakness - Integumentary/Breasts Skin/Breast: Denies bleeding lesions - Neurologic Reports system reviewed and no additional complaints, except as documented - Psychiatric Denies anxiety - Endocrine Denies cold intolerance [facility] Medical History: Medical History (Last Updated 06/29/20 @ 09:37 by Kallie Ingram RN) HTN (hypertension) Pulmonary embolism Sleep apnea Patient : No Family History: Family History (Last Updated 06/29/20 @ 08:26 by Kallie Ingram RN) Father Diabetes CHF (congestive heart failure) Mother Dementia Mother Glaucoma Surgical History: Surgical History (Last Updated 06/29/20 @ 08:23 by Kallie Ingram RN) History of cataract extraction Home Medications and Allergies Home Medications Medication Instructions Recorded Confirmed Type Lactobacillus rhamnosus GG 1 cap PO DAILY 06/29/20 06/29/20 History [Culturelle] amlodipine 1 tab PO DAILY 06/29/20 06/29/20 History apixaban [Eliquis] 1 tab PO BID 06/29/20 06/29/20 History calcium carbonate-vitamin D3 1 tab PO ONCE 06/29/20 06/29/20 History [Caltrate with Vitamin D3] hydrochlorothiazide 1 tab PO DAILY 06/29/20 06/29/20 History tafluprost (PF) [Zioptan (PF)] 1 drp OPHTHALMIC (EYE) BEDTIME 06/29/20 06/29/20 History Allergies Allergy/AdvReac Type Severity Reaction Status Date / Time lisinopril [LISINOPRIL] Allergy Severe ANGIOEDEMA Verified 06/29/20 09:38 latex [LATEX] Allergy Mild RASH Verified 06/29/20 09:38 Exam Vital signs: Vital Signs Temp 98.2 F 06/29/20 09:21 Pulse 68 06/29/20 09:21 Resp 18 06/29/20 09:21 BP 145/81 H 06/29/20 09:21 Pulse Ox 96 06/29/20 09:21 - Constitutional Present: no acute distress - Routine HEENT Exam Head: Present: normal inspection ENT: Present: mucous membranes moist - Routine Neck Exam Present: full ROM - Routine Chest/Breast/Axilla Exam Breast: Present: Normal Exam - Routine Respiratory Exam Present: CTAB - Routine Cardiovascular Exam Cardiovascular: Present: RRR, S1, S2 - Routine Abdominal Exam Present: soft, nontender - Routine Extremities Exam Present: nontender - Routine Skin Exam Present: intact - Routine Neurological Exam Present: alert - Detailed Neurological Exam: Coma Scale Eye Opening: Spontaneous (4) Verbal Response: Oriented (5) - Routine Psychiatric Exam Present: normal affect Data - Labs CBC & Chem 7: 06/29/20 09:38 06/29/20 09:38 Progress Note: A/P (1) Recurrent pulmonary embolism Status: Acute Assessment and plan: This is a pleasant 69 year-old lady, who presented in February, with a one week of dyspnea on exertion. She had a CTA ordered by her primary which was positive for a PE. She was started on Lovenox. Then bridged over to Eliquis. She had a previous episode of bilateral PE in April 2015, that appeared unprov oked, though I was concerned that since she had fallen down prior to this, she had injured her right leg so that could have possibly been the precipitating factor. She underwent a hypercoagulable workup at that time which was negative. Since that was her second episode of pulmonary embolism, I recommended long-term anticoagulations therapy. She has remained on the Eliquis. That appears to be working well for her. Her d-dimer from June was less than 200. She has had arthroscopic knee surgery. That worked out well. She then had dental extractions, November 18. It healed well. She is waiting for her dentures to be made to complete the process. PLAN: Since she has had 2 episodes of PE, she will continue on the Eliquis, on the long-term basis. I offered to help, in case she needs co-pay assistance. For now she has enough. She will return in 6 months for a followup visit. Will follow-up on the D-dimer at that time. 25 minutes were spent coordinating her care including the telephone interview. Thank you, CC: Dr. Pino. Dr. Rosen, [address] [place] [address]. [place]. - Time Spent With Patient Total time spent is greater than 50% in coordination of care (as documented) at patient's floor/unit and/or counseling patient: 25 - 35 minutes
[2020-06-29 09:43] LABS: MANUAL DIFF FLAG NO
[2020-06-29 10:01] LABS: Basophils Absolute Auto 0.1 X10*3/uL (0.0-0.2); Basophils Percent Auto 0.9 % (0-2); Eosinophils Absolute Auto 0.3 X10*3/uL (0.0-0.4); Eosinophils Percent Auto 4.4 % (0-4); Hematocrit 42.8 % (37-47); Hemoglobin 13.4 g/dl (12.0-16.0); Imm Gran Abs Auto 0.02 X10*3/uL (0.00-0.03); Imm Gran Pct Auto 0.3 % (0.0-0.4); Lymphocytes Absolute Auto 1.6 X10*3/uL (1.2-4.9); Mean Corpuscular HGB Conc 31.3 g/dl (31.0-35.0); Mean Corpuscular Hemoglobin 29.5 pg (27.0-33.0); Mean Corpuscular Volume 94.3 fL (80-98); Mean Platelet Volume 10.4 fL (9.4-12.3); Monocytes Absolute Auto 0.7 X10*3/uL (0.1-1.2); Monocytes Percent Auto 9.1 % (2-11); Neutrophils Absolute Auto 4.9 X10*3/uL (2.0-8.3); Neutrophils Percent Auto 64.3 % (45-73); Platelet Count 234 X10*3/uL (160-400); Red Blood Count 4.54 X10*6/uL (4.20-5.50); Red Cell Distribution Width 14.6 % (11.0-16.0); White Blood Count 7.6 X10*3/uL (4.8-10.8)
[2020-06-29 10:22] LABS: Alanine Aminotransferase 25 U/L (0-31); Albumin Level 4.1 g/dL (3.5-5.0); Alkaline Phosphatase 61 U/L (39-117); Anion Gap 10 (12-20); Aspartate Amino Transferase 21 U/L (5-31); Bilirubin Total 0.4 mg/dL (0.0-1.0); Blood Urea Nitrogen 17 mg/dL (9-16); Calcium 9.6 mg/dL (8.4-10.2); Carbon Dioxide 34 mmol/L (22-29); Chloride 104 mmol/L (96-108); Creatinine Clr Calc Pharmacy 73.6; Estimated Glomerular Filt Rate > 60; Glucose Random 73 mg/dL (60-115); Sodium 144 mmol/L (135-145); Total Protein 6.9 g/dL (6.5-8.0)
[2020-06-29 10:34] LABS: D Dimer < 200 NG/ML
[2020-12-28 09:03] VITALS: BP 171/73; PULSE 60; RESP 12; TEMP 36.8; O2SAT 96; BMI 34.7
[2020-12-28 09:16] LABS: MANUAL DIFF FLAG NO
--- NOTE | 2020-12-28 09:17 | P.PNHO_ITS ---
Medical Summary - Medical Summary Date of Service: 12/28/20 Chief complaint: Follow-up for: Pulmonary embolism. Medical Summary: DIAGNOSIS: RECURRENT P.E, 02/22. CURRENT THERAPY: ELIQUIS 5 MG PO BID. Interval History Interval history: This is a pleasant 70 year-old lady here for a follow-up visit. She tells me she has been doing quite well. She has good energy level. She received both doses of the [employer] in my Pocket (PRIMP) vaccine at the [facility]. It was well organized. She and her both received it. Denies any fever nor chills. She denies any changes in her medical history. She has excellent energy level. She has been busy doing stuff. She does walk around. She denies any chest pain or trouble breathing. She denies any abdominal pain nausea vomiting heartburn indigestion. Bowels are moving without any gross blood in it. Her appetite is fantastic. She has actually gained weight. She is under the care of her dietitian. She denies any easy bruising nor systemic bleeding. Both she and her are retired. Her had a heart attack last year. They do go out for walks. They have been going to [employer], for grocery shopping, otherwise staying home. She is in good spirits. Rest of the review of systems is unremarkable. She has some anxiety related to the current situation. However she keeps herself occupied at home doing crafts. Previous history: She has a history of thyroid nodules. She had FNA of 2 of them. They were benign. She will discuss it further with Dr. Pino if she needs to follow-up with endocrine. She did get her labs checked. Her TSH was borderline elevated, In November at 4.7. However it was 2.7 on March 06. Towards the end of May, she noted some nasal congestion. Her left nostril is worse than the right. She feels that she cannot even blow her nose. She denies any COVID symptoms. She did get the flu shot on June 07. She tried saline spray since this started the heat up in the house. Review of Systems - Constitutional Reports no additional constitutional complaints - Eyes Reports no additional eye complaints - ENT Reports no additional ear, nose, mouth, and throat complaints - Cardiovascular Reports no additional cardiovascular complaints - Respiratory Reports no additional respiratory complaints - Gastrointestinal Reports no additional gastrointestinal complaints - Genitourinary Reports no additional female genitourinary complaints - Musculoskeletal Reports no additional musculoskeletal complaints - Integumentary/Breasts Skin/Breast: Reports no additional skin complaints - Neurologic Reports no additional neurologic complaints - Psychiatric Reports no additional psychiatric complaints - Endocrine Reports no additional endocrine complaints - Hematologic/Lymphatic Reports no additional hematologic/lymphatic complaints - Allergic/Immunologic Reports no additional allergic/immunologic complaints [facility] Medical History: Medical History (Last Reviewed 12/28/20 @ 09:07 by Lexy Moran) Anxiety GERD (gastroesophageal reflux disease) Glaucoma Hypercholesterolemia Hypertension Obesity (BMI 30-39.9) Obstructive sleep apnea Osteoarthritis Pancreatic lesion Peripheral vascular disease Pubic bone fracture Recurrent pulmonary embolism Thyroid nodule Functional capacity: independent ambulation Patient : No Family History: Family History (Last Reviewed 12/28/20 @ 09:07 by Lexy Moran) Father Diabetes CHF (congestive heart failure) Hypertension CVD (cardiovascular disease) Mother Dementia Stroke Hypertension Son In good health Surgical History: Surgical History (Last Reviewed 12/28/20 @ 09:07 by Lexy Moran) History of cataract extraction History of eye surgery History of left knee surgery History of tonsillectomy Social History: Social History (Last Reviewed 12/28/20 @ 09:07 by Lexy Moran) Alcohol History: Alcohol intake: current Alcohol History Details: Alcohol intake frequency: holiday/special occasion Tobacco History: Smoking Status: Never smoker Substance Use History: Use of substances other than those prescribed or required for medical reasons : No Nutrition Assessment: Recently lost weight without trying: No Eating poorly because of decreased appetite: No Patient : No Smoking status: Never smoker Oncology Screenings - ECOG Performance Status ECOG Performance Status: 0 Home Medications and Allergies Home Medications Medication Instructions Recorded Confirmed Type Lactobacillus rhamnosus GG 1 cap PO DAILY 06/29/20 06/29/20 History [Culturelle] apixaban [Eliquis] 1 tab PO BID 06/29/20 06/29/20 History calcium carbonate-vitamin D3 1 tab PO ONCE 06/29/20 06/29/20 History [Caltrate with Vitamin D3] tafluprost (PF) [Zioptan (PF)] 1 drp OPHTHALMIC (EYE) BEDTIME 06/29/20 06/29/20 History timolol 1 drp OPHTHALMIC (EYE) BID 12/28/20 12/28/20 History Allergies Allergy/AdvReac Type Severity Reaction Status Date / Time lisinopril [LISINOPRIL] Allergy Severe ANGIOEDEMA Verified 09/18/20 06:32 latex [LATEX] Allergy Mild RASH Verified 09/18/20 06:32 Exam Vital signs: Vital Signs Temp 98.2 F 12/28/20 09:03 Pulse 60 12/28/20 09:03 Resp 12 12/28/20 09:03 BP 171/73 H 12/28/20 09:03 Pulse Ox 96 12/28/20 09:03 Intake & Output 12/27/20 12/28/20 12/28/20 18:59 06:59 18:59 Other: Weight 89.1 kg [place] Weight in Grams 40992 Weight 89.1 kg Body Mass Index 34.7 - Constitutional Present: no acute distress - Routine HEENT Exam Head: Present: normal inspection Eye: Present: normal appearance ENT: Present: mucous membranes moist - Routine Neck Exam Present: full ROM - Routine Respiratory Exam Present: CTAB - Routine Cardiovascular Exam Cardiovascular: Present: RRR, S1, S2 - Routine Abdominal Exam Present: soft, nontender - Routine Rectal Exam Patient deferred: digital exam - Routine Extremities Exam Present: nontender - Routine Back/Spine/Pelvis Exam Back/Spine: Present: full ROM - Routine Skin Exam Present: intact - Routine Neurological Exam Present: alert - Detailed Neurological Exam: Coma Scale Eye Opening: Spontaneous (4) - Routine Psychiatric Exam Present: normal affect Data - Labs CBC & Chem 7: 12/28/20 09:10 12/28/20 09:10 Labs: 06/29/20 09:38 CMP [Comprehensive Met. Panel] Routine Complete Blood Count Auto Diff Routine D Dimer Routine Laboratory Last Values WBC 7.6 X10*3/uL (4.8-10.8) 06/29/20 09:38 RBC 4.54 X10*6/uL (4.20-5.50) 06/29/20 09:38 Hgb 13.4 g/dl (12.0-16.0) 06/29/20 09:38 Hct 42.8 % (37-47) 06/29/20 09:38 MCV 94.3 fL (80-98) 06/29/20 09:38 MCH 29.5 pg (27.0-33.0) 06/29/20 09:38 MCHC 31.3 g/dl (31.0-35.0) 06/29/20 09:38 RDW 14.6 % (11.0-16.0) 06/29/20 09:38 Plt Count 234 X10*3/uL (160-400) 06/29/20 09:38 MPV 10.4 fL (9.4-12.3) 06/29/20 09:38 Immature Gran % (Auto) 0.3 % (0.0-0.4) 06/29/20 09:38 Neut % (Auto) 64.3 % (45-73) 06/29/20 09:38 Lymph % (Auto) 21.0 % (20-40) 06/29/20 09:38 [place] % (Auto) 9.1 % (2-11) 06/29/20 09:38 Eos % (Auto) 4.4 % (0-4) H 06/29/20 09:38 Baso % (Auto) 0.9 % (0-2) 06/29/20 09:38 Lymph # (Auto) 1.6 X10*3/uL (1.2-4.9) 06/29/20 09:38 [place] # (Auto) 0.7 X10*3/uL (0.1-1.2) 06/29/20 09:38 Eos # (Auto) 0.3 X10*3/uL (0.0-0.4) 06/29/20 09:38 Baso # (Auto) 0.1 X10*3/uL (0.0-0.2) 06/29/20 09:38 Abs Immat Gran (auto) 0.02 X10*3/uL (0.00-0.03) 06/29/20 09:38 Absolute Neuts (auto) 4.9 X10*3/uL (2.0-8.3) 06/29/20 09:38 Absolute Nucleated RBC 0.000 X10*3/uL (0.0-0.012) 06/29/20 09:38 Nucleated RBC % (auto) 0.0 /100WBC (0.0-0.2) 06/29/20 09:38 D-Dimer < 200 NG/ML 06/29/20 09:38 Sodium 144 mmol/L (135-145) 06/29/20 09:38 Potassium 4.0 mmol/l (3.3-5.1) 06/29/20 09:38 Chloride 104 mmol/L (96-108) 06/29/20 09:38 Carbon Dioxide 34 mmol/L (22-29) H 06/29/20 09:38 Anion Gap 10 (12-20) L 06/29/20 09:38 BUN 17 mg/dL (9-16) H 06/29/20 09:38 Creatinine 0.75 mg/dL (0.5-1.4) 06/29/20 09:38 Estim Creat Clear Calc 73.6 06/29/20 09:38 Estimated GFR > 60 06/29/20 09:38 Random Glucose 73 mg/dL (60-115) 06/29/20 09:38 Calcium 9.6 mg/dL (8.4-10.2) 06/29/20 09:38 Total Bilirubin 0.4 mg/dL (0.0-1.0) 06/29/20 09:38 AST 21 U/L (5-31) 06/29/20 09:38 ALT 25 U/L (0-31) 06/29/20 09:38 Alkaline Phosphatase 61 U/L (39-117) 06/29/20 09:38 Total Protein 6.9 g/dL (6.5-8.0) 06/29/20 09:38 Albumin 4.1 g/dL (3.5-5.0) 06/29/20 09:38 Progress Note: A/P (1) Recurrent pulmonary embolism Problem details: 04/24/2015, 6 months September 2015 Status: Acute Assessment and plan: This is a pleasant 70 year-old lady, who presented in February, with a one week of dyspnea on exertion. She had a CTA ordered by her primary which was positive for a PE. She was started on Lovenox. Then bridged over to Eliquis. She had a previous episode of bilateral PE in April 2015, that appeared unprovoked, though I was concerned that since she had fallen down prior to this, she had injured her right leg so that could have possibly been the precipitating factor. She underwent a hypercoagulable workup at that time which was negative. Since that was her second episode of Pulmonary Embolism, I recommended long-term anticoagulations therapy. She has remained on the Eliquis. That appears to be working well for her. Her d-dimer from June was less than 200. She has had arthroscopic knee surgery. That worked out well. She then had dental extractions, November 18. It healed well. She has had her dentures made. She is clinically stable. D-dimer from today is <200. PLAN: Since she has had two episodes of P pulmonary embolism, she will continue on the Eliquis, on the long-term basis. She will get her Eliquis refilled by Dr. Pino. She will return in 6 months for a followup visit. Will follow-up on the D-dimer at that time. Thank you, CC: Dr. Pino. Dr. Rosen, - Time Spent With Patient Total time spent is greater than 50% in coordination of care (as documented) at patient's floor/unit and/or counseling patient: 25 - 35 minutes
[2020-12-28 09:23] LABS: Basophils Percent Auto 0.5 % (0-2); Eosinophils Absolute Auto 0.5 X10*3/uL (0.0-0.4); Hematocrit 43.4 % (37-47); Hemoglobin 13.6 g/dl (12.0-16.0); Imm Gran Abs Auto 0.03 X10*3/uL (0.00-0.03); Imm Gran Pct Auto 0.4 % (0.0-0.4); Lymphocytes Absolute Auto 1.4 X10*3/uL (1.2-4.9); Mean Corpuscular HGB Conc 31.3 g/dl (31.0-35.0); Mean Corpuscular Hemoglobin 29.4 pg (27.0-33.0); Mean Corpuscular Volume 93.7 fL (80-98); Mean Platelet Volume 10.7 fL (9.4-12.3); Monocytes Absolute Auto 0.6 X10*3/uL (0.1-1.2); Monocytes Percent Auto 8.4 % (2-11); Neutrophils Percent Auto 66.7 % (45-73); Platelet Count 229 X10*3/uL (160-400); Red Blood Count 4.63 X10*6/uL (4.20-5.50); Red Cell Distribution Width 14.6 % (11.0-16.0); White Blood Count 7.5 X10*3/uL (4.8-10.8)
[2020-12-28 09:35] LABS: D Dimer < 200 NG/ML
[2020-12-28 09:49] LABS: Alanine Aminotransferase 21 U/L (0-31); Alkaline Phosphatase 63 U/L (39-117); Anion Gap 10 (12-20); Aspartate Amino Transferase 17 U/L (5-31); Bilirubin Total 0.6 mg/dL (0.0-1.0); Blood Urea Nitrogen 17 mg/dL (9-16); Calcium 9.7 mg/dL (8.4-10.2); Carbon Dioxide 33 mmol/L (22-29); Chloride 103 mmol/L (96-108); Creatinine Clr Calc Pharmacy 74.9; Estimated Glomerular Filt Rate > 60; Glucose Random 75 mg/dL (60-115); Potassium 3.9 mmol/L (3.3-5.1); Sodium 142 mmol/L (135-145); Total Protein 6.7 g/dL (6.5-8.0)
--- NOTE | 2020-12-28 12:48 | MHC.HEMONCMA ---
Pt present to f/u on PE. History reviewed, labs drawn and pt to return in 6 months.
== END | disposition home or self-care (01) ==
LOC: HO.ONC 06-29 09:04
PROVIDERS: PCP Internal Medicine; Visit Provider Internal Medicine Medical Oncology
DX: Z86.711 Personal history of pulmonary embolism (principal); Z79.01 Long term (current) use of anticoagulants
CPT/HCPCS: 36415; 80053; 85025; 85379; 99214

== ENCOUNTER 2024-06-21 07:07 | Outpatient (REF) | payer MEDICARE, SELFPAY ==
[2024-06-21 09:56] LABS: MANUAL DIFF FLAG NO
[2024-06-21 10:07] LABS: Basophils Absolute Auto 0.1 X10*3/uL (0.0-0.2); Basophils Percent Auto 0.7 % (0-2); Eosinophils Absolute Auto 0.4 X10*3/uL (0.0-0.4); Eosinophils Percent Auto 5.9 % (0-4); Hematocrit 42.1 % (37.0-47.0); Hemoglobin 13.3 g/dl (12.0-16.0); Imm Gran Abs Auto 0.01 X10*3/uL (0.00-0.03); Imm Gran Pct Auto 0.1 % (0.0-0.4); Lymphocytes Absolute Auto 1.7 X10*3/uL (1.2-4.9); Lymphocytes Percent Auto 25.2 % (20-40); Mean Corpuscular HGB Conc 31.6 g/dl (31.0-35.0); Mean Platelet Volume 12.1 fL (9.4-12.3); Monocytes Absolute Auto 0.5 X10*3/uL (0.1-1.2); Monocytes Percent Auto 7.8 % (2-11); Neutrophils Absolute Auto 4.1 x10*3/uL (2.0-8.3); Neutrophils Percent Auto 60.3 % (45-73); Platelet Count 189 X10*3/uL (160-400); Red Blood Count 4.43 X10*6/uL (4.20-5.50); Red Cell Distribution Width 15.1 % (11.0-16.0); White Blood Count 6.8 X10*3/uL (4.8-10.8)
[2024-06-21 10:15] LABS: Estimated Average Glucose 114 mg/dL; Hemoglobin A1C 129.6648 umol/L; Hemoglobin A1c % 5.6 % (<6.0); Total Hemoglobin (HGBA1C) 3402.2166 umol/L
[2024-06-21 10:39] LABS: Alanine Aminotransferase 91 U/L (0-31); Albumin Level 3.9 g/dL (3.5-5.0); Alkaline Phosphatase 83 U/L (39-117); Anion Gap 9 (12-20); Aspartate Amino Transferase 55 U/L (5-31); Bilirubin Total 0.7 mg/dL (0.0-1.0); Blood Urea Nitrogen 17 mg/dL (9-16); Calcium 9.7 mg/dL (8.4-10.2); Carbon Dioxide 35 mmol/L (22-29); Chloride 103 mmol/L (96-108); Cholesterol 108 mg/dL (<200); Estimated Glomerular Filt Rate > 60; Glucose Random 90 mg/dL (60-115); HDL Cholesterol 41 mg/dL (>40); HDL Cholesterol 42 mg/dL (>40); LDL Cholesterol Calculated 52 mg/dL (<100); LDL Cholesterol Calculated 53 mg/dL (<100); Magnesium 1.9 mg/dL (1.6-2.6); Potassium 3.4 mmol/L (3.3-5.1); Sodium 144 mmol/L (135-145); Total Protein 6.9 g/dL (6.5-8.0); Triglycerides 72 mg/dL (<150); Triglycerides 74 mg/dL (<150)
[2024-06-21 10:42] LABS: Thyroid Stimulating Hormone 4.24 uIU/mL (0.32-4.0)
[2024-06-21 10:43] LABS: Free T4 (Free Thyroxine) 0.93 ng/dL (0.71-1.85); Vitamin D 25-OH Total 44.4 ng/mL (>30)
[2024-06-21 11:01] LABS: Folate 10.8 ng/mL (> or = 4.0); Vitamin B12 537 pg/mL (200-900)
== END 2024-06-21 07:08 | disposition home or self-care (01) ==
LOC: HO.HMGCLDS 07:07
PROVIDERS: Nurse Practitioner; PCP Internal Medicine; Visit Provider Internal Medicine
DX: E78.00 Pure hypercholesterolemia, unspecified (principal); I10 Essential (primary) hypertension; Z13.1 Encounter for screening for diabetes mellitus
CPT/HCPCS: 36415; 80053; 80061; 82306; 82607; 82746; 83036; 83735; 84439; 84443; 85025

== ENCOUNTER 2024-07-19 08:15 | Outpatient (REF) | payer MEDICARE, SELFPAY ==
--- NOTE | ~2024-07-19 | US_ITS ---
EXAMINATION: US ABDOMEN COMPLETE CLINICAL INFORMATION: Other specified abnormal findings of blood chemistry. Elevated LFTs. COMPARISON: CT abdomen and pelvis 02/12/2018. Renal ultrasound 12/12/2008. TECHNIQUE: Real-time imaging of the abdominal viscera. FINDINGS: PANCREAS: Normal. ABDOMINAL AORTA: The proximal, mid, and distal segments are normal in caliber. INFERIOR VENA CAVA: Visualized portions are normal. LIVER: The liver is normal in size. The liver contour is normal. Increased echogenicity of the liver parenchyma, this can be seen in the setting of hepatic steatosis or liver parenchymal disease. No focal hepatic lesion. There is no intrahepatic biliary duct dilatation seen. GALLBLADDER: The gallbladder is physiologically distended. Multiple mobile gallstones are present. No evidence of gallbladder wall thickening or pericholecystic fluid. COMMON BILE DUCT: Normal in caliber measuring 0.6 cm in diameter. RIGHT KIDNEY: No hydronephrosis. No renal calculi or focal parenchymal lesions. The kidney measures 11.4 cm in maximum dimension. Echogenic renal cortex suggest chronic medical renal disease. LEFT KIDNEY: No hydronephrosis. No renal calculi or focal parenchymal lesions. The kidney measures 11.0 cm in maximum dimension. Echogenic renal cortex suggest chronic medical renal disease. SPLEEN: Normal. The spleen measures 8.5 cm in maximum dimension. FREE FLUID: None. US/US abdomen complete IMPRESSION: 1. Increased echogenicity of the liver parenchyma, this can be seen in the setting of hepatic steatosis or liver parenchymal disease. 2. Cholelithiasis without ultrasound evidence of acute cholecystitis. 3. Bilateral echogenic renal cortices suggesting chronic medical renal disease. Electronically signed by: Milton Vicente MD 07/24/2024 07:07 PM BIMAL
[2024-07-19 11:00] LABS: Alanine Aminotransferase 72 U/L (0-31); Albumin Level 3.7 g/dL (3.5-5.0); Alkaline Phosphatase 76 U/L (39-117); Anion Gap 10 (12-20); Aspartate Amino Transferase 53 U/L (5-31); Bilirubin Total 0.6 mg/dL (0.0-1.0); Blood Urea Nitrogen 17 mg/dL (9-16); Calcium 9.8 mg/dL (8.4-10.2); Carbon Dioxide 32 mmol/L (22-29); Chloride 103 mmol/L (96-108); Estimated Glomerular Filt Rate > 60; Glucose Random 89 mg/dL (60-115); Potassium 3.4 mmol/L (3.3-5.1); Sodium 142 mmol/L (135-145); Total Protein 6.8 g/dL (6.5-8.0)
[2024-07-19 11:04] LABS: Free T4 (Free Thyroxine) 1.04 ng/dL (0.71-1.85); Thyroid Stimulating Hormone 3.23 uIU/mL (0.32-4.0)
[2024-07-19 11:07] LABS: HBc Num1 0.08 S/CO (0.00-0.79); HBsAGNum1 0.31 S/CO (0.00-0.99); Hepatitis B Core Antibody Nonreactive (Nonreactive); Hepatitis B Surface Antigen Negative (Negative); ~HepC Num1 0.08 S/CO (0.00-0.79); ~Hepatitis B Surface Antibody REACTIVE (Nonreactive); ~Hepatitis C Antibody Nonreactive (Nonreactive)
== END 2024-07-19 08:16 | disposition home or self-care (01) ==
LOC: HO.HMGCX 08:15
PROVIDERS: PCP Internal Medicine; Visit Provider Internal Medicine
DX: R79.89 Other specified abnormal findings of blood chemistry (principal); I10 Essential (primary) hypertension
CPT/HCPCS: 36415; 76700; 80053; 84439; 84443; 86704; 86706; 86803; 87340

== ENCOUNTER 2024-07-20 13:40 | Outpatient (AMB) | payer MEDICARE, SELFPAY ==
[2024-07-20 13:41] VITALS: BP 110/70; PULSE 66; BMI 31.8
--- NOTE | 2024-07-20 13:41 | A.OFFVIS_ITS ---
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: No Accompanied by: Self / Same As Patient Allergies lisinopril [LISINOPRIL] Allergy (Severe, Verified 04/22/24 10:53) ANGIOEDEMA latex [LATEX] Allergy (Mild, Verified 04/22/24 10:53) RASH Medication List - Last Reconciled 07/20/24 by Tej Shelton MD acetaminophen 650 mg (2 x 325 mg) PO Q6H PRN amlodipine 5 mg See Protocol PO DAILY apixaban (Eliquis) 5 mg PO BID atorvastatin 80 mg PO DAILY carvedilol 6.25 mg PO BID CPAP (CPAP Machine/Device) As directed hydrochlorothiazide 25 mg PO DAILY multivitamin with minerals (DAILY VITAMIN FORMULA-MINERALS tablet) 1 tab PO BEDTIME tafluprost (PF) 0.0015% (Zioptan (PF)) 1 drp ophthalmic (eye) BEDTIME timolol maleate 0.5% 1 drp ophthalmic (eye) BID triamcinolone acetonide 0.1% 1 appl topical BID-TID HPI Comments Details: Lee Ann comes for follow-up. She continues to have intermittent precordial chest discomfort which is not exertional in nature. Overall otherwise feeling well. As you may recall her cardiac catheterization had shown normal coronary arteries. Her blood pressures been well controlled at this point time. [facility] Medical History Palpitations Sleep apnea Hiatal hernia Colon cancer screening Osteopenia Pubic bone fracture Hypertension Anxiety Pancreatic lesion Obstructive sleep apnea Peripheral vascular disease GERD (gastroesophageal reflux disease) Obesity (BMI 30-39.9) Glaucoma Osteoarthritis Thyroid nodule Hypercholesterolemia Recurrent pulmonary embolism Surgical History S/P cardiac catheterization H/O colonoscopy History of left knee surgery History of eye surgery History of tonsillectomy History of cataract extraction Family History Father Diabetes CHF (congestive heart failure) Hypertension CVD (cardiovascular disease) Mother Dementia Stroke Hypertension Son In good health Other Mental health disorder Social History Household Members: Spouse Housing: House Do you presently have visiting nurse or other home services: No Alcohol intake: never Patient Tobacco Use Status: Never used Tobacco e-Cigarette/Vaping Use: Never Used Second Hand Smoke Exposure: No service: No Current occupational status: retired Cognitive needs: No Hearing needs: No Vision needs: Yes Review of Systems Const Denies chills, Denies fatigue, Denies fever(s), Denies frequent falls, Denies weakness, Denies weight gain and Denies weight loss ENT Denies dizziness Card Denies chest pain, Denies leg edema, Denies lightheadedness, Denies palpitations, Denies dyspnea and Denies dyspnea on exertion Resp Denies cough, Denies dyspnea and Denies dyspnea on exertion GI Denies hematochezia Musc Denies abnormal gait, Denies muscle weakness, Denies numbness, Denies radiating pain into limb and Denies tingling Neuro Denies abnormal gait, Denies dizziness, Denies frequent falls, Denies numbness, Denies tingling and Denies weakness Endo Denies fatigue and Denies palpitations Physical Exam Vital Signs: Last Vital Signs Pulse 66 07/20/24 13:41 BP 110/70 07/20/24 13:41 BMI result Body Mass Index 31.8 Const General: cooperative, comfortable, no acute distress, alert, awake and well groomed Nutritional Appearance: obese Orientation/consciousness: patient oriented x3 Neck Neck: Yes trachea midline, Yes supple and Yes no JVD Resp Effort & Inspection: normal respiratory effort Auscultation: clear to auscultation bilaterally Cardio Jugular venous distension: no JVD Rate: regular rate Rhythm: regular rhythm Heart sounds: S1 normal heart sound present, S2 normal heart sound present, no click, no gallops and no murmurs Skin General skin exam: no rashes or lesions noted Neuro General: patient oriented x3 and no focal motor deficits Extrem General: Yes no clubbing, cyanosis or edema Psych Appearance: grossly normal Affect: Anxious affect present Assessment & Plan Assessment & Plan (1) Hypertension: Code(s): I10 - Essential (primary) hypertension Category: Medical Plan: Noncardiac chest pain with normal coronary arteries. Unlikely her chest pain represents related to any myocardial ischemia. Good prognosis with this was discussed. Continue aggressive risk factor modification. Continue current blood pressure control which is well optimized advised to monitor blood pressure intermittently at home. Goal blood pressure less than 130/84 at all times. Continue statin therapy with target goal LDL less than 100 mg/dL. She is on Eliquis therapy for recurrent pulmonary embolism which will be continued and follow through your office. Will follow up in the clinic if need be. Thank you for allowing me to partake in his care Coding Level of Care Code Est Pt Level 3 (84960) Complex EM visit Add On G2211 Diagnoses Hypertension I10
== END 2024-07-20 13:59 | disposition home or self-care (01) ==
PROVIDERS: PCP Internal Medicine; Visit Provider Internal Medicine Cardiovascular Disease
DX: I10 Essential (primary) hypertension (principal)
CPT/HCPCS: 99213; G2211

== ENCOUNTER → 2024-07-20 13:40 | Outpatient (BNVA) | payer MEDICARE, SELFPAY | PROVIDERS: PCP Internal Medicine; Visit Provider Internal Medicine Cardiovascular Disease | DX: I10 Essential (primary) hypertension (principal); R07.9 Chest pain, unspecified | CPT/HCPCS: 99212 ==

== ENCOUNTER 2024-08-12 14:44 | Outpatient (AMB) | payer MEDICARE, SELFPAY ==
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
[2024-08-12 14:50] VITALS: BP 140/74; PULSE 70; O2SAT 94; BMI 31.5
[2024-08-12 15:28] VITALS: BP 130/80
--- OUTSIDE RECORDS SUMMARY | 2024-08-17 10:44 | XMS_ITS ---
Author Organization [facility] Address [address] [place] [address] Care Team Providers Care Press Tender Incendiary Grenade Name Role Phone Danika Pino MD Primary Care Provider Raul Mckeon [phone] ALLERGIES Allergen (clinical drug ingredient) Drug/Non Drug Allergy documented on EMR Reaction Allergy Type Onset Date Status lisinopril Lisinopril Unknown Drug Allergy Activ e REASON FOR VISIT Patient presents today for fecal abnormalities MEDICATIONS Medication SIG (Take, Route, Frequency, Duration) Notes Start Date End Date Status Timolol Maleate 0.5 % 1 drop into affect ed eye Ophthalmic Once a day Active hydroCHLOROthiazide 25 MG 1 tablet in th e morning Orally Once a day for 30 day(s) Active Eliquis 5 MG 1 tablet Orally Twic e a day for 30 day(s) Active Omeprazole 20 MG 1 capsule 30 minutes before morning meal Orally Once a day for 30 day(s) Active Zioptan 0.0015% Acti ve Dorzolamide HCl-Timolol Mal Active Calcium Active Vitamin D 2000iu Act quan Amlodipine & Diet Manage Pro d 5mg Active SOCIAL HISTORY Tobacco Use: Social History Observation Description Date Details (start date - stop date) Never Smoker NA - NA Sex Assigned At : Social History Observation Description Sex Assigned At Unknown Tobacco Use/Smoking Question Answer Notes Patient is a nonsmoker Alcohol Screen Question Answer Notes Did you have a drink containing alcohol in the p ast year? No Points 0 Interpretation Negative PROBLEMS Problem Type ICD Code Onset Dates Problem Status W/U Status Risk SNOMED Code Notes Problem Positive colorectal cancer screening using Cologuard test (R19.5) Active confirmed Abnormal feces ([id number]) VITAL SIGNS BMI 35.31 kg/m2 01/06/2024 Blood pressure systolic 000 mm Hg 01/06/20 24 Blood pressure diastolic 00 mm Hg 024 Height 63 in 01/06/2024 Temperature 96.8 degrees Fahrenheit 01/06/20 24 Weight 199 lb 6 oz lbs 01/06/2024 Encounters Encounter Location Date Provider Diagnosis [facility] [address] [place] [address] 01/06/2024 Raul Napoles Positive colorectal cancer screening using Cologuard test R19.5 ASSESSMENTS Encounter Date Diagnosis Assessment Notes Treatment Notes Treatment Clinical Notes 01/06/2024 Positive colorectal cancer screening using Cologuard test (ICD-10 - R19.5) Stop the Eliquis for 3 days before the colonoscopy and check with Dr. Pino about possibly needing Lovenox injections while off the Eliquis. Do not use the Hydrochlorothiaizide the day before nor on the day of the colonoscopy. PLAN OF TREATMENT Treatment Notes Assessment Notes Positive colorectal cancer s creening using Cologuard test Stop the Eliquis for 3 days before the colonoscopy and check with Dr. Pino about possibly needing Lovenox injections while off the Eliquis. Do not use the Hydrochlorothiaizide the day before nor on the day of the colonoscopy. Future Test Test Name Order Date COLONOSCOPY 01/06/2024 Next Appt Details Follow Up: prn, Reason: Progress Notes * Examination Category Sub-Category Detail Notes General Examination GENERAL APPEARANCE: pleasant , well nourished, well developed, in no acute distress EYES: sclera non-icteric NECK/THYROID: no cervical lymphade nopathy, neck supple HEART: S1, S2 normal LUNGS: clear to auscultatio n bilaterally ABDOMEN: normal bowel sounds, no guarding or rigidity, no hepatosplenomegaly, no masses palpable, soft, nontender, nondistended. NEUROLOGIC: alert and oriented SKIN: nonjaundiced, no spi pattie angiomata. EXTREMITIES: no edema ORAL CAVITY: mucosa moist
--- OUTSIDE RECORDS SUMMARY | 2024-08-17 10:44 | XMS_ITS ---
Author Organization [facility] Address [address] [place] [address] Care Team Providers Care Fight Manager Name Role Phone Danika Pino MD Primary Care Provider Raul Mckeon [phone] REASON FOR VISIT positive colon ca screening using cologuard PROBLEMS Problem Type ICD Code Onset Dates Problem Status W/U Status Risk SNOMED Code Notes Problem Diverticulosis of large intestine without perforation or abscess without bleeding (K57.30) Active confirmed Diverticul ar disease of colon ([id number]) Encounters Encounter Location Date Provider Diagnosis [facility] Outpatient [address] [place] [phone] 02/17/2024 Raul Napoles Encounter for scre ening colonoscopy Z12.11 ; Heme + stool R19.5 ; Diverticulosis of large intestine without perforation or abscess without bleeding K57.30 and Other hemorrhoids K64.8 ASSESSMENTS Encounter Date Diagnosis Assessment Notes Treatment Notes Treatment Clinical Notes 02/17/2024 Encounter for screening colonoscopy (ICD-10 - Z12.11) 02/17/2024 Heme + stool (ICD-10 - R19.5) 02/17/2024 Diverticulosis of large intestine without perforation or abscess without bleeding (ICD-10 - K57.30) 02/17/2024 Other hemorrhoids (ICD-10 - K64.8) PLAN OF TREATMENT No Information
--- OUTSIDE RECORDS SUMMARY | 2024-08-17 10:44 | XMS_ITS ---
Author Organization [facility] Address [address] [place] [id number] Care Team Providers Care Chucking Machine Set Up Operator Tool Name Role Phone Danika Pino MD Primary Care Provider Raul Mckeon [phone] REASON FOR VISIT Patient presents today for FECAL ABNORMALITIES Encounters Encounter Location Date Provider Diagnosis [facility] [address] [place] [phone] 02/19/2024 Raul Napoles PLAN OF TREATMENT No Information
--- OUTSIDE RECORDS SUMMARY | 2024-08-17 10:45 | XMS_ITS | Patient Health Record ---
Author Organization [facility] Address [address] [place] [address] Care Team Providers Care V Belt Inspector Name Role Phone Danika Pino MD Primary Care Provider Raul Mckeon [phone] ALLERGIES Allergen (clinical drug ingredient) Drug/Non Drug [...] Active confirmed Diverticul ar disease of colon (700707925) Problem Positive colorectal cancer screening using Cologuard test (R19.5) Active confirmed Abnormal feces (024328690) VITAL SIGNS Temperature 96.8 degrees Fahrenheit 01/06/2024 Blood pressure diastolic 00 mm Hg 01/06/2024 Height 63 in 01/06/2024 Blood pressure systolic 000 mm Hg 01/06/2024 Weight 199 lb 6 oz lbs 01/06/2024 BMI 35.31 kg/m2 01/06/2024 Encounters Encounter Location Date Provider Diagnosis [facility] [place] [address] [place] [phone] 02/17/2024 Raul Napoles Encounter for screen ing colonoscopy Z12.11 ; Heme + stool R19.5 ; Diverticulosis of large intestine without perforation or abscess without bleeding K57.30 and Other hemorrhoids K64.8 [facility] [address] [place] [address] 02/19/2024 Raul Napoles [facility] [address] [place] [phone] 01/06/2024 Raul Napoles Positive colorectal cancer screening [...] Insured Coverage Start Date Coverage End Date [facility] [address] [place] [address] [phone] [id number] TANIA DE LA GARZA Self - patient is the insured MEDICAL (GENERAL) HISTORY Medical History History ICD Code Colonoscopy 02-19-2005--neg except divert iculosis and internal hemorrhoids Hypertension Denies OH,DM,CVA,Lung disease,renal dise ase Glaucoma GERD-upper GI series [...]
== END 2024-08-12 15:55 | disposition home or self-care (01) ==
PROVIDERS: PCP Internal Medicine; Visit Provider Internal Medicine
DX: Z00.00 Encounter for general adult medical examination without abnormal findings (principal); I21.4 Non-ST elevation (NSTEMI) myocardial infarction; I26.99 Other pulmonary embolism without acute cor pulmonale; E66.9 Obesity, unspecified; Z68.31 Body mass index [BMI] 31.0-31.9, adult; R73.02 Impaired glucose tolerance (oral); E78.00 Pure hypercholesterolemia, unspecified; K21.9 Gastro-esophageal reflux disease without esophagitis; G47.33 Obstructive sleep apnea (adult) (pediatric); I10 Essential (primary) hypertension

== ENCOUNTER → 2024-08-12 14:44 | Outpatient (BNVA) | payer MEDICARE, SELFPAY | PROVIDERS: PCP Internal Medicine; Visit Provider Internal Medicine | DX: Z00.00 Encounter for general adult medical examination without abnormal findings (principal); I21.4 Non-ST elevation (NSTEMI) myocardial infarction; R73.02 Impaired glucose tolerance (oral); E78.00 Pure hypercholesterolemia, unspecified; E66.9 Obesity, unspecified; K21.9 Gastro-esophageal reflux disease without esophagitis; I10 Essential (primary) hypertension; I26.99 Other pulmonary embolism without acute cor pulmonale; G47.33 Obstructive sleep apnea (adult) (pediatric) | CPT/HCPCS: 96127; 99397 ==

== ENCOUNTER 2024-08-19 10:00 | Outpatient (RCR) | payer MEDICARE, SELFPAY | END 2024-08-19 14:27 | disposition home or self-care (01) | LOC: HO.CR 10:00 | PROVIDERS: PCP Internal Medicine; Visit Provider Nurse Practitioner | DX: I24.1 Dressler's syndrome (principal) | CPT/HCPCS: 93798 ==

== ENCOUNTER 2024-11-07 10:57 | Outpatient (REF) | payer MEDICARE, SELFPAY ==
--- OUTSIDE RECORDS SUMMARY | 2024-11-07 12:56 | XMS_ITS ---
Author Organization [facility] Address [address] [place] [phone] Care Team Providers Care Digital Forensic Analyst Name Role Phone Danika Pino MD Primary Care Provider Raul Mckeon [phone] REASON FOR VISIT Patient presents today for FECAL ABNORMALITIES Encounters Encounter Location Date Provider Diagnosis [facility] [address] [place] [phone] 02/19/2024 Raul Napoles PLAN OF TREATMENT No Information
--- OUTSIDE RECORDS SUMMARY | 2024-11-07 12:56 | XMS_ITS ---
Author Organization [facility] Address [address] [place] [address] Care Team Providers Care White Lead Grinder Name Role Phone Danika Pino MD Primary Care Provider Raul Mckeon [phone] ALLERGIES Allergen (clinical drug ingredient) Drug/Non Drug Allergy documented on EMR Reaction Allergy Type Onset Date Status Lisinopril Unknown Drug Allergy Active REASON FOR VISIT Patient presents today for [...] Cologuard test (R19.5) Active confirmed Abnormal feces (281286692) VITAL SIGNS Temperature 96.8 degrees Fahrenheit 05/01/20 24 Blood pressure systolic 000 mm Hg 01/06/20 24 Blood pressure diastolic 00 mm Hg 024 Height 63 in 01/06/2024 Weight 199 lb 6 oz lbs 01/06/2024 BMI 35.31 kg/m2 01/06/2024 Encounters Encounter Location Date Provider Diagnosis [facility] [address] [place] [address] 01/06/2024 Raul Napoles Positive colorectal cancer screening [...]
--- OUTSIDE RECORDS SUMMARY | 2024-11-07 12:56 | XMS_ITS | Patient Health Record ---
Author Organization [facility] Address [address] [place] [address] Care Team Providers Care Staffing Operations Manager Name Role Phone AlvarezGabielizabeth Primary Care Provider Hina Ziegler Unavailable [phone] Allergies Allergen (clinical drug ingredient) Drug/Non Drug Allergy documented on EMR Reaction Allergy Type Onset Date Status Lisinopril swelling, itchy, swollen face Drug Allergy Active Latex Latex Unknown Allergy Active Reason For Referral No Information Medications Medication SIG (Take, Route, Frequency, Duration) Notes Start Date End Date Status amLODIPine Besylate 5 MG as directed Ora lly Once a day Active Calcium 500 + D Acti ve hydroCHLOROthiazide 12.5 MG 1 capsule in the morning Orally Once a day for 30 day(s) Active Eliquis 5 MG as directed Orally Active Vitamin D3 Active Timolol Maleate 0.5 % 1 drop into affected eye Ophthalmic Once a day Active Dorzolamide HCl-Timolol Mal 22.3-6.8 MG/ML (Prior Auth: Rx Ref#:[id number]) Ophthalmic for 90 Unknown Probiotic Active Baby Aspirin Unknown Warfarin Sodium Not- Taking Cosopt 22.3-6.8 MG/ML 1 drop into affected eye Ophthalmic Twice a day Not-Taking Zioptan 0.0015 % 1 drop into affected eye Ophthalmic Once a day Active Social History Tobacco Use: Social History Observation Description Date Details (start date - stop date) Never Smoker NA - NA Tobacco Use/Smoking Question Answer Notes Are you a: nonsmoker Additional Findings: Tobacco Non-User Current no n-smoker Alcohol Screen Question Answer Notes Did you have a drink containing alcohol in the p ast year? No Points 0 Interpretation Negative Tobacco use other than smoking: Question Answer Notes Are you an other tobacco user? No Problems Problem Type SNOMED Code ICD Code Onset Dates Problem Status W/U Status Risk Notes Problem [id number] Hallux valgus (acquired), left foot (M20.12) Active confirmed Problem [id number] Hallux valgus (acquired), right foot (M20.11) Active confirmed Problem 214373716 Hammer toe of right foot (M20.41) Active confirmed Problem 152515484 Hammer toe of left foot (M20.42) Active confirmed Plan Of Treatment Pending Test Test Name Order Date X ray : Foot, left 3V 03/18/2022 X ray : Foot, right 3V 03/18/2022 [id number] NAIL, 6 OR MORE 12/04/2015 [id number] NAIL, 6 OR MORE 09/04/2015 [id number] Destruction, 1-14 09/04/2015 [id number] Destruction, 1-14 09/25/2011 90876-[id number] Destruction, 1-14 05/31/2012 67960, J0702- Neuroma/Injection 01/26/20 12 Insurance Providers Payer Name Payer Address Payer Phone Subscriber Number Group Number Insured Name Patient Relationship to Insured Coverage Start Date Coverage End Date BlueCare 65 Medicare Preferred [address] [place] [address] [phone] [id number] Lee Ann Love Self - patient is the insured Medical (General) History Medical History History ICD Code mumps measles hypertension glaucoma chicken pox Cataracts Arthritis Back,Hip,and Knee pain Broken bones Glaucoma High blood pressure Reflux ( GERD) Pulmonary embolism Surgical History Surgery Date(Month/Year) cataract surgery 2010,01/11/2015 Dental bone graft 11/22/2014 Hospitalization History Reason Date(Month/Year) Went to [facility] [place] for allergic reaction to Lisinopril. 02/2012
--- OUTSIDE RECORDS SUMMARY | 2024-11-07 12:56 | XMS_ITS | Patient Health Record ---
Author Organization [facility] Address [address] [place] [address] Care Team Providers Care Forest Fire Control Officer Name Role Phone Danika Pino MD Primary Care Provider Raul Mckeon [phone] ALLERGIES Allergen (clinical drug ingredient) Drug/Non Drug Allergy documented on EMR Reaction Allergy Type Onset Date Status Lisinopril Unknown Drug Allergy Active REASON FOR REFERRAL No Information MEDICATIONS Medication [...] Active confirmed Diverticul ar disease of colon (679517181) Problem Positive colorectal cancer screening using Cologuard test (R19.5) Active confirmed Abnormal feces (150386003) VITAL SIGNS Temperature 96.8 degrees Fahrenheit 01/06/2024 Blood pressure diastolic 00 mm Hg 01/06/2024 Height 63 in 01/06/2024 Blood pressure systolic 000 mm Hg 01/06/2024 Weight 199 lb 6 oz lbs 01/06/2024 BMI 35.31 kg/m2 01/06/2024 Encounters Encounter Location Date Provider Diagnosis [facility] [place] Out[place] [address] [place], [place] [phone] 02/17/2024 Raul Napoles Encounter for screen ing colonoscopy Z12.11 ; Heme + stool R19.5 ; Diverticulosis of large intestine without perforation or abscess without bleeding K57.30 and Other hemorrhoids K64.8 [facility] [address] [place] [address] 02/19/2024 Raul Napoles [facility] [address] [place] [phone] 01/06/2024 Raul Napoles Positive colorectal cancer screening [...] Insured Coverage Start Date Coverage End Date [facility] [address] [place] [address] [id number] TANIA DE LA GARZA Self - patient is the insured MEDICAL (GENERAL) HISTORY Medical History History ICD Code Colonoscopy 02-19-2005--neg except divert iculosis and internal hemorrhoids Hypertension Denies HI,DM,CVA,Lung disease,renal dise ase Glaucoma GERD-upper GI series [...]
--- OUTSIDE RECORDS SUMMARY | 2024-11-07 12:56 | XMS_ITS ---
Author Organization [facility] Address [address] [place] [address] Care Team Providers Care Political Analyst Name Role Phone Danika Pino MD Primary Care Provider Raul Mckeon [phone] REASON FOR VISIT positive colon ca screening using cologuard PROBLEMS Problem Type ICD Code Onset Dates Problem Status W/U Status Risk SNOMED Code Notes Problem Diverticulosis of large intestine without perforation or abscess without bleeding (K57.30) Active confirmed Diverticul ar disease of colon (217049650) Encounters Encounter Location Date Provider Diagnosis [facility] [place] [address] [place], [place] [phone] 02/17/2024 Raul Napoles Encounter for scre ening [...]
[2024-11-07 13:22] LABS: Anion Gap 9 (12-20); Blood Urea Nitrogen 19 mg/dL (9-16); Calcium 10.6 mg/dL (8.4-10.2); Carbon Dioxide 35 mmol/L (22-29); Chloride 103 mmol/L (96-108); Estimated Glomerular Filt Rate > 60; Glucose Random 66 mg/dL (60-115); Potassium 3.6 mmol/L (3.3-5.1); Sodium 143 mmol/L (135-145)
== END 2024-11-07 10:58 | disposition home or self-care (01) ==
LOC: HO.HMGCLDS 10:57
PROVIDERS: PCP Internal Medicine; Visit Provider Internal Medicine
DX: K80.20 Calculus of gallbladder without cholecystitis without obstruction (principal)
CPT/HCPCS: 36415; 80048

== ENCOUNTER 2024-11-17 09:21 | Outpatient (AMB) | payer MEDICARE, SELFPAY ==
[2024-11-17 09:37] VITALS: BP 122/62; PULSE 64; O2SAT 98; BMI 30.8
--- NOTE | 2024-11-17 09:37 | MHC.PC.OV ---
Vital Signs 11/17/24 09:37 Height 5 ft 3 in Weight 174 lb BMI 30.8 BP 122/62 Blood Pressure Location Lt brachial Position Sitting Pulse 64 Pulse Source Pulse Oximeter Pulse Oximetry (%) 98 Oxygen Delivery Method Room Air Intake Visit Reasons: THERESA< HTN Allergies lisinopril [LISINOPRIL] Allergy (Severe, Verified 11/17/24 09:37) ANGIOEDEMA latex [LATEX] Allergy (Mild, Verified 11/17/24 09:37) RASH Medication List - Last Reconciled 11/17/24 by Danika Pino MD acetaminophen 650 mg (2 x 325 mg) PO Q6H PRN amlodipine 5 mg See Protocol PO DAILY apixaban (Eliquis) 5 mg PO BID atorvastatin 80 mg PO DAILY calcium carbonate (Calcium 600) 600 mg PO DAILY carvedilol 6.25 mg PO BID cholecalciferol (vitamin D3) 25 mcg PO DAILY CPAP (CPAP Machine/Device) As directed hydrochlorothiazide 25 mg PO DAILY tafluprost (PF) 0.0015% (Zioptan (PF)) 1 drp ophthalmic (eye) BEDTIME timolol maleate 0.5% 1 drp ophthalmic (eye) BID triamcinolone acetonide 0.1% 1 appl topical BID-TID Tobacco use date assessed: 11/17/24 Fall risk assessment: No Falls in past year Last assessed Fall Risk: 11/17/24 Dental Screening Dental Screen Date: 11/17/24 Did you have a dental visit in the last 12 months?: Yes Did you have a dental problem in the last 6 months where you did not have access to dental care?: No Was dental information given to patient?: Patient has dentist HPI THERESA< HTN HPI Details 74-year-old obese female with multiple medical problems hypercholesterolemia GERD obstructive sleep apnea on the CPAP hypertension recurrent pulmonary embolism on anticoagulation coronary artery disease impaired glucose tolerance fatty liver coming in for follow-up. Patient has been doing fine this time no nausea no vomiting no fevers no coughs no colds no bowel bladder symptoms. [facility] Medical History Palpitations Sleep apnea Hiatal hernia Colon cancer screening Osteopenia Pubic bone fracture Hypertension Anxiety Pancreatic lesion Obstructive sleep apnea Peripheral vascular disease GERD (gastroesophageal reflux disease) Obesity (BMI 30-39.9) Glaucoma Osteoarthritis Thyroid nodule Hypercholesterolemia Recurrent pulmonary embolism Surgical History S/P cardiac catheterization H/O colonoscopy History of left knee surgery History of eye surgery History of tonsillectomy History of cataract extraction Family History Father Diabetes CHF (congestive heart failure) Hypertension CVD (cardiovascular disease) Mother Dementia Stroke Hypertension Son In good health Other Mental health disorder Social History Household Members: Spouse Housing: House Do you presently have visiting nurse or other home services: No Alcohol intake: never Patient Tobacco Use Status: Never used Tobacco Tobacco use type: Cigarette e-Cigarette/Vaping Use: Never Used Second Hand Smoke Exposure: No service: No Current occupational status: retired Cognitive needs: No Hearing needs: No Vision needs: Yes Questionnaire PHQ-9 Over the last 2 weeks, how often have you been bothered by any of the following problems? 1. Little interest or pleasure in doing things: not at all 2. Feeling down, depressed, or hopeless: not at all 3. Trouble falling or staying asleep, or sleeping too much: not at all 4. Feeling tired or having little energy: not at all 5. Poor appetite or overeating: not at all 6. Feeling bad about yourself - or that you are a failure or have let yourself or your family down: not at all 7. Trouble concentrating on things, such as reading the newspaper or watching television: not at all 8. Moving or speaking so slowly that other people could have noticed. Or the opposite - being so fidgety or restless that you have been moving around a lot more than usual: not at all 9. Thoughts that you would be better off or of hurting yourself in some way: not at all Total score: 0 Depression Screening Interpretation: Negative Depression Screening Done: Yes Source: Developed by Drs. Raul Estes, Va Stone, Sunny Mosqueda and colleagues, with an educational diana from [employer]. Thrive Questionnaire Date Thrive assessed: 11/17/24 I am a: Patient What is your living situation today?: I have a steady place to live Within the past 12 months, did the food you bought not last and you didn't have the money to get more?: Never true Within the past 12 months, did you worry whether your food would run out before you got money to buy more?: Never true Do you have trouble paying for medicines?: No Do you have trouble getting transportation to medical appointments?: No Do you have trouble paying your heating and electricity bill?: No Do you have trouble taking care of your child, family member or friend?: Yes Do you have trouble with day-to-day activities such as bathing, preparing meals, shopping, managing finances, etc.?: No Are you currently unemployed and looking for a job?: No Are you interested in more education?: Yes Please select the resources that you would like help with: Care for elder or disabled Currently or been in a relationship where the following occur: No concerns reported THRIVE Score: 0 AUDIT C Alcohol Use Questionnaire (AUDIT-C) 1. How often do you have a drink containing alcohol?: Never 3. How often do you have six or more drinks on one occasion?: Never Total Score: 0 ARNIE-7 AMB Questionnaire ARNIE-7 Date ARNIE - 7 assessed: 11/17/24 Feeling nervous, anxious, or on edge: 1 = Several days Not being able to stop or control worryin = Not at all Worrying too much about different things: 1 = Several days Trouble relaxin = Not at all Being so restless that it is hard to sit still: 0 = Not at all Becoming easily annoyed or irritable: 1 = Several days Feeling afraid as if something awful might happen: 0 = Not at all Total ARNIE-7 score (0-4 normal; 5-9 mild; 10-14 moderate; 15-21 severe): 3 Source: Developed by Drs. Raul Estes, Va Stone, Sunny Mosqueda and colleagues, with an educational diana from [employer]. ARNIE-7 Assessment Billing ARNIE-7 Assessment Tool: ARNIE-7 Assessment 06780 Physical exam (Primary Care) Vital Signs: Last Vital Signs Pulse 64 11/17/24 09:37 BP 122/62 11/17/24 09:37 Pulse Ox 98 11/17/24 09:37 Oxygen Delivery Method Room Air 11/17/24 09:37 BMI result Body Mass Index 30.8 Tobacco/Smoking Status: Tobacco use Status Tobacco use date assessed 11/17/24 11/17/24 09:45 Patient Tobacco Use Status Never used Tobacco 11/17/24 09:45 Tobacco use type Cigarette 11/17/24 09:45 e-Cigarette/Vaping Use Never Used 11/17/24 09:45 PHQ-9: PHQ-9 Score PHQ-9: Total score 0 11/17/24 09:49 Depression Screening Interpretation: Negative Thrive Assessment: Date of Thrive Assessment Date Thrive assessed 11/17/24 11/17/24 09:45 Currently or been in a relationship where the following occur: No concerns reported Const General: alert; No acute distress Eyes Conjunctivae: conjunctivae normal Resp Auscultation: clear to auscultation bilaterally Cardio Rate: regular rate Rhythm: regular rhythm GI Inspection: Yes normal to inspection Extrem General: Yes normal to inspection and No edema Coding Level of Care Code Est Pt Level 4 (00086) Complex EM visit Add On G2211 Diagnoses Hypercholesterolemia E78.00 Obesity (BMI 30-39.9) E66.9 Gastroesophageal reflux disease without esophagitis K21.9 Esophagitis presence: without esophagitis Obstructive sleep apnea G47.33 Primary hypertension I10 Hypertension type: primary hypertension Recurrent pulmonary embolism I26.99 Anxiety, generalized F41.1 Hepatic steatosis K76.0 Calculus of gallbladder without cholecystitis without obstruction K80.20 Cholelithiasis location: gallbladder Cholecystitis presence: without cholecystitis Biliary obstruction: without biliary obstruction Additional Codes ARNIE-7 Assessment Billing - ARNIE-7 Assessment Tool: ARNIE-7 Assessment 74976 ([id number]) Assessment & Plan Assessment & Plan (1) Hypercholesterolemia: Code(s): E78.00 - Pure hypercholesterolemia, unspecified Category: Medical Plan: Avoid fried foods, chicken skin, eggs, butter margarine, pastries and meat. Be it pork or beef they have a lot of cholesterol LDL goal of less than 100 and triglyceride of less than 150 on atorvastatin 80 mg once a day (2) Obesity (BMI 30-39.9): Code(s): E66.9 - Obesity, unspecified Category: Medical Plan: diet and exercise (3) GERD (gastroesophageal reflux disease): Comment: Upper GI series Julymall to moderate-sized hiatal hernia with moderate gastroesophageal reflux. Small diverticulum in second segment of duodenum. Suspect gastric hyperacidity. Code(s): K21.9 - Gastro-esophageal reflux disease without esophagitis Category: Medical Qualifiers: Esophagitis presence: without esophagitis Qualified Code(s): K21.9 - Gastro-esophageal reflux disease without esophagitis Plan: Avoid the foods that causes that usually spicy foods, tomato products, juices, coffee, soda and foods that your sensitive to. After eating do not lie down, allow 3-4 hours before in lie down. And keep the head of bed above 30 degrees to avoid the acid from going up. (4) Obstructive sleep apnea: Comment: CPAP Code(s): G47.33 - Obstructive sleep apnea (adult) (pediatric) Category: Medical Plan: Continue to use the CPAP more than 4 hours a night and benefits from this. (5) Hypertension: Code(s): I10 - Essential (primary) hypertension Category: Medical Qualifiers: Hypertension type: primary hypertension Qualified Code(s): I10 - Essential (primary) hypertension Plan: Continue with blood pressure medication. Decrease salt intake and exercise on hydrochlorothiazide 25 mg once a day carvedilol 6.25 mg twice a day amlodipine 5 mg once a day (6) Recurrent pulmonary embolism: Comment: 04/24/2015, 6 months September 2015 Code(s): I26.99 - Other pulmonary embolism without acute cor pulmonale Category: Medical Plan: patient presently on apixaban Eliquis blood work every 6 months. Renal functio (7) Anxiety, generalized: Code(s): F41.1 - Generalized anxiety disorder Category: Medical Plan: stable (8) Hepatic steatosis: Comment: July 31 Increased echogenicity of the liver parenchyma, this can be seen in the setting of hepatic steatosis or liver parenchymal disease. 2. Cholelithiasis without ultrasound evidence of acute cholecystitis. 3. Bilateral echogenic renal cortices suggesting chronic medical renal disease. Code(s): K76.0 - Fatty (change of) liver, not elsewhere classified Category: Medical Plan: low-fat diet and exercise (9) Cholelithiasis: Comment: July 2024 Increased echogenicity of the liver parenchyma, this can be seen in the setting of hepatic steatosis or liver parenchymal disease. 2. Cholelithiasis without ultrasound evidence of acute cholecystitis. 3. Bilateral echogenic renal cortices suggesting chronic medical renal disease. Code(s): K80.20 - Calculus of gallbladder without cholecystitis without obstruction Category: Medical Qualifiers: Cholelithiasis location: gallbladder Cholecystitis presence: without cholecystitis Biliary obstruction: without biliary obstruction Qualified Code(s): K80.20 - Calculus of gallbladder without cholecystitis without obstruction Plan: low-fat diet and exercise Orders: Orders Comprehensive Met. Panel Today E78.00 - Pure hypercholesterolemia, unspecified UA CC w/rflx Micro + Cult Today E78.00 - Pure hypercholesterolemia, unspecified, R30.0 - Dysuria Vitamin D 25-OH Total Today E78.00 - Pure hypercholesterolemia, unspecified Lipid Panel Today E78.00 - Pure hypercholesterolemia, unspecified Complete Blood Count Auto Diff Today E78.00 - Pure hypercholesterolemia, unspecified Thyroid Stimulating Hormone Today E78.00 - Pure hypercholesterolemia, unspecified Vitamin B12 and Folate Today E78.00 - Pure hypercholesterolemia, unspecified Free T4 (Free Thyroxine) Today E78.00 - Pure hypercholesterolemia, unspecified Hemoglobin A1c Today E78.00 - Pure hypercholesterolemia, unspecified
--- OUTSIDE RECORDS SUMMARY | 2024-11-17 10:56 | XMS_ITS | Patient Health Record ---
Author Organization [facility] Address [address] [place] [address] Care Team Providers Care Mask Former Name Role Phone AlvarezGabielizabeth Primary Care Provider Hina Ziegler Unavailable [phone] Allergies Allergen (clinical drug ingredient) Drug/Non Drug Allergy documented on EMR Reaction Allergy Type Onset Date Status lisinopril Lisinopril swelling, itchy, swollen face Drug Allergy [...] HCl-Timolol Mal 22.3-6.8 MG/ML (Prior Auth: Rx Ref#:[id number]) Ophthalmic for 90 Unknown Probiotic Active Baby [...] Problem Status W/U Status Risk Notes Problem [id number] Hallux valgus (acquired), left foot (M20.12) Active confirmed Problem 133493313318467 Hallux valgus (acquired), right foot (M20.11) Active confirmed Problem 546039471 Hammer toe of right foot (M20.41) Active confirmed Problem 206085076 Hammer toe of left foot (M20.42) Active confirmed Plan Of Treatment Pending Test Test Name Order Date X ray : Foot, left 3V 03/18/2022 X ray : Foot, right 3V 03/18/2022 [id number] NAIL, 6 OR MORE 12/04/2015 [id number] NAIL, 6 OR MORE 09/04/2015 [id number] Destruction, -14 09/04/2015 [id number] Destruction, -14 09/25/2011 [id number] Destruction, 1-14 05/31/2012 17438, J0702- Neuroma/Injection 01/26/20 12 Insurance Providers Payer Name Payer Address Payer Phone Subscriber Number Group Number Insured Name Patient Relationship to Insured Coverage Start Date Coverage End Date BlueCare 65 Medicare Preferred [address] [place] [address] [id number] Lee Ann Love Self - patient is the insured Medical (General) History Medical History History ICD Code mumps measles hypertension glaucoma chicken pox Cataracts Arthritis Back,Hip,and Knee pain Broken bones Glaucoma High blood pressure Reflux ( GERD) Pulmonary embolism Surgical History Surgery Date(Month/Year) cataract surgery 2010,01/11/2015 Dental bone graft 11/22/2014 Hospitalization History Reason Date(Month/Year) Went to [facility] for allergic reaction to Lisinopril. 02/2012
--- OUTSIDE RECORDS SUMMARY | 2024-11-17 10:56 | XMS_ITS ---
Author Organization [facility] Address [address] [address] Care Team Providers Care Gun Repair Clerk Name Role Phone Danika Pino MD Primary Care Provider Raul Mckeon [phone] REASON FOR VISIT Patient presents today for FECAL ABNORMALITIES Encounters Encounter Location Date Provider Diagnosis [facility] [address] [address] 02/19/2024 Raul Napoles Plan Of Treatment No Information Progress Notes * TANIA CHASE CDOB:10/1949 (74 yo F)Acc No.[id number]:02/19/2024 Progress Notes Patient:?RENA TANIA Ambrosio Provider:?Raul Napoles MD :1950???Age:73 Y???Sex:Female D ate:02/19/2024 Address:[address] [place] [address] [facility] Pcp:Danika Pino MD Subjective: * Chief Complaints: * ???1. Patient presents today for FECAL ABNORMALITIES. * Medical History:? Objective: * Vitals:? Assessment: Plan: * Treatment: * * The named appointment provid er may or may not be the originator of this progress note, and it is not deemed complete until electronically signed by the appointment provider. Sign off status: Pending * Provider:?Raul Napoles MD Date:? 024 Generated for Printi ng/Faxing/eTransmitting on:?11/17/2024 10:55 AM EDT
--- OUTSIDE RECORDS SUMMARY | 2024-11-17 10:56 | XMS_ITS ---
Author Organization [facility] Address [address] [place] [address] Care Team Providers Care Noodle Press Operator Name Role Phone Danika Pino MD Primary Care Provider Raul Mckeon [phone] REASON FOR VISIT positive colon ca screening using cologuard Problems Problem Type SNOMED Code ICD Code Onset Dates Problem Status W/U Status Risk Notes Problem Diverticular disease of colon (223168158) Diverticulosis of large intestine without perforation or abscess without bleeding (K57.30) Active confirmed Encounters Encounter Location Date Provider Diagnosis [facility] Outpatient [address] [place] [phone] 02/17/2024 Raul Napoles Encounter for scre ening [...] * TANIA CHASE CDOB:10/1949 (74 yo F)Acc No.[id number]:02/17/2024 COLON WITH MAC Patient:?TANIA CHASE Provider:?Raul Napoles MD :1950???Age:73 Y???Sex:Female D ate:02/17/2024 Address:[address] [place] [address], [place] [facility] Pcp:Danika Pino MD Subjective: * Chief Complaints: * ???1. Positive colon ca scre ening using cologuard. * Medical History:? Objective: * Vitals:? Assessment: * Assessment: 1.?Encounter for screening c olonoscopy - Z12.11 (Primary)???2.?Heme + stool - R19.5???3.?Diverticulosis of large intestine without perforation or abscess without bleeding - K57.30???4.?Other hemorrhoids - K64.8??? Plan: * Treatment: * Procedure Codes:?38898 DIAGN OSTIC COLONOSCOPY, Modifiers: 33 * * The named appointment provid er may or may not be the originator of this progress note, and it is not deemed complete until electronically signed by the appointment provider. Sign off status: Pending * Provider:?Raul Napoles MD Date:? 024 Generated for Dinesh zavaleta/Caro/eTransmitting on:?11/17/2024 10:55 AM EDT
--- OUTSIDE RECORDS SUMMARY | 2024-11-17 10:56 | XMS_ITS | Patient Health Record ---
Author Organization [facility] Address [address] [place] [address] Care Team Providers Care Vocational Rehabilitation Administrator Name Role Phone Danika Pino MD Primary Care Provider Raul Mckeon [phone] Allergies Allergen (clinical drug ingredient) Drug/Non Drug Allergy documented on EMR Reaction Allergy Type Onset Date Status lisinopril Lisinopril Unknown Drug Allergy Activ e Reason For Referral No Information Medications Medication [...] Once a day for 30 day(s) Active Immunizations Vaccine Route Administration Date Status Comme nts Influenza Unknown 06/30/2023 Administered Problems Problem Type SNOMED Code ICD Code Onset Dates Problem Status W/U Status Risk Notes Problem Diverticular disease of colon (471789530) Diverticulosis of large intestine without perforation or abscess without bleeding (K57.30) Active confirmed Problem Abnormal feces (868573831) Positive colorectal cancer screening using Cologuard test (R19.5) Active confirmed Vital Signs Temperature 96.8 degrees Fahrenheit 01/06/2024 Blood pressure diastolic 00 mm Hg 01/06/2024 Height 63 in 01/06/2024 Blood pressure systolic 000 mm Hg 01/06/2024 Weight 199 lb 6 oz lbs 01/06/2024 BMI 35.31 kg/m2 01/06/2024 Encounters Encounter Location Date Provider Diagnosis [facility] Outpatient [address] [place], [place] [phone] 02/17/2024 Raul Napoles Encounter for screen ing colonoscopy Z12.11 ; Heme + stool R19.5 ; Diverticulosis of large intestine without perforation or abscess without bleeding K57.30 and Other hemorrhoids K64.8 [facility] [address] [place] [address] 01/06/2024 Raul Napoles Positive colorectal cancer screening using Cologuard test R19.5 Assessments Encounter Date Diagnosis (ICD Code) Assessment [...] nor on the day of the colonoscopy. Overall, Lee Ann appears very well. I did recommend a colonoscopy for further evaluation of the recent positive Cologuard test. We did review the rationale for this regard to colorectal cancer prevention and/or early detection. She was given the below instructions regarding the adjustment of her medications for the procedure. Full consent was obtained for the colonoscopy, including risks of bleeding and perforation. The procedure will be done monitored anesthesia care. In regard to her occasional episodes of urgency with her bowel movements I did advise her to observe things in that regard and let me know if things worsen. We did review that this certainly seems consistent with some occasional episodes of irritable bowel syndrome. I don't think she needs any specific medication for this at this point unless the episodes were to become more frequent. Her reflux seems stable on her omeprazole and given no worrisome symptoms at the present time, as well as the otherwise negative upper GI series and 2021, I don't think she needs an upper endoscopy. Lee Ann was comfortable with this plan. Thank you again for allowing me to participate in Lee Ann's care. I shall continue to keep you advised of her progress. 02/17/2024 Diverticulosis of large intestine without perforation or abscess without bleeding (ICD-10 - K57.30) 02/17/2024 Other hemorrhoids (ICD-10 - K64.8) Plan Of Treatment Future Test Test Name Order Date COLONOSCOPY 10/07/2013 COLONOSCOPY 01/06/2024 Insurance Providers Payer Name Payer Address Payer Phone Subscriber Number Group Number Insured Name Patient Relationship to Insured Coverage Start Date Coverage End Date [facility] [address] [place] [address] [id number] DEV Jernigan LEE ANN Self - patient is the insured Medical (General) History Medical History History ICD Code Colonoscopy 02-19-2005--neg except divert iculosis and internal hemorrhoids Hypertension Denies [place],DM,CVA,Lung disease,renal dise ase Glaucoma GERD-upper GI series [...]
--- OUTSIDE RECORDS SUMMARY | 2024-11-17 10:56 | XMS_ITS ---
Author Organization [facility] Address [address] [place] [address] Care Team Providers Care Pari Mutuel Ticket Cashier Name Role Phone Danika Pino MD Primary Care Provider Raul Mckeon [phone] Allergies Allergen (clinical drug ingredient) Drug/Non Drug Allergy documented on EMR Reaction Allergy Type Onset Date Status lisinopril Lisinopril Unknown Drug Allergy Activ e REASON FOR VISIT Patient presents today for fecal abnormalities Medications Medication SIG (Take, Route, Frequency, Duration) [...] & Diet Manage Pro d 5mg Active Social History Tobacco Use: Social History Observation Description Date Details (start date - stop date) Never Smoker NA - NA Tobacco Use/Smoking Question Answer Notes Patient is a nonsmoker Alcohol Screen Question Answer Notes Did you have a drink containing alcohol in the p ast year? No Points 0 Interpretation Negative Section Notes: Nonsmoker;no sig alcohol Problems Problem Type SNOMED Code ICD Code Onset Dates Problem Status W/U Status Risk Notes Problem Abnormal feces (889655035) Positive colorectal cancer screening using Cologuard test (R19.5) Active confirmed Vital Signs Temperature 96.8 degrees Fahrenheit 05/01/20 24 Blood pressure systolic 000 mm Hg 01/06/20 24 Blood pressure diastolic 00 mm Hg 024 Height 63 in 01/06/2024 Weight 199 lb 6 oz lbs 01/06/2024 BMI 35.31 kg/m2 01/06/2024 Encounters Encounter Location Date Provider Diagnosis [facility] [address] [place] [address] 01/06/2024 Raul Napoles Positive colorectal cancer screening using Cologuard test R19.5 Assessments Encounter Date Diagnosis (ICD Code) Assessment Notes Treatment Notes Treatment Clinical Notes Section Notes 01/06/2024 Positive colorectal cancer screening using [...] to keep you advised of her progress. Plan Of Treatment Treatment Notes Assessment Notes Positive colorectal cancer [...] Follow Up: prn, Reason: Progress Notes * LEE ANN CHASE CDOB:10/1949 (73 yo F)Acc No.[id number]:01/06/2024 Progress Notes Patient:?LEE ANN CHASE Provider:?Raul Napoles MD :1950???Age:73 Y???Sex:Female D ate:01/06/2024 Address:[address] [place] [address] [place] [id number] Pcp:Danika Pino MD Subjective: * Chief Complaints: * ???Patient presents today fo r fecal abnormalities * HPI: ???incontinence:? I saw Lee Ann in consultation today in regard to further evaluation of her positive Cologuard test. ?I last saw Lee Ann in 2013, at which time she underwent a negative followup screening colonoscopy. She also had a negative colonoscopy in 2004. As you know, she was recently found to have a positive Cologuard test that she turned in this past October. She describes her bowel movements have been regular about once every week or 2 she will have some urgency in which she will have to medel to the bathroom. She reports that she is not having diarrhea on those occasions that the bowel movements are soft. She reports that the episodes usually occur on Mondays after her larger than usual family dinner that she makes on Sundays. She does describe that the episodes usually occurred more often when she was working but since having retired they are definitely less often and less bothersome. She thinks the episodes may be related to stress as well. She denies any signs of hematochezia nor melena. She denies any known family history of colon cancer no inflammatory bowel disease. ?She enjoys a good appetite. She does take omeprazole regularly with good relief of previous reflux symptoms. She denies any ongoing issues with heartburn, anorexia, early satiety, nausea, no vomiting. An upper GI series and 2021 revealed a hiatal hernia and reflux but no worrisome findings. ?She denies abdominal pain, jaundice, or unintentional weight loss. ?Laboratories in October revealed a normal CBC, chemistry, and LFTs. * ROS:?General/Constitutional:?Change in appetite?denies.?Chills?denies.?Fatigue?denies.?Ophthalmologic:?Patient denies? Negative..?ENT:?Patient denies?Negative..?Respiratory:?Patient denies?No coughing/hemoptysis..?Cardiovascular:?Patient denies? No chest pain/orthopnea..?Gastrointestinal:?Comments?See HPI for details.?Genitourinary:?Patient denies? No dysuria/hematuria..?Musculoskeletal:?Patient denies? No specific arthralgias/myalgias..?Skin:?Patient denies?No rash/pruritus..?Neurologic:?Patient denies? No headaches/seizures..?Psychiatric:?Patient denies?Negative..? * Medical History:? 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 yuli osman tissue clean up 08/05/2018cateract surgery bilateral 01/11/15-01/30/2011 * Hospitalization/Major Diagno stic Procedure:?No Hospitalization History. * Family History:?Father: dece ased.?Mother: .? There is no family history of colorectal cancer or polyps. No family history of liver cancer. * Social History:?Tobacco Use:?Tobacco Use/Smoking?Patient is a?nonsmoker.?Drugs/Alcohol:?Alcohol Screen?Did you have a drink containing alcohol in the past year??No,?Points?0,?Interpretation?Negative.?Miscellaneous:?Marital status: . 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 ???Nonsmoker;no sig alcohol. * Medications:?TakingTimolol M aleate 0.5 % Solution 1 drop into affected eye Ophthalmic Once a dayEliquis 5 MG Tablet 1 tablet Orally Twice a dayhydroCHLOROthiazide 25 MG Tablet 1 tablet in the morning Orally Once a dayOmeprazole 20 MG Capsule Delayed Release 1 capsule 30 minutes before morning meal Orally Once a dayAmlodipine & Diet Manage Prod 5mg Dorzolamide HCl-Timolol Mal Zioptan 0.0015% Vitamin D 2000iu Calcium Taking Timolol Maleate 0.5 % Solution 1 drop into affected eye Ophthalmic Once a dayTaking Eliquis 5 MG Tablet 1 tablet Orally Twice a dayTaking hydroCHLOROthiazide 25 MG Tablet 1 tablet in the morning Orally Once a dayTaking Omeprazole 20 MG Capsule Delayed Release 1 capsule 30 minutes before morning meal Orally Once a dayTaking Amlodipine & Diet Manage Prod 5mg Taking Dorzolamide HCl-Timolol Mal Taking Zioptan 0.0015% Taking Vitamin D 2000iu Taking Calcium DiscontinuedSuprep Bowel Prep 1 kit Solution as directed Orally as directedMedication List reviewed and reconciled with the patientDiscontinued Suprep Bowel Prep 1 kit Solution as directed Orally as directedMedication List reviewed and reconciled with the patient * Allergies:?Lisinoprilyes[All ergies Verified] Objective: * Vitals:?Wt: 199 lb 6 oz, Ht: 63 in, BMI:35.31 Index, BP: 000/00 mm Hg, Temp: 96.8. * Examination: ???General Examination: ?GENERAL APPEARANCE:?pleasant, well nourished, well developed, in no acute distress.?EYES:?sclera non-icteric.?ORAL CAVITY:?mucosa moist.?NECK/THYROID:?no cervical lymphadenopathy, neck supple.?SKIN:?nonjaundiced, no spider angiomata..?HEART:?S1, S2 normal.?LUNGS:?clear to auscultation bilaterally.?ABDOMEN:?normal bowel sounds, no guarding or rigidity, no hepatosplenomegaly, no masses palpable, soft, nontender, nondistended..?EXTREMITIES:?no edema.?NEUROLOGIC:?alert and oriented.? Assessment: * Assessment: 1.?Positive colorectal cance r screening using Cologuard test - R19.5 (Primary)? Overall, Lee Ann appears elizabeth y well. I did recommend a colonoscopy for [...] to keep you advised of her progress. Plan: * Treatment: Notes: Stop the Eliquis for 3 days before the colonoscopy and check with Dr. Pino about possibly needing Lovenox injections while off the Eliquis. Do not use the Hydrochlorothiaizide the day before nor on the day of the colonoscopy.?? * Procedure Codes:?3017F COLOR ECTAL CA SCREEN DOC [id number] TOBACCO NON-[id number] BP SCR NOT PRFRM REC REASON NOS * Preventive Medicine:? ??Counseling:?Care goal follow-up plan:?Above Normal BMI Follow-up?Giving encouragement to exercise,?BMI management provided?Yes.? ??Urinary Incontinence:?Urinary Incontinence?Assessment:?Absent,?Plan of care documented:?No, reason not specified.? * Follow Up:?prn * * Sign off status: Completed true * Provider:?Raul Napoles MD Date:? 024 Generated for Jamini meghann/Caro/eTransmitting on:?11/17/2024 10:55 AM EDT History and Physical Notes * HPI (History of Present Illness) Category Sub-Category Detail Notes Category Not es incontinence I saw Lee Ann in consultation today in regard to further evaluation of her positive Cologuard test. I last saw Lee Ann in 2013, at which time she underwent a negative followup screening colonoscopy. She also had a negative colonoscopy in 2004. As you know, she was recently found to have a positive Cologuard test that she turned in this past October. She describes her bowel movements have been regular about once every week or 2 she will have some urgency in which she will have to medel to the bathroom. She reports that she is not having diarrhea on those occasions that the bowel movements are soft. She reports that the episodes usually occur on Mondays after her larger than usual family dinner that she makes on Sundays. She does describe that the episodes usually occurred more often when she was working but since having retired they are definitely less often and less bothersome. She thinks the episodes may be related to stress as well. She denies any signs of hematochezia nor melena. She denies any known family history of colon cancer no inflammatory bowel disease. She enjoys a good appetite. She does take omeprazole regularly with good relief of previous reflux symptoms. She denies any ongoing issues with heartburn, anorexia, early satiety, nausea, no vomiting. An upper GI series and 2021 revealed a hiatal hernia and reflux but no worrisome findings. She denies abdominal pain, jaundice, or unintentional weight loss. Laboratories in October revealed a normal CBC, chemistry, and LFTs. Examination Category Sub-Category Detail Notes Category Not es General Examination GENERAL APPEARANCE: pleasant , well [...]
== END 2024-11-17 10:12 | disposition home or self-care (01) ==
LOC: HO.HMCH 09:22
PROVIDERS: PCP Internal Medicine; Visit Provider Internal Medicine
DX: E78.00 Pure hypercholesterolemia, unspecified (principal); I26.99 Other pulmonary embolism without acute cor pulmonale; E66.9 Obesity, unspecified; Z68.30 Body mass index [BMI] 30.0-30.9, adult; K21.9 Gastro-esophageal reflux disease without esophagitis; G47.33 Obstructive sleep apnea (adult) (pediatric); I10 Essential (primary) hypertension; F41.1 Generalized anxiety disorder; K76.0 Fatty (change of) liver, not elsewhere classified; K80.20 Calculus of gallbladder without cholecystitis without obstruction

== ENCOUNTER → 2024-11-17 09:21 | Outpatient (BNVA) | payer MEDICARE, SELFPAY | PROVIDERS: PCP Internal Medicine; Visit Provider Internal Medicine | DX: E78.00 Pure hypercholesterolemia, unspecified (principal); E66.9 Obesity, unspecified; K21.9 Gastro-esophageal reflux disease without esophagitis; G47.33 Obstructive sleep apnea (adult) (pediatric); I10 Essential (primary) hypertension; I26.99 Other pulmonary embolism without acute cor pulmonale; F41.1 Generalized anxiety disorder; K76.0 Fatty (change of) liver, not elsewhere classified; K80.20 Calculus of gallbladder without cholecystitis without obstruction | CPT/HCPCS: 96127; 99212 ==

== ENCOUNTER 2024-11-21 09:26 | Outpatient (REF) | payer MEDICARE, SELFPAY ==
--- OUTSIDE RECORDS SUMMARY | 2024-11-21 10:11 | XMS_ITS | Patient Health Record ---
Author Organization [facility] Address [address] [place] [address] Care Team Providers Care Aircraft Engine Installer Name Role Phone Danika Pino MD Primary Care Provider Raul Mckeon [phone] Allergies Allergen (clinical drug ingredient) Drug/Non Drug [...] Risk Notes Problem Diverticular disease of colon (164100693) Diverticulosis of large intestine without perforation or abscess without bleeding (K57.30) Active confirmed Problem Abnormal feces (289580360) Positive colorectal cancer screening using Cologuard test (R19.5) Active confirmed Vital Signs Temperature 96.8 degrees Fahrenheit 01/06/2024 Blood pressure diastolic 00 mm Hg 01/06/2024 Height 63 in 01/06/2024 Blood pressure systolic 000 mm Hg 01/06/2024 Weight 199 lb 6 oz lbs 01/06/2024 BMI 35.31 kg/m2 01/06/2024 Encounters Encounter Location Date Provider Diagnosis [facility] Outpatient [address] [place], [place] [phone] 02/17/2024 Raul Napoles Encounter for screen ing colonoscopy Z12.11 ; Heme + stool R19.5 ; Diverticulosis of large intestine without perforation or abscess without bleeding K57.30 and Other hemorrhoids K64.8 [facility] [address] [place] [address] 01/06/2024 Raul Napoles Positive colorectal cancer screening [...] Insured Coverage Start Date Coverage End Date [facility] [address] [place] [address] [phone] [id number] DEV Jernigan LEE ANN Self - patient is the insured Medical (General) History Medical History History ICD Code Colonoscopy 02-19-2005--neg except divert iculosis and internal hemorrhoids Hypertension Denies [place],DM,CVA,Lung disease,renal dise ase Glaucoma GERD-upper GI series [...]
--- OUTSIDE RECORDS SUMMARY | 2024-11-21 10:11 | XMS_ITS ---
Author Organization [facility] Address [address] [place] [address] Care Team Providers Care Ip Litigation Paralegal Name Role Phone Danika Pino MD Primary Care Provider Raul Mckeon [phone] Allergies Allergen (clinical drug ingredient) Drug/Non Drug [...] W/U Status Risk Notes Problem Abnormal feces (175023789) Positive colorectal cancer screening using Cologuard test (R19.5) Active confirmed Vital Signs Temperature 96.8 degrees Fahrenheit 05/01/20 24 Blood pressure systolic 000 mm Hg 01/06/20 24 Blood pressure diastolic 00 mm Hg 024 Height 63 in 01/06/2024 Weight 199 lb 6 oz lbs 01/06/2024 BMI 35.31 kg/m2 01/06/2024 Encounters Encounter Location Date Provider Diagnosis [facility] [address] [place] [address] 01/06/2024 Raul Napoles Positive colorectal cancer screening [...] LEE ANN CHASE CDOB:10/1949 (73 yo F)Acc No.[id number]:01/06/2024 Progress Notes Patient:?LEE ANN CHASE Provider:?Raul Napoles MD :1950???Age:73 Y???Sex:Female D ate:01/06/2024 Address:[address] [place], [place] [id number] Pcp:Danika Pino MD Subjective: * Chief Complaints: [...] the past year??No,?Points?0,?Interpretation?Negative.?Miscellaneous:?Marital status: . 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 ???Nonsmoker;no sig alcohol. * Medications:?TakingTimolol [...] Procedure Codes:?3017F COLOR ECTAL CA SCREEN DOC [id number] TOBACCO NON-[id number] BP SCR NOT PRFRM REC REASON NOS * Preventive Medicine:? ??Counseling:?Care goal follow-up plan:?Above Normal BMI Follow-up?Giving encouragement to exercise,?BMI management provided?Yes.? ??Urinary Incontinence:?Urinary Incontinence?Assessment:?Absent,?Plan of care documented:?No, reason not specified.? * Follow Up:?prn * * Sign off status: Completed true * Provider:?Raul Napoles MD Date:? 024 Generated for Jamini meghann/Caro/eTransmitting on:?11/21/2024 10:11 AM EDT History and Physical Notes * [...]
--- OUTSIDE RECORDS SUMMARY | 2024-11-21 10:11 | XMS_ITS ---
Author Organization [facility] Address [address] [place] [address] Care Team Providers Care Jewelry Jobber Name Role Phone Danika Pino MD Primary Care Provider Raul Mckeon [phone] REASON FOR VISIT positive colon ca screening using cologuard Problems Problem Type SNOMED Code ICD Code Onset Dates Problem Status W/U Status Risk Notes Problem Diverticular disease of colon (250091169) Diverticulosis of large intestine without perforation or abscess without bleeding (K57.30) Active confirmed Encounters Encounter Location Date Provider Diagnosis [facility] Outpatient [address] [place] [phone] 02/17/2024 Raul Napoles Encounter for scre ening [...] * TANIA CHASE CDOB:10/1949 (74 yo F)Acc No.[id number]:02/17/2024 COLON WITH MAC Patient:?TANIA CHASE Provider:?Raul Napoles MD :1950???Age:73 Y???Sex:Female D ate:02/17/2024 Address:[address] [place] [address], [place] [facility] Pcp:Danika Pino MD Subjective: * Chief Complaints: * ???1. Positive colon ca scre ening using cologuard. * Medical History:? Objective: * Vitals:? Assessment: * Assessment: 1.?Encounter for screening c olonoscopy - Z12.11 (Primary)???2.?Heme + stool - R19.5???3.?Diverticulosis of large intestine without perforation or abscess without bleeding - K57.30???4.?Other hemorrhoids - K64.8??? Plan: * Treatment: * Procedure Codes:?36573 DIAGN OSTIC COLONOSCOPY, Modifiers: 33 * * The named appointment provid er may or may not be the originator of this progress note, and it is not deemed complete until electronically signed by the appointment provider. Sign off status: Pending * Provider:?Raul Napoles MD Date:? 024 Generated for Dinesh zavaleta/Caro/eTransmitting on:?11/21/2024 10:11 AM EDT
--- OUTSIDE RECORDS SUMMARY | 2024-11-21 10:11 | XMS_ITS ---
Author Organization [facility] Address [address] [address] Care Team Providers Care Accounts Receivable Executive Name Role Phone Danika Pino MD Primary Care Provider Raul Mckeon [phone] REASON FOR VISIT Patient presents today for FECAL ABNORMALITIES Encounters Encounter Location Date Provider Diagnosis [facility] [address] [address] 02/19/2024 Raul Napoles Plan Of Treatment No Information Progress Notes * TANIA CHASE CDOB:10/1949 (74 yo F)Acc No.[id number]:02/19/2024 Progress Notes Patient:?RENA TANIA Ambrosio Provider:?Raul Napoles MD :1950???Age:73 Y???Sex:Female D ate:02/19/2024 Address:[address] [place] [address] [facility] Pcp:Danika Pino MD Subjective: * Chief Complaints: [...] MD Date:? 024 Generated for Printi ng/Faxing/eTransmitting on:?11/21/2024 10:11 AM EDT
--- OUTSIDE RECORDS SUMMARY | 2024-11-21 10:12 | XMS_ITS | Patient Health Record ---
Author Organization [facility] Address [address] [place] [address] Care Team Providers Care Surface Water Technician Name Role Phone AlvarezGabielizabeth Primary Care Provider Hina Ziegler Unavailable [phone] Allergies Allergen (clinical drug ingredient) Drug/Non Drug [...] HCl-Timolol Mal 22.3-6.8 MG/ML (Prior Auth: Rx Ref#:[id number]) Ophthalmic for 90 Unknown Probiotic Active Baby [...] Problem Status W/U Status Risk Notes Problem [id number] Hallux valgus (acquired), left foot (M20.12) Active confirmed Problem [id number] Hallux valgus (acquired), right foot (M20.11) Active confirmed Problem [id number] Hammer toe of right foot (M20.41) Active confirmed Problem 479463210 Hammer toe of left foot (M20.42) Active confirmed Plan Of Treatment Pending Test Test Name Order Date X ray : Foot, left 3V 03/18/2022 X ray : Foot, right 3V 03/18/2022 [id number] NAIL, 6 OR MORE 12/04/2015 [id number] NAIL, 6 OR MORE 09/04/2015 [id number] Destruction, -14 09/04/2015 12024-Mbuu Destruction, -14 09/25/2011 47203-Dell Destruction, 1-14 05/31/2012 27041, J0702- Neuroma/Injection 01/26/20 12 Insurance Providers Payer Name Payer Address Payer Phone Subscriber Number Group Number Insured Name Patient Relationship to Insured Coverage Start Date Coverage End Date BlueCare 65 Medicare Preferred [address] [place] [address] [id number] Lee Ann Love Self - patient is the insured Medical (General) History Medical History History ICD Code mumps measles hypertension glaucoma chicken pox Cataracts Arthritis Back,Hip,and Knee pain Broken bones Glaucoma High blood pressure Reflux ( GERD) Pulmonary embolism Surgical History Surgery Date(Month/Year) cataract surgery 2010,01/11/2015 Dental bone graft 11/22/2014 Hospitalization History Reason Date(Month/Year) Went to [facility] for allergic reaction to Lisinopril. 02/2012
== END 2024-11-21 09:27 | disposition home or self-care (01) ==
LOC: HO.MAMMO 09:26
PROVIDERS: PCP Internal Medicine; Visit Provider Internal Medicine
DX: Z12.31 Encounter for screening mammogram for malignant neoplasm of breast (principal)
CPT/HCPCS: 77063; 77067

== ENCOUNTER → 2024-11-21 09:45 | Outpatient (BNV) | payer MEDICARE, SELFPAY | PROVIDERS: PCP Internal Medicine; Visit Provider Internal Medicine | DX: Z12.31 Encounter for screening mammogram for malignant neoplasm of breast (principal) | CPT/HCPCS: 77063; 77067 ==

== ENCOUNTER 2025-05-11 19:14 | Emergency (ER) | payer MEDICARE, SELFPAY ==
--- OUTSIDE RECORDS SUMMARY | 2024-02-17 07:30 | XMS_ITS ---
Author Organization [facility] Address [address] [place] [address] Care Team Providers Care Coppersmith Apprentice Name Role Phone Danika Pino MD Primary Care Provider Raul Mckeon [phone] REASON FOR VISIT positive colon ca screening using cologuard Problems Problem Type SNOMED Code ICD Code Onset Dates Problem Status W/U Status Risk Notes Problem Diverticular disease of colon (059883388) Diverticulosis of large intestine without perforation or abscess without bleeding (K57.30) Active confirmed Encounters Encounter Location Date Provider Diagnosis [facility] Outpatient [address] [place] [phone] 02/17/2024 Raul Napoles Encounter for scre ening [...] * TANIA CHASE CDOB:10/1949 (74 yo F)Acc No.[id number]:02/17/2024 COLON WITH MAC Patient: TANIA KIDD Provider: Denise Napoles MD :1950 A ge:73 Y S ex:Female Date:02/17/2024 Address:[address] [place] [address], [id number] Pcp:Danika Pino MD Subjective: * Chief Complaints: [...] MD Date: 0 02/17/2024 Generated for Dinesh zavaleta/Caro/Andreeitting on: 0 05/11/2025 08:28 PM EDT
--- OUTSIDE RECORDS SUMMARY | 2024-02-19 10:40 | XMS_ITS ---
Author Organization [facility] Address [address] [facility] [facility] [address] [place] [address] Care Team Providers Care Interior Wall Assembler Name Role Phone Danika Pino MD Primary Care Provider Raul Mckeon [phone] REASON FOR VISIT Patient presents today for FECAL ABNORMALITIES Encounters Encounter Location Date Provider Diagnosis [facility] [address] [address] 02/19/2024 Raul Napoles Plan Of Treatment No Information Progress Notes * TANIA CHASE CDOB:10/1949 (74 yo F)Acc No.[id number]:02/19/2024 Progress Notes Patient: Yolanda ORTIZ TANIA Hebert Provider: Denise Napoles MD :1950 A ge:73 Y S ex:Female Date:02/19/2024 Address:[address] [place] [address] [facility] Pcp:Danika Pino MD Subjective: * Chief Complaints: * 1 . Patient presents today for FECAL ABNORMALITIES. * Medical History: Objective: * Vitals: Assessment: Plan: * Treatment: * * The named appointment provid er may or may not be the originator of this progress note, and it is not deemed complete until electronically signed by the appointment provider. Sign off status: Pending * Provider: Denise Napoles MD Date: 02/19/2024 Generated for Printi ng/Faxing/eTransmitting on: 05/11/2025 08:28 PM EDT
[2025-05-11 19:19] VITALS: BP 123/82; PULSE 62; O2SAT 95
[2025-05-11 19:29] VITALS: BP 150/77; PULSE 65; RESP 16; TEMP 36.7; O2SAT 93; BMI 31.5
[2025-05-11 19:34] VITALS: BP 150/77; PULSE 65; RESP 16; TEMP 36.7; O2SAT 93
--- OUTSIDE RECORDS SUMMARY | 2025-05-11 20:28 | XMS_ITS | Patient Health Record ---
Author Organization [facility] Address [address] [place] [address] Care Team Providers Care Garment Patternmaker Name Role Phone Danika Pino MD Primary Care Provider Raul Mckeon [phone] Allergies Allergen (clinical drug ingredient) Drug/Non Drug [...] Risk Notes Problem Diverticular disease of colon (767173933) Diverticulosis of large intestine without perforation or abscess without bleeding (K57.30) Active confirmed Problem Abnormal feces (339622953) Positive colorectal cancer screening using Cologuard test (R19.5) Active confirmed Plan Of Treatment Future Test Test Name Order Date COLONOSCOPY 10/07/2013 COLONOSCOPY 01/06/2024 Insurance Providers Payer Name Payer Address Payer Phone Subscriber Number Group Number Insured Name Patient Relationship to Insured Coverage Start Date Coverage End Date [facility] [address] [address] [place] [address] [phone] [id number] TANIA DE LA GARZA Self - patient is the insured Medical (General) History Medical History History ICD Code Colonoscopy 02-19-2005--neg except divert iculosis and internal hemorrhoids Hypertension Denies NV,DM,CVA,Lung disease,renal dise ase Glaucoma GERD-upper GI series [...]
--- OUTSIDE RECORDS SUMMARY | 2025-05-11 20:28 | XMS_ITS | Patient Health Record ---
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 Name Role Phone AlvarezGabielizabeth Primary Care Provider Hina Ziegler Unavailable [phone] Allergies Allergen (clinical drug ingredient) Drug/Non Drug [...] capsule in the morning Orally Once a day; Duration: 30 day(s) Active Eliquis 5 MG as directed Orally Active Vitamin D3 Active Timolol Maleate 0.5 % 1 drop into affected eye Ophthalmic Once a day Active Dorzolamide HCl-Timolol Mal 22.3-6.8 MG/ML (Prior Auth: Rx Ref#:[id number]) Ophthalmic; Duration: 90 Unknown Probiotic Active Baby Aspirin Unknown [...] Problem Status W/U Status Risk Notes Problem Acquired hallux valgus (35141361) Hallux valgus (acquired), left foot (M20.12) Active confirmed Problem Acquired hallux valgus (64804716) Hallux valgus (acquired), right foot (M20.11) Active confirmed Problem Acquired hammer toe of right foot (6483491794732 105) Hammer toe of right foot (M20.41) Active confirmed Problem Acquired hammer toe of left foot (4519892215956 103) Hammer toe of left foot (M20.42) Active confirmed Plan Of Treatment Pending Test Test Name Order Date X ray : Foot, left 3V 03/18/2022 X ray : Foot, right 3V 03/18/2022 [id number] NAIL, 6 OR MORE 12/04/2015 [id number] NAIL, 6 OR MORE 09/04/2015 87370-Fkjc Destruction, 1-14 09/04/2015 90743-Fneo Destruction, 1-14 09/25/2011 57990-Sesx Destruction, 1-14 05/31/2012 03363, J0702- Neuroma/Injection 01/26/20 12 Insurance Providers Payer Name Payer Address Payer Phone Subscriber Number Group Number Insured Name Patient Relationship to Insured Coverage Start Date Coverage End Date BlueCare 65 Medicare Preferred [address] [place] [address] [phone] [id number] Lee Ann Love Self - patient is the insured Medical (General) History Medical History History ICD Code mumps measles hypertension glaucoma chicken pox Cataracts Arthritis Back,Hip,and Knee pain Broken bones Glaucoma High blood pressure Reflux ( GERD) Pulmonary embolism Surgical History Surgery Date(Month/Year) cataract surgery 2010,01/11/2015 Dental bone graft 11/22/2014 Hospitalization History Reason Date(Month/Year) Went to [facility] [place] allergic reaction to Lisinopril. 02/2012
--- NOTE | 2025-05-11 21:45 | ED_ITS ---
HPI - General Adult General Chief complaint: General Medical Stated complaint: PT varicose vein opened up while shower, + thinner Time Seen by Provider: 05/11/25 21:20 Source: patient and EMS Mode of arrival: EMS Limitations: no limitations History of Present Illness ED Provider: RONALD ELIZONDO narrative: 74 yo female with PMH of HTN, HLD, PE on eliquis has never missed dose. She notes the past few days a small red bump on L inner leg. She states tonight when showering she rubbed the area it shot out blood and she notes she was able to apply a dressing and get it under control. She has no dizziness or systemic symptoms this has never happened before. 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) Location: left and lower extremity Radiation: non-radiation Severity: mild Relieving factors: other (compression) Exacerbating factors: none Associated symptoms: denies other symptoms Treatments prior to arrival: other Related Data Home Medications ?Medication ?Instructions ?Recorded ?Confirmed tafluprost (PF) 0.0015 % eye drops 1 drp ophthalmic (e ye) BEDTIME 06/29/20 11/17/24 in a dropperette (Zioptan (PF)) CPAP (CPAP Machine/Device) 10/10/22 11/17/24 timolol maleate 0.5 % eye drops 1 drp ophthalmic (eye) BID 03/22/24 11/17/24 triamcinolone acetonide 0.1 % 1 appl topical BID-TID 0 04/22/24 11/17/24 topical cream cholecalciferol (vitamin D3) 25 25 mcg PO DAILY 11/17/24 mcg (1,000 unit) capsule Previous Rx's ?Medication ?Instructions ?Recorded acetaminophen 325 mg tablet 650 mg (2 x 325 mg) PO Q6H PRN 03/23/24 Pain, Mild (Pain Scale 1-3), fever or headache #30 tabs hydrochlorothiazide 25 mg tablet 25 mg PO DAILY #90 ta bs 07/16/24 apixaban 5 mg tablet (Eliquis) 5 mg PO BID #180 tabs 0 01/05/25 atorvastatin 80 mg tablet 80 mg PO DAILY #90 tabs 05/11/29 carvedilol 6.25 mg tablet 6.25 mg PO BID #180 tabs 11/29 amlodipine 5 mg tablet 5 mg PO DAILY #90 tabs 03/20 Allergies Allergy/AdvReac Type Severity Reaction Status Date / Time lisinopril (LISINOPRIL) Allergy Severe ANGIOEDEMA Verified 05/11/25 19:31 latex (LATEX) Allergy Mild RASH Verified 05/11/25 19:31 Review of Systems Review of Systems: Constitutional : No Fever, No Chills, Cardiovascular : No Chest Pain, No SOB Respiratory : No Dyspnea Gastrointestinal : No abdominal pain Musculoskeletal : No Joint Swelling Skin : No rash, positive skin laceration Neuro : No Weakness, No Numbness Yes all other systems are reviewed and are negative [facility] Past Medical History Attestation statement: The following information was validated with the patient. Source: old records reviewed Medical History Palpitations Sleep apnea Hiatal hernia Colon cancer screening Osteopenia Pubic bone fracture Hypertension Anxiety Pancreatic lesion Obstructive sleep apnea Peripheral vascular disease GERD (gastroesophageal reflux disease) Obesity (BMI 30-39.9) Glaucoma Osteoarthritis Thyroid nodule Hypercholesterolemia Recurrent pulmonary embolism Surgical History S/P cardiac catheterization H/O colonoscopy History of left knee surgery History of eye surgery History of tonsillectomy History of cataract extraction Family History Family History Father Diabetes CHF (congestive heart failure) Hypertension CVD (cardiovascular disease) Mother Dementia Stroke Hypertension Son In good health Other Mental health disorder Social History Social History Household Members: Spouse Housing: House Do you presently have visiting nurse or other home services: No Alcohol intake: never Patient Tobacco Use Status: Never used Tobacco Tobacco use type: Cigarette Smoked in Last 30 Days: No e-Cigarette/Vaping Use: Never Used Second Hand Smoke Exposure: No Use of substances other than those prescribed or required for medical reasons: No Advance Directives: No Advance Directives Information Provided: Yes service: No Current occupational status: retired Cognitive needs: No Hearing needs: No Vision needs: Yes Physical Exam ED Vital Signs: Vital Signs - 24 hr 05/11/25 19:29 05/11/25 19:34 Temperature 98.1 F 98.1 F Pulse Rate 65 65 Respiratory Rate 16 16 Blood Pressure 150/77 H 150/77 H Pulse Oximetry 93 93 Oxygen Delivery Method Room Air Room Air BMI result Body Mass Index 31.5 Appearance: Alert. Oriented X3. No acute distress. Eyes: Pupils equal, round and reactive to light. ENT: Pharynx normal. Neck: Normal inspection. CVS: Pulses normal. Respiratory: No respiratory distress. Abdomen: Soft and nontender. Skin: Skin warm and dry. Normal skin color. Extremities: No lower extremity edema. L medial aspect of leg there is small not engorged or inflammed varicose vein with small pinpoint area that is scabbed but no active bleeding Neuro: Oriented X 3. No motor deficit. No sensory deficit. Medical Decision Making Medical Decision Making MDM Narrative: 74 yo female with PMH of HTN, HLD, PE on eliquis now here with resolved bleeding varicose vein that has resolved. She has NV exam intact. I cleansed the area with chlorhexidine the applied dermabond layers. I then applied non stick and and bulky dressing with leonel wrap. Differential Diagnosis Differential Diagnoses: The differential diagnosis associated with the presentation includes varicose vein External Record Review External record reviewed: Outpatient record Prescription Management I considered prescription management with: Other Discharge Plan Discharge Clinical Impression: Ruptured varicose vein Patient Disposition: Home, Self-Care Instructions: Skin Adhesive Care (ED) Additional Instructions: okay to get wet in 48 hours monitor for increased pain, swelling, bleeding you can take all of your medications as prescribed return for weakness, dizziness, fatigue you need to wear that dressing for the next 24 hours then change glue will fall off in 5 to 7 days - leonel wrap should be worn for total of 5 days with gauze in between. Prescriptions: No Action hydrochlorothiazide 25 mg tablet 25 mg PO DAILY Qty: 90 3RF Eliquis 5 mg tablet 5 mg PO BID Qty: 180 3RF atorvastatin 80 mg tablet 80 mg PO DAILY Qty: 90 2RF carvedilol 6.25 mg tablet 6.25 mg PO BID Qty: 180 2RF amlodipine 5 mg tablet 5 mg PO DAILY Qty: 90 1RF Protocol: Hold for SBP< HOLD for SBP < : 90 tafluprost (PF) [Zioptan (PF)] 0.0015 % dropperette 1 drp ophthalmic (eye) BEDTIME Rx Instructions: Both eyes timolol maleate 0.5 % drops 1 drp ophthalmic (eye) BID Rx Instructions: Both eyes acetaminophen 325 mg Tablet 650 mg PO Q6H PRN (Reason: Pain, Mild (Pain Scale 1-3), fever or headache) Qty: 30 0RF (DME) CPAP Machine/Device Device See Rx Instructions .Route Rx Instructions: As directed triamcinolone acetonide 0.1 % cream 1 appl topical BID-TID cholecalciferol (vitamin D3) 25 mcg (1,000 unit) capsule 25 mcg PO DAILY Interventions: ED Discharge Assessment Last Done: 05/11/25 21:59 Print Language: Niuean
[2025-05-11 21:57] VITALS: BP 176/87; PULSE 69; RESP 16; TEMP 36.6; O2SAT 96
[2025-05-11 21:59] VITALS: BP 176/87; PULSE 69; RESP 16; TEMP 36.6; O2SAT 96
== END 2025-05-11 22:01 | disposition home or self-care (01) ==
PROVIDERS: Emergency Provider Emergency Medicine; PCP Internal Medicine
DX: I83.892 Varicose veins of left lower extremity with other complications (principal); I10 Essential (primary) hypertension; Z86.711 Personal history of pulmonary embolism; Z79.01 Long term (current) use of anticoagulants; Z79.899 Other long term (current) drug therapy
CPT/HCPCS: 99282; 99284

== ENCOUNTER 2025-05-22 09:43 | Outpatient (AMB) | payer MEDICARE, SELFPAY ==
--- OUTSIDE RECORDS SUMMARY | 2024-02-17 07:30 | XMS_ITS ---
Author Organization [facility] Address [address] [place] [address] Care Team Providers Care Sandblaster Supervisor Name Role Phone Danika Pino MD Primary Care Provider Raul Mckeon [phone] REASON FOR VISIT positive colon ca screening using cologuard Problems Problem Type SNOMED Code ICD Code Onset Dates Problem Status W/U Status Risk Notes Problem Diverticular disease of colon (615548314) Diverticulosis of large intestine without perforation or abscess without bleeding (K57.30) Active confirmed Encounters Encounter Location Date Provider Diagnosis [facility] [place] [address] [place] [phone] 02/17/2024 Raul Napoles Encounter for scre ening [...] Information Progress Notes * TANIA CHASE CDOB:10/1949 (74 yo F)Acc No.[id number]:02/17/2024 COLON WITH MAC Patient: TANIA KIDD Provider: Denise Napoles MD :1950 A ge:73 Y S ex:Female Date:02/17/2024 Address:[address] [place] [address], [facility] Pcp:Danika Pino MD Subjective: * Chief Complaints: * 1 . Positive colon ca screening using cologuard. * Medical History: Objective: * Vitals: Assessment: * Assessment: 1. E ncounter for screening colonoscopy - Z12.11 (Primary) 2 . H reid + stool - R19.5 3 . D iverticulosis of large intestine without perforation or abscess without bleeding - K57.30 4 . O ther hemorrhoids - K64.8 Plan: * Treatment: * Procedure Codes: 4 5378 DIAGNOSTIC COLONOSCOPY, Modifiers: 33 * * The named appointment provid er may or may not be the originator of this progress note, and it is not deemed complete until electronically signed by the appointment provider. Sign off status: Pending * Provider: Denise Napoles MD Date: 0 02/17/2024 Generated for Dinesh zavaleta/Caro/Gretchensmitting on: 0 05/22/2025 11:52 AM EDT
--- OUTSIDE RECORDS SUMMARY | 2024-02-19 10:40 | XMS_ITS ---
Author Organization [facility] Address [address] [facility] [address] [place] [address] Care Team Providers Care Sock And Stocking Ironer Name Role Phone Danika Pino MD Primary Care Provider Raul Mckeon [phone] REASON FOR VISIT Patient presents today for FECAL ABNORMALITIES Encounters Encounter Location Date Provider Diagnosis [facility] [address] [phone] 02/19/2024 Raul Napoles Plan Of Treatment No Information Progress Notes * TANIA CHASE CDOB:10/1949 (74 yo F)Acc No.[id number]:02/19/2024 Progress Notes Patient: Yolanda ORTIZ TANIA Hebert Provider: Denise Napoles MD :1950 A ge:73 Y S ex:Female Date:02/19/2024 Address:[address] [place] [address] [facility] Pcp:Danika Pino MD Subjective: * Chief Complaints: [...] Napoles MD Date: 0 02/19/2024 Generated for Printi ng/Faxing/eTransmitting on: 0 05/22/2025 11:52 AM EDT
[2025-05-22 09:58] VITALS: BP 124/72; PULSE 61; O2SAT 99; BMI 31.4
--- NOTE | 2025-05-22 09:58 | A.OFFPC_ITS ---
Vital Signs 05/22/25 09:58 Height 5 ft 3 in Weight 177 lb BMI 31.4 BP 124/72 Blood Pressure Location Lt brachial Position Sitting Pulse 61 Pulse Source Pulse Oximeter Pulse Oximetry (%) 99 Oxygen Delivery Method Room Air Intake Visit Reasons: Hypertension Allergies lisinopril (LISINOPRIL) Allergy (Severe, Verified 05/22/25 09:59) ANGIOEDEMA latex (LATEX) Allergy (Mild, Verified 05/22/25 09:59) RASH Tobacco use date assessed: 11/17/24 Fall risk assessment: No Falls in past year Last assessed Fall Risk: 05/22/25 Dental Screening Dental Screen Date: 11/17/24 [facility] Medical History Palpitations Sleep apnea Hiatal hernia Colon cancer screening Osteopenia Pubic bone fracture Hypertension Anxiety Pancreatic lesion Obstructive sleep apnea Peripheral vascular disease GERD (gastroesophageal reflux disease) Obesity (BMI 30-39.9) Glaucoma Osteoarthritis Thyroid nodule Hypercholesterolemia Recurrent pulmonary embolism Surgical History S/P cardiac catheterization H/O colonoscopy History of left knee surgery History of eye surgery History of tonsillectomy History of cataract extraction Family History Father Diabetes CHF (congestive heart failure) Hypertension CVD (cardiovascular disease) Mother Dementia Stroke Hypertension Son In good health Other Mental health disorder Social History Household Members: Spouse Housing: House Do you presently have visiting nurse or other home services: No Alcohol intake: never Patient Tobacco Use Status: Never used Tobacco Tobacco use type: Cigarette e-Cigarette/Vaping Use: Never Used Second Hand Smoke Exposure: No service: No Current occupational status: retired Cognitive needs: No Hearing needs: No Vision needs: Yes Questionnaire PHQ-9 Over the last 2 weeks, how often have you been bothered by any of the following problems? 1. Little interest or pleasure in doing things: not at all 2. Feeling down, depressed, or hopeless: not at all 3. Trouble falling or staying asleep, or sleeping too much: not at all 4. Feeling tired or having little energy: not at all 5. Poor appetite or overeating: not at all 6. Feeling bad about yourself - or that you are a failure or have let yourself or your family down: not at all 7. Trouble concentrating on things, such as reading the newspaper or watching television: not at all 8. Moving or speaking so slowly that other people could have noticed. Or the opposite - being so fidgety or restless that you have been moving around a lot more than usual: not at all 9. Thoughts that you would be better off or of hurting yourself in some way: not at all Total score: 0 Depression Screening Interpretation: Negative Depression Screening Done: Yes Source: Developed by Drs. Raul Estes, Va Stone, Sunny Mosqueda and colleagues, with an educational diana from [employer]. Thrive Questionnaire Date Thrive assessed: 05/15/25 I am a: Patient What is your living situation today?: I have a steady place to live Within the past 12 months, did the food you bought not last and you didn't have the money to get more?: Never true Within the past 12 months, did you worry whether your food would run out before you got money to buy more?: Never true Do you have trouble paying for medicines?: No Do you have trouble getting transportation to medical appointments?: No Do you have trouble paying your heating and electricity bill?: No Do you have trouble taking care of your child, family member or friend?: No Do you have trouble with day-to-day activities such as bathing, preparing meals, shopping, managing finances, etc.?: No Are you currently unemployed and looking for a job?: No Are you interested in more education?: No Please select the resources that you would like help with: None Currently or been in a relationship where the following occur: No concerns reported THRIVE Score: 0 AUDIT C Alcohol Use Questionnaire (AUDIT-C) 1. How often do you have a drink containing alcohol?: Never 3. How often do you have six or more drinks on one occasion?: Never Total Score: 0 ARNIE-7 AMB Questionnaire ARNIE-7 Date ARNIE - 7 assessed: 11/17/24 Feeling nervous, anxious, or on edge: 1 = Several days Not being able to stop or control worryin = Not at all Worrying too much about different things: 1 = Several days Trouble relaxin = Not at all Being so restless that it is hard to sit still: 0 = Not at all Becoming easily annoyed or irritable: 0 = Not at all Feeling afraid as if something awful might happen: 0 = Not at all Total ARNIE-7 score (0-4 normal; 5-9 mild; 10-14 moderate; 15-21 severe): 2 Source: Developed by Drs. Raul Estes, Va Stone, Sunny Mosqueda and colleagues, with an educational diana from [employer]. Physical exam (Primary Care) Vital Signs: Last Vital Signs Pulse 61 05/22/25 09:58 BP 124/72 05/22/25 09:58 Pulse Ox 99 05/22/25 09:58 Oxygen Delivery Method Room Air 05/22/25 09:58 BMI result Body Mass Index 31.4 Tobacco/Smoking Status: Tobacco use Status Tobacco use date assessed 11/17/24 05/22/25 10:03 Patient Tobacco Use Status Never used Tobacco 05/22/25 10:03 Tobacco use type Cigarette 05/22/25 10:03 e-Cigarette/Vaping Use Never Used 05/22/25 10:03 PHQ-9: PHQ-9 Score PHQ-9: Total score 0 05/22/25 10:21 Depression Screening Interpretation: Negative Thrive Assessment: Date of Thrive Assessment Date Thrive assessed 05/15/25 05/22/25 10:03 Currently or been in a relationship where the following occur: No concerns reported Const General: alert; No acute distress Eyes Conjunctivae: conjunctivae normal Resp Auscultation: clear to auscultation bilaterally Cardio Rate: regular rate Rhythm: regular rhythm GI Inspection: Yes normal to inspection Extrem General: Yes normal to inspection and No edema Coding Level of Care Code Est Pt Level 4 (01498) Complex EM visit Add On G2211 Diagnoses NSTEMI (non-ST elevated myocardial infarction) I21.4 Primary hypertension I10 Hypertension type: primary hypertension Hypercholesterolemia E78.00 Recurrent pulmonary embolism I26.99 Impaired glucose tolerance R73.02 Obesity (BMI 30-39.9) E66.9 Osteoporosis M81.0 Gastroesophageal reflux disease without esophagitis K21.9 Esophagitis presence: without esophagitis Hepatic steatosis K76.0 Positive colorectal cancer screening using Cologuard test R19.5 Obstructive sleep apnea G47.33 Varicose veins of both lower extremities I83.93 Assessment & Plan Assessment & Plan (1) NSTEMI (non-ST elevated myocardial infarction): Comment: Cardiac catheterization 03/26/2024 normal coronaries Code(s): I21.4 - Non-ST elevation (NSTEMI) myocardial infarction Category: Medical Plan: Control the cholesterol, weight, blood pressure, patient on anticoagulation (2) Hypertension: Code(s): I10 - Essential (primary) hypertension Category: Medical Qualifiers: Hypertension type: primary hypertension Qualified Code(s): I10 - Essential (primary) hypertension Plan: Continue with blood pressure medication. Decrease salt intake and exercise takes amlodipine 5 mg once a day carvedilol 6.25 mg twice a day hydrochlorothiazide 25 mg once a day (3) Hypercholesterolemia: Code(s): E78.00 - Pure hypercholesterolemia, unspecified Category: Medical Plan: Avoid fried foods, chicken skin, eggs, butter margarine, pastries and meat. Be it pork or beef they have a lot of cholesterol blood work was last year on atorvastatin 80 mg once a day (4) Recurrent pulmonary embolism: Comment: 04/24/2015, 6 months September 2015 Code(s): I26.99 - Other pulmonary embolism without acute cor pulmonale Category: Medical Plan: Continue with patient on anticoagulation with Eliquis (5) Impaired glucose tolerance: Code(s): R73.02 - Impaired glucose tolerance (oral) Category: Medical Plan: Decrease the amount of carbohydrate intake, pasta, bread, rice and potatoes are all sugar and that is aside from all the sweet stuff, remember that fruits are good but they are Sweet also. (6) Obesity (BMI 30-39.9): Code(s): E66.9 - Obesity, unspecified Category: Medical Plan: Diet and exercise (7) Osteoporosis: Comment: July 2023 Code(s): M81.0 - Age-related osteoporosis without current pathological fracture Category: Medical Plan: Patient is reminded about bone density (8) GERD (gastroesophageal reflux disease): Comment: Upper GI series Julymall to moderate-sized hiatal hernia with moderate gastroesophageal reflux. Small diverticulum in second segment of duodenum. Suspect gastric hyperacidity. Code(s): K21.9 - Gastro-esophageal reflux disease without esophagitis Category: Medical Qualifiers: Esophagitis presence: without esophagitis Qualified Code(s): K21.9 - Gastro-esophageal reflux disease without esophagitis Plan: Avoid the foods that causes that usually spicy foods, tomato products, juices, coffee, soda and foods that your sensitive to. After eating do not lie down, allow 3-4 hours before in lie down. And keep the head of bed above 30 degrees to avoid the acid from going up. (9) Hepatic steatosis: Comment: July 31 Increased echogenicity of the liver parenchyma, this can be seen in the setting of hepatic steatosis or liver parenchymal disease. 2. Cholelithiasis without ultrasound evidence of acute cholecystitis. 3. Bilateral echogenic renal cortices suggesting chronic medical renal disease. Code(s): K76.0 - Fatty (change of) liver, not elsewhere classified Category: Medical Plan: Low-fat diet and exercise (10) Positive colorectal cancer screening using Cologuard test: Comment: October 2023 Code(s): R19.5 - Other fecal abnormalities Category: Medical (11) Obstructive sleep apnea: Comment: CPAP Code(s): G47.33 - Obstructive sleep apnea (adult) (pediatric) Category: Medical (12) Varicose veins of both lower extremities: Code(s): I83.93 - Asymptomatic varicose veins of bilateral lower extremities Category: Medical Plan History of Present Illness The patient is a 74-year-old female presenting for a follow-up visit. She has a history of obesity and hypercholesterolemia, managed with atorvastatin 80 mg daily, with her last LDL cholesterol recorded at 53 mg/dL in June 2024. She also has gastroesophageal reflux disease, for which she follows a no-fat diet and exercise regimen. The patient has obstructive sleep apnea and uses a CPAP machine nightly, reporting good compliance and benefit from its use. She has hypertension, managed with amlodipine, carvedilol, and hydrochlorothiazide. Her medical history includes recurrent pulmonary embolism, for which she is on anticoagulation therapy with Eliquis. She has generalized anxiety disorder and osteoporosis, with her last bone density test conducted in July 2023. The patient experienced a non-ST elevation myocardial infarction and underwent catheterization in March 2024, which showed normal coronaries. She has impaired glucose tolerance and cholelithiasis. Preventative care includes a positive Cologuard test in October 2023, a mammogram in November 2024, and an up-to-date bone density screening. Health Maintenance - Colon cancer screening with stool test: Positive Cologuard in October 2023 - Mammogram: Completed in November 2024 - Bone density screening: Up-to-date, last conducted in July 2023 - Vaccinations: Shingles, tetanus, RSV, and pneumonia vaccines are up-to-date; flu shot recommended for June - COVID-19 vaccination: Recommended if more than 6 months since last dose Social History - Exercise: Participates in healthy bones and balance classes at [facility] - Functional status: Engages in activities such as sewing and doll restringing, which may contribute to hand pain Review of Systems - Cardiovascular: Reports history of non-ST elevation myocardial infarction, denies current chest pain - Respiratory: Reports obstructive sleep apnea, uses CPAP nightly - Gastrointestinal: Reports gastroesophageal reflux disease, follows no-fat diet - Musculoskeletal: Reports hand pain, possibly related to arthritis or tendon issues - Neurological: Denies current anxiety symptoms, history of generalized anxiety disorder Physical Exam Results - Labs: LDL cholesterol 53 mg/dL in June 2024 - Tests: Positive Cologuard in October 2023 - Imaging: Mammogram completed in November 2024 - Imaging: Bone density screening up-to-date as of July 2023 Plan Patient was informed and verbally consented to the use of an ambient scribe for clinic note documentation during this visit. 1. Obesity The patient is advised to continue with lifestyle modifications including diet and exercise to manage obesity. 2. Hypercholesterolemia The patient is on atorvastatin 80 mg daily, with LDL cholesterol well-controlled at 53 mg/dL as of June 2024. 3. Gastroesophageal Reflux Disease (Gerd) Management includes a no-fat diet and regular exercise to alleviate symptoms of GERD. 4. Obstructive Sleep Apnea The patient is compliant with CPAP therapy, reporting significant benefit from nightly use. 5. Hypertension The patient is on a regimen of amlodipine, carvedilol, and hydrochlorothiazide for blood pressure management. 6. Recurrent Pulmonary Embolism The patient continues anticoagulation therapy with Eliquis to prevent further embolic events. 7. Generalized Anxiety Disorder The patient's anxiety disorder is noted, with no current symptoms reported during the visit. 8. Osteoporosis Bone density is monitored, with the last test conducted in July 2023. 9. Coronary Artery Disease The patient has a history of coronary artery disease with a non-ST elevation myocardial infarction and normal coronaries on catheterization in March 2024. 10. Impaired Glucose Tolerance The patient is advised to monitor glucose levels and maintain a healthy lifestyle to manage impaired glucose tolerance. 11. Cholelithiasis Cholelithiasis is noted in the patient's medical history, with no current symptoms reported. Discussion Notes During the visit, we discussed the management of the patient's multiple chronic conditions, including the continuation of current medications and lifestyle modifications for obesity, hypercholesterolemia, and GERD. We also reviewed the importance of compliance with CPAP therapy for obstructive sleep apnea and the n eed for ongoing anticoagulation therapy for recurrent pulmonary embolism. Preventative care measures, including vaccinations and screenings, were emphasized, and the patient was advised to follow up with a vascular surgeon for further evaluation of varicose veins. Patient Instructions - Continue current medications as prescribed, including atorvastatin, amlodipine, carvedilol, hydrochlorothiazide, and Eliquis. - Maintain a no-fat diet and regular exercise regimen to manage GERD and obesity. - Use CPAP machine nightly for obstructive sleep apnea. - Schedule follow-up with a vascular surgeon for evaluation of varicose veins. - Ensure vaccinations are up-to-date, including flu and COVID-19 vaccines. Orders: Referrals Vascular Surgery Referral I83.93 - Asymptomatic varicose veins of bilateral lower extremities
--- OUTSIDE RECORDS SUMMARY | 2025-05-22 11:52 | XMS_ITS | Patient Health Record ---
Author Organization [facility] Address [address] [place] [address] Care Team Providers Care Demo Specialist Name Role Phone Danika Pino MD Primary Care Provider Raul Mckeon [phone] Allergies Allergen (clinical drug ingredient) Drug/Non Drug [...] Risk Notes Problem Diverticular disease of colon (573445885) Diverticulosis of large intestine without perforation or abscess without bleeding (K57.30) Active confirmed Problem Abnormal feces (420518559) Positive colorectal cancer screening using Cologuard test (R19.5) Active confirmed Plan Of Treatment Future Test Test Name Order Date COLONOSCOPY 10/07/2013 COLONOSCOPY 01/06/2024 Insurance Providers Payer Name Payer Address Payer Phone Subscriber Number Group Number Insured Name Patient Relationship to Insured Coverage Start Date Coverage End Date [facility] [address] [place] [address] [id number] TANIA DE LA GARZA Self - patient is the insured Medical (General) History Medical History History ICD Code Colonoscopy 02-19-2005--neg except divert iculosis and internal hemorrhoids Hypertension Denies MA,DM,CVA,Lung disease,renal dise ase Glaucoma GERD-upper GI series [...]
--- OUTSIDE RECORDS SUMMARY | 2025-05-22 11:53 | XMS_ITS | Patient Health Record ---
Author Organization [facility] Address [address] [place] [address] Care Team Providers Care Wafer Polishing Worker Name Role Phone AlvarezGabielizabeth Primary Care Provider Hina Ziegler Unavailable [phone] Allergies Allergen (clinical drug ingredient) Drug/Non Drug [...] HCl-Timolol Mal 22.3-6.8 MG/ML (Prior Auth: Rx Ref#:[id number]) Ophthalmic; Duration: 90 Unknown Probiotic Active Baby [...] Status Risk Notes Problem Acquired hallux valgus (35237313) Hallux valgus (acquired), left foot (M20.12) Active confirmed Problem Acquired hallux valgus (84074794) Hallux valgus (acquired), right foot (M20.11) Active confirmed Problem Acquired hammer toe of right foot ([id number] 105) Hammer toe of right foot (M20.41) Active confirmed Problem Acquired hammer toe of left foot ([id number] 103) Hammer toe of left foot (M20.42) Active confirmed Plan Of Treatment Pending Test Test Name Order Date X ray : Foot, left 3V 03/18/2022 X ray : Foot, right 3V 03/18/2022 [id number] NAIL, 6 OR MORE 09/04/2015 [id number] NAIL, 6 OR MORE 12/04/2015 [id number] Destruction, 1-14 09/25/2011 [id number] Destruction, 1-14 09/04/2015 [id number] Destruction, 1-14 05/31/2012 33333, J0702- Neuroma/Injection 01/26/20 12 Insurance Providers Payer Name Payer Address Payer Phone Subscriber Number Group Number Insured Name Patient Relationship to Insured Coverage Start Date Coverage End Date [employer] 65 Medicare Preferred [address] [place] [address] [id number] Lee Ann Love Self - patient is the insured Medical (General) History Medical History History ICD Code mumps measles hypertension glaucoma chicken pox Cataracts Arthritis Back,Hip,and Knee pain Broken bones Glaucoma High blood pressure Reflux ( GERD) Pulmonary embolism Surgical History Surgery Date(Month/Year) cataract surgery 2010,01/11/2015 Dental bone graft 11/22/2014 Hospitalization History Reason Date(Month/Year) Went to [facility] ER for allergic reaction to Lisinopril. 02/2012
== END 2025-05-22 10:46 | disposition home or self-care (01) ==
LOC: HO.HMCH 09:44
PROVIDERS: PCP Internal Medicine; Visit Provider Internal Medicine
DX: I10 Essential (primary) hypertension (principal); I26.99 Other pulmonary embolism without acute cor pulmonale; E66.9 Obesity, unspecified; Z68.31 Body mass index [BMI] 31.0-31.9, adult; I25.2 Old myocardial infarction; E78.00 Pure hypercholesterolemia, unspecified; R73.02 Impaired glucose tolerance (oral); M81.0 Age-related osteoporosis without current pathological fracture; K21.9 Gastro-esophageal reflux disease without esophagitis; K76.0 Fatty (change of) liver, not elsewhere classified; R19.5 Other fecal abnormalities; G47.33 Obstructive sleep apnea (adult) (pediatric)

== ENCOUNTER → 2025-05-22 09:43 | Outpatient (BNVA) | payer MEDICARE, SELFPAY | PROVIDERS: PCP Internal Medicine; Visit Provider Internal Medicine | DX: I10 Essential (primary) hypertension (principal); I21.4 Non-ST elevation (NSTEMI) myocardial infarction; E78.00 Pure hypercholesterolemia, unspecified; I26.99 Other pulmonary embolism without acute cor pulmonale; R73.02 Impaired glucose tolerance (oral); M81.0 Age-related osteoporosis without current pathological fracture; K21.9 Gastro-esophageal reflux disease without esophagitis; K76.0 Fatty (change of) liver, not elsewhere classified; G47.33 Obstructive sleep apnea (adult) (pediatric); R19.5 Other fecal abnormalities; I83.93 Asymptomatic varicose veins of bilateral lower extremities; F41.1 Generalized anxiety disorder; I25.10 Atherosclerotic heart disease of native coronary artery without angina pectoris; R73.01 Impaired fasting glucose; K80.20 Calculus of gallbladder without cholecystitis without obstruction; E66.9 Obesity, unspecified; Z68.31 Body mass index [BMI] 31.0-31.9, adult | CPT/HCPCS: 96127; 99212 ==

== ENCOUNTER 2025-08-10 09:37 | Outpatient (AMB) | payer MEDICARE, SELFPAY ==
--- OUTSIDE RECORDS SUMMARY | 2024-02-17 06:30 | XMS_ITS ---
Author Organization [facility] Address [address] [place] [address] Care Team Providers Care Riverboat Captain Name Role Phone Danika Pino MD Primary Care Provider Raul Mckeon [phone] REASON FOR VISIT positive colon ca screening using cologuard Problems Problem Type SNOMED Code ICD Code Onset Dates Problem Status W/U Status Risk Notes Problem Diverticular disease of colon (824978690) Diverticulosis of large intestine without perforation or abscess without bleeding (K57.30) Active confirmed Encounters Encounter Location Date Provider Diagnosis [facility] Outpatient [address] [place] [phone] 02/17/2024 Raul Napoles Encounter for scre ening colonoscopy Z12.11 ; Heme + stool R19.5 ; Diverticulosis of large intestine without perforation or abscess without bleeding K57.30 and Other hemorrhoids K64.8 Assessments Encounter Date Diagnosis (ICD Code) Assessment Notes Treatment Notes Treatment Clinical Notes Section Notes 02/17/2024 Encounter for screening colonoscopy (ICD-10 - Z12.11) 02/17/2024 Heme + stool (ICD-10 - R19.5) 02/17/2024 Diverticulosis of large intestine without perforation or abscess without bleeding (ICD-10 - K57.30) 02/17/2024 Other hemorrhoids (ICD-10 - K64.8) Plan Of Treatment No Information Progress Notes * TANIA CHASE CDOB:10/1949 (75 yo F)Acc No.[id number]:02/17/2024 COLON WITH MAC Patient: TANIA KIDD Provider: Denise Napoles MD :1950 A ge:73 Y S ex:Female Date:02/17/2024 Address:[address] [place] [address], [facility] Pcp:Danika Pino MD Subjective: * Chief Complaints: * P ositive colon ca screening using cologuard Assessment: * Assessment: 1. E ncounter for screening colonoscopy - Z12.11 (Primary) 2 . H reid + stool - R19.5 3 . D iverticulosis of large intestine without perforation or abscess without bleeding - K57.30 4 . O ther hemorrhoids - K64.8 Plan: * Procedure Codes: 4 5378 DIAGNOSTIC COLONOSCOPY, Modifiers: 33 Billing Information: * Procedure Codes: 90132 DIAGNOSTIC COLONOSCOPY. Modifiers: 33 * The named appointment provid er may or may not be the originator of this progress note, and it is not deemed complete until electronically signed by the appointment provider. Sign off status: Pending * Provider: Denise Napoles MD Date: 0 02/17/2024 Generated for Dinesh zavaleta/Caro/eTransmitting on: 1 10/11/2024 10:59 AM EST
--- OUTSIDE RECORDS SUMMARY | 2024-02-19 09:40 | XMS_ITS ---
Author Organization [facility] Address [address] [place] [phone] Care Team Providers Care Fire Alarm Inspector Name Role Phone Danika Pino MD Primary Care Provider Raul Mckeon [phone] REASON FOR VISIT Patient presents today for FECAL ABNORMALITIES Encounters Encounter Location Date Provider Diagnosis [facility] [address] [phone] 02/19/2024 Raul Napoles Plan Of Treatment No Information Progress Notes * TANIA CHASE CDOB:10/1949 (75 yo F)Acc No.[id number]:02/19/2024 Progress Notes Patient: MANDIE KIDDH Hebert Provider: Denise Napoles MD :1950 A ge:73 Y S ex:Female Date:02/19/2024 Address:[address] [place] [address] [facility] Pcp:Danika Pino MD Subjective: * Chief Complaints: * P atient presents today for FECAL ABNORMALITIES * The named appointment provid er may or may not be the originator of this progress note, and it is not deemed complete until electronically signed by the appointment provider. Sign off status: Pending * Provider: Denise Napoles MD Date: 0 02/19/2024 Generated for Dinesh zavaleta/Caro/eTransmitting on: 1 10/11/2024 10:59 AM EST
--- NOTE | 2025-08-10 09:51 | MHC.OFFVIS ---
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 She has bilateral vv, had a vein burst in May which she went to the emergency room for. Patient states she has periodic ankle swelling. Tingling in the toes. Left leg/ankle is worse. 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 Complaints include pain over varicosities, swelling of lower extremities, cramping, fatigue, and heaviness of the lower extremities. in addition she had an episode of the bleeding varicosity in the left ankle which caused her to go to the emergency room this May. It has been affecting there daily activities including walking. It is noted more so in left leg. 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 Patient denies any previous venous surgery or injections. Patient Does have a history of PE a proximally 10 years ago which occurred after fall gouging her left leg. Unclear if there was a DVT associated with that. Patient denies any history of phlebitis, But does have a history of bleeding varicosity Trial of compression includes - [id number] They now present for vascular evaluation regarding their varicose veins. [facility] Medical History Palpitations Sleep apnea Hiatal hernia Colon cancer screening Osteopenia Pubic bone fracture Hypertension Anxiety Pancreatic lesion Obstructive sleep apnea Peripheral vascular disease GERD (gastroesophageal reflux disease) Obesity (BMI 30-39.9) Glaucoma Osteoarthritis Thyroid nodule Hypercholesterolemia Recurrent pulmonary embolism Surgical History S/P cardiac catheterization H/O colonoscopy History of left knee surgery History of eye surgery History of tonsillectomy History of cataract extraction Family History Father Diabetes CHF (congestive heart failure) Hypertension CVD (cardiovascular disease) Mother Dementia Stroke Hypertension Son In good health Other Mental health disorder Social History Household Members: Spouse Housing: House Do you presently have visiting nurse or other home services: No Alcohol intake: never Patient Tobacco Use Status: Never used Tobacco Tobacco use type: Cigarette e-Cigarette/Vaping Use: Never Used Second Hand Smoke Exposure: No service: No Current occupational status: retired Cognitive needs: No Hearing needs: No Vision needs: Yes Review of Systems Const Reports as per HPI ENT Reports no additional complaints Card Denies chest pain, Denies chest pain at rest and Denies chest pain with activity Resp Denies chest congestion and Denies cough GI Reports no additional complaints Musc Details: pain over varicosities, aching of lower extremities, swelling, cramping, heaviness and tiredness, itching Denies abnormal gait Skin/Breast Reports pruritus and Denies wounds Neuro Reports no additional complaints and Denies abnormal gait Psych Denies no additional complaints Physical Exam Const General: cooperative, healthy appearing and comfortable Orientation/consciousness: oriented to person, oriented to place and oriented to time Neck Carotids: no bruits Chest Chest palpation & inspection: normal inspection of the chest and normal palpation of entire chest wall Resp Effort & Inspection: normal respiratory effort and able to speak in complete sentences Cardio Rate: regular rate Heart sounds: S1 normal heart sound present and S2 normal heart sound present Peripheral pulses: Peripheral pulses 2+ throughout GI Inspection: Yes normal to inspection Skin Other: +2 edema, large rope-like varicosities greater than 4 mm CEAP Classification C4 - skin color changes Ep - Etiology Primary As - superficial veins P - reflux General skin exam: dry skin Neuro General: oriented to person, oriented to place and oriented to time Extrem Right lower extremity: full ROM, normal capillary refill and edema Left lower extremity: full ROM, normal capillary refill and edema Psych Mental Status: mental status grossly normal Assessment & Plan Assessment & Plan (1) Varicose veins of left lower extremity with inflammation: Code(s): I83.12 - Varicose veins of left lower extremity with inflammation Category: Medical Plan: In short, the patient has evidence of venous insufficiency. I have discussed the pathophysiology with the patient. In addition I have provided informational material regarding venous disease to the patient. We have discussed conservative measures including compression, elevation, and exercise. I have also provided a handout regarding appropriate use of compression stockings and where to purchase good compression stockings as well. I have taken the liberty of ordering venous insufficiency testing with the patient. They will follow up with me after testing. The patient had an opportunity to ask questions regarding the treatment plan. All questions were answered. Imaging studies, laboratory studies and physical exam results were discussed and reviewed in detail. No major barriers to understanding were identified. The patient expressed understanding and agreement with the above treatment plan. The patient is aware they should contact our office by phone for worsening of the current condition or the appearance of new symptoms. Thank you for allowing me to participate in the vascular care of this patient. If you have any questions or concerns regarding the treatment for the above condition please do not hesitate to contact me. The office telephone contact is [phone]. This note is constructed using voice recognition software. While every effort has been made to ensure accuracy, partition notcher errors may have been included. Thank you for allowing me to participate in the care of your patient. Yours sincerely, Sin Pickett MD, FACS, R.P.V.I. Orders: Orders US venous duplex LE BI Today I83.12 - Varicose veins of left lower extremity with inflammation Coding Level of Care Code New Pt Level 4 (81069) Diagnoses Varicose veins of left lower extremity with inflammation I83.12
--- OUTSIDE RECORDS SUMMARY | 2025-08-10 10:59 | XMS_ITS | Patient Health Record ---
Author Organization [facility] Address [address] [place] [address] Care Team Providers Care Professor Of Biostatistics Name Role Phone Danika Pino MD Primary Care Provider Raul Mckeon [phone] Allergies Allergen (clinical drug ingredient) Drug/Non Drug Allergy documented on EMR Reaction Allergy Type Onset Date Status lisinopril Lisinopril Unknown Drug Allergy Activ e Reason For Referral No Information Medications Medication SIG (Take, Route, Frequency, Duration) Notes Start Date End Date Status Zioptan 0.0015% Acti ve Dorzolamide HCl-Timolol Mal Active Calcium Active Vitamin D 1999i Act quan Timolol Maleate 0.5 % Solution 1 drop in to affected eye Ophthalmic Once a day Active hydroCHLOROthiazide 25 MG Tablet 1 tablet in the morning Orally Once a day; Duration: 30 day(s) Active Eliquis 5 MG Tablet 1 tablet Orally Twic e a day; Duration: 30 day(s) Active Amlodipine & Diet Manage Pro d 5mg Active Omeprazole 20 MG Capsule Delayed Release 1 capsule 30 minutes before morning meal Orally Once a day; Duration: 30 day(s) Active Immunizations Vaccine Route Administration Date Status Comme nts Influenza Unknown 06/30/2023 Administered Social History Social History Additional Details Category Social Info Options Details Miscellaneous: Marital status: 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 Section Notes: Nonsmoker;no sig alcohol Nonsmoker;no sig alcohol Problems Problem Type SNOMED Code ICD Code Onset Dates Problem Status W/U Status Risk Notes Problem Diverticular disease of colon (675821711) Diverticulosis of large intestine without perforation or abscess without bleeding (K57.30) Active confirmed Problem Abnormal feces (709798623) Positive colorectal cancer screening using Cologuard test (R19.5) Active confirmed Plan Of Treatment Future Test Test Name Order Date COLONOSCOPY 10/07/2013 COLONOSCOPY 01/06/2024 Insurance Providers Payer Name Payer Address Payer Phone Subscriber Number Group Number Insured Name Patient Relationship to Insured Coverage Start Date Coverage End Date [facility] [address] [place] [address] [id number] TANIA DE LA GARZA Self - patient is the insured Medical (General) History Medical History History ICD Code Colonoscopy 02-19-2005--neg except divert iculosis and internal hemorrhoids Hypertension Denies IA,DM,CVA,Lung disease,renal dise ase Glaucoma GERD-upper GI series [...]
--- OUTSIDE RECORDS SUMMARY | 2025-08-10 11:00 | XMS_ITS | Patient Health Record ---
Author Organization [facility] Address [address] [place] [address] Care Team Providers Care Acquisition Advisor Name Role Phone AlvarezGabielizabeth Primary Care Provider Hina Ziegler Unavailable [phone] Allergies Allergen (clinical drug ingredient) Drug/Non Drug [...] HCl-Timolol Mal 22.3-6.8 MG/ML (Prior Auth: Rx Ref#:[id number]) Ophthalmic; Duration: 90 Unknown Probiotic Active Baby [...] Status Risk Notes Problem Acquired hallux valgus (83825464) Hallux valgus (acquired), left foot (M20.12) Active confirmed Problem Acquired hallux valgus (45958418) Hallux valgus (acquired), right foot (M20.11) Active confirmed Problem Acquired hammer toe of right foot (6024595427479 105) Hammer toe of right foot (M20.41) Active confirmed Problem Acquired hammer toe of left foot (7110518711687 103) Hammer toe of left foot (M20.42) Active confirmed Plan Of Treatment Pending Test Test Name Order Date X ray : Foot, left 3V 03/18/2022 X ray : Foot, right 3V 03/18/2022 [id number] NAIL, 6 OR MORE 12/04/2015 [id number] NAIL, 6 OR MORE 09/04/2015 [id number] Destruction, 1-14 09/04/2015 [id number] Destruction, 1-14 09/25/2011 [id number] Destruction, 1-14 05/31/2012 74885, J0702- Neuroma/Injection 01/26/20 12 Insurance Providers Payer Name Payer Address Payer Phone Subscriber Number Group Number Insured Name Patient Relationship to Insured Coverage Start Date Coverage End Date [employer] 65 Medicare Preferred [address] [place] [address] [id number] Lee Ann Love Self - patient is the insured Medical (General) History Medical History History ICD Code mumps measles hypertension glaucoma chicken pox Cataracts Arthritis Back,Hip,and Knee pain Broken bones Glaucoma High blood pressure Reflux ( GERD) Pulmonary embolism Surgical History Surgery Date(Month/Year) cataract surgery 2010,01/11/2015 Dental bone graft 11/22/2014 Hospitalization History Reason Date(Month/Year) Went to [facility] [place] [facility] for allergic reaction to Lisinopril. 02/2012
== END 2025-08-10 10:10 | disposition home or self-care (01) ==
LOC: HO.HVS 09:38
PROVIDERS: PCP Internal Medicine; Visit Provider Surgery Vascular Surgery
DX: I83.12 Varicose veins of left lower extremity with inflammation (principal)
CPT/HCPCS: 99204

== ENCOUNTER → 2025-08-10 09:37 | Outpatient (BNVA) | payer MEDICARE, SELFPAY | PROVIDERS: PCP Internal Medicine; Visit Provider Surgery Vascular Surgery | DX: I83.12 Varicose veins of left lower extremity with inflammation (principal) | CPT/HCPCS: 99202 ==

== ENCOUNTER 2025-08-18 09:27 | Outpatient (AMB) | payer MEDICARE, SELFPAY ==
[2025-08-18 09:33] VITALS: BP 128/80; PULSE 61; TEMP 36.6; O2SAT 98; BMI 31.4
--- NOTE | 2025-08-18 09:33 | MHC.PC.OV ---
Vital Signs 08/18/25 09:33 Height 5 ft 3 in Weight 177 lb BMI 31.4 BP 128/80 Blood Pressure Location Lt brachial Position Sitting Pulse 61 Pulse Source Pulse Oximeter Temp 97.8 F Temp Source Temporal Artery Scan Pulse Oximetry (%) 98 Oxygen Delivery Method Room Air Intake Visit Reasons: annual exam Surgical Asst Required: No Accompanied by: Self / Same As Patient Allergies lisinopril (LISINOPRIL) Allergy (Severe, Verified 08/18/25 09:33) ANGIOEDEMA latex (LATEX) Allergy (Mild, Verified 08/18/25 09:33) RASH Medication List - Last Reconciled 08/18/25 by Samreen Zapata MD acetaminophen 650 mg (2 x 325 mg) PO Q6H PRN amlodipine 5 mg See Protocol PO DAILY apixaban (Eliquis) 5 mg PO BID atorvastatin 80 mg PO DAILY carvedilol 6.25 mg PO BID cholecalciferol (vitamin D3) 25 mcg PO DAILY CPAP (CPAP Machine/Device) As directed hydrochlorothiazide 25 mg PO DAILY tafluprost (PF) 0.0015% (Zioptan (PF)) 1 drp ophthalmic (eye) BEDTIME timolol maleate 0.5% 1 drp ophthalmic (eye) BID Tobacco use date assessed: 08/18/25 Fall risk assessment: No Falls in past year Last assessed Fall Risk: 08/18/25 Dental Screening Dental Screen Date: 08/18/25 Did you have a dental visit in the last 12 months?: Yes Did you have a dental problem in the last 6 months where you did not have access to dental care?: No HPI HPI Comments History of Present Illness Details The patient is a 75 year old female with PMH of HTN, PE, HLD, Osteoporosis, GERD, THERESA, varicose veins presenting for an annual physical examination. Her current medications include acetaminophen PRN for pain, amlodipine 5 mg, Eliquis 5 mg, atorvastatin 80 mg, carvedilol 6.25 mg twice daily, vitamin D, hydrochlorothiazide, timolol and travoprost eye drops. She reports waking up with nasal congestion after removing her CPAP machine in the morning, which makes it difficult to breathe out through her nose. She denies associated symptoms such as itchy eyes and feels the issue may be mechanical rather than allergic. She has tried Flonase with minimal, temporary relief. In the past, she had a positive Cologuard, which was followed by a colonoscopy with Dr. Napoles that required no further testing. She has a history of varicose veins and was evaluated by Dr. Pickett, a vascular surgeon, on August 10. She is awaiting scheduling for an ultrasound. Her last DEXA scan in 2022 showed osteoporosis. [facility] Medical History Palpitations Sleep apnea Hiatal hernia Colon cancer screening Osteopenia Pubic bone fracture Hypertension Anxiety Pancreatic lesion Obstructive sleep apnea Peripheral vascular disease GERD (gastroesophageal reflux disease) Obesity (BMI 30-39.9) Glaucoma Osteoarthritis Thyroid nodule Hypercholesterolemia Recurrent pulmonary embolism Surgical History S/P cardiac catheterization H/O colonoscopy History of left knee surgery History of eye surgery History of tonsillectomy History of cataract extraction Family History Father Diabetes CHF (congestive heart failure) Hypertension CVD (cardiovascular disease) Mother Dementia Stroke Hypertension Son In good health Other Mental health disorder Social History Household Members: Spouse Housing: House Do you presently have visiting nurse or other home services: No Alcohol intake: never Patient Tobacco Use Status: Never used Tobacco Tobacco use type: Cigarette e-Cigarette/Vaping Use: Never Used Second Hand Smoke Exposure: No service: No Current occupational status: retired Cognitive needs: No Hearing needs: No Vision needs: Yes Questionnaire PHQ-9 Over the last 2 weeks, how often have you been bothered by any of the following problems? 1. Little interest or pleasure in doing things: not at all 2. Feeling down, depressed, or hopeless: not at all 3. Trouble falling or staying asleep, or sleeping too much: not at all 4. Feeling tired or having little energy: not at all 5. Poor appetite or overeating: not at all 6. Feeling bad about yourself - or that you are a failure or have let yourself or your family down: not at all 7. Trouble concentrating on things, such as reading the newspaper or watching television: not at all 8. Moving or speaking so slowly that other people could have noticed. Or the opposite - being so fidgety or restless that you have been moving around a lot more than usual: not at all 9. Thoughts that you would be better off or of hurting yourself in some way: not at all Total score: 0 Depression Screening Interpretation: Negative Depression Screening Done: Yes Source: Developed by Drs. Raul Estes, Va Stone, Sunny Mosqueda and colleagues, with an educational diana from [email or web address]. Thrive Questionnaire Date Thrive assessed: 08/18/25 I am a: Patient What is your living situation today?: I have a steady place to live Within the past 12 months, did the food you bought not last and you didn't have the money to get more?: Never true Within the past 12 months, did you worry whether your food would run out before you got money to buy more?: Never true Do you have trouble paying for medicines?: No Do you have trouble getting transportation to medical appointments?: No Do you have trouble paying your heating and electricity bill?: No Do you have trouble taking care of your child, family member or friend?: No Do you have trouble with day-to-day activities such as bathing, preparing meals, shopping, managing finances, etc.?: No Are you currently unemployed and looking for a job?: No Are you interested in more education?: No Please select the resources that you would like help with: None Currently or been in a relationship where the following occur: No concerns reported THRIVE Score: 0 AUDIT C Alcohol Use Questionnaire (AUDIT-C) 1. How often do you have a drink containing alcohol?: Never 3. How often do you have six or more drinks on one occasion?: Never Total Score: 0 ARNIE-7 AMB Questionnaire ARNIE-7 Date ARNIE - 7 assessed: 08/18/25 Feeling nervous, anxious, or on edge: 0 = Not at all Not being able to stop or control worryin = Not at all Worrying too much about different things: 0 = Not at all Trouble relaxin = Not at all Being so restless that it is hard to sit still: 0 = Not at all Becoming easily annoyed or irritable: 0 = Not at all Feeling afraid as if something awful might happen: 0 = Not at all Total ARNIE-7 score (0-4 normal; 5-9 mild; 10-14 moderate; 15-21 severe): 0 Source: Developed by Drs. Raul Estes, Va Stone, Sunny Mosqueda and colleagues, with an educational diana from [email or web address]. Review of Systems Const Details: Positives besides what was mentioned in HPI are in BOLD Constitutional: No Weight Change, No Fever, No Chills, No Night Sweats, No Fatigue, No Malaise ENT/Mouth: No Hearing Changes, No Ear Pain, No Nasal Congestion, No Sinus Pain, No Hoarseness, No sore throat, No Rhinorrhea, No Swallowing Difficulty Eyes: No Eye Pain, No Swelling, No Redness, No Foreign Body, No Discharge, No Vision Changes Cardiovascular: No Chest Pain, No SOB, No PND, No Dyspnea on Exertion, No Orthopnea, No Claudication, No Edema, No Palpitations Respiratory: No Cough, No Sputum, No Wheezing, No Smoke Exposure, No Dyspnea Gastrointestinal: No Nausea, No Vomiting, No Diarrhea, No Constipation, No Pain, No Heartburn, No Anorexia, No Dysphagia, No Hematochezia, No Melena, No Flatulence, No Jaundice Genitourinary: No Dysmenorrhea, No DUB, No Dyspareunia, No Dysuria, No Urinary Frequency, No Hematuria, No Urinary Incontinence, No Urgency, No Flank Pain, No Urinary Flow Changes, No Hesitancy Musculoskeletal: No Arthralgias, No Myalgias, No Joint Swelling, No Joint Stiffness, No Back Pain, No Neck Pain, No Injury History Skin: No Skin Lesions, No Pruritis, No Hair Changes, No Breast/Skin Changes, No Nipple Discharge Neuro: No Weakness, No Numbness, No Paresthesias, No Loss of Consciousness, No Syncope, No Dizziness, No Headache, No Coordination Changes, No Recent Falls Psych: No Anxiety/Panic, No Depression, No Insomnia, No Personality Changes, No Delusions, No Rumination, No SI/HI/AH/VH, No Social Issues, No Memory Changes, No Violence/Abuse Hx., No Eating Concerns Heme/Lymph: No Bruising, No Bleeding, No Transfusions History, No Lymphadenopathy Endocrine: No Polyuria, No Polydipsia, No Temperature Intolerance Physical exam (Primary Care) Vital Signs: Last Vital Signs Temp 97.8 F 08/18/25 09:33 Pulse 61 08/18/25 09:33 BP 128/80 08/18/25 09:33 Pulse Ox 98 08/18/25 09:33 Oxygen Delivery Method Room Air 08/18/25 09:33 BMI result Body Mass Index 31.4 Tobacco/Smoking Status: Tobacco use Status Tobacco use date assessed 08/18/25 08/18/25 09:42 Patient Tobacco Use Status Never used Tobacco 08/18/25 09:33 Tobacco use type Cigarette 08/18/25 09:33 e-Cigarette/Vaping Use Never Used 08/18/25 09:33 PHQ-9: PHQ-9 Score PHQ-9: Total score 0 08/18/25 10:01 Depression Screening Interpretation: Negative Thrive Assessment: Date of Thrive Assessment Date Thrive assessed 08/18/25 08/18/25 09:42 Currently or been in a relationship where the following occur: No concerns reported Const Other: Pertinent findings are in BOLD GENERAL APPEARANCE NAD, activity normal for age, well developed/ well nourished, no cyanosis, pallor, or diaphoresis. EYES lids/conjunctiva normal. EARS/NOSE/THROAT Mucous membranes moist, nares normal, lips/teeth normal uvula midline without oral pharyngeal erythema, exudate or swelling TMs normal bilaterally. No lymphangitis/lymphedema. HEAD/NECK normocephalic atraumatic, no facial trauma, neck is supple. RESPIRATORY respiratory effort normal, speaks in full sentences, no tripod position, no accessory muscle use. Lungs clear to auscultation without rhonchi, wheezes, rales CARDIAC Regular rate and rhythm, no edema. ABDOMINAL Soft, ND/NT. No evidence of fluid wave. No pulsatile masses on exam, rebound tenderness, Nance sign or pain over Mcburney's point. MUSCLES/EXTREMITIES No abnormal range of motion, no swelling. SKIN Warm, pink and dry. No rashes, dermatoses, petechiae or lesions. NEUROLOGICAL Speech is clear and appropriate. Normal level of consciousness. Gait and coordination are normal. 5/5 strength in all extremities. PSYCH Normal mood and affect. Judgement/competence is appropriate Coding Level of Care Code Est Pt Prev Care >65y(08388) Diagnoses Congestion of respiratory tract J98.8 Healthcare maintenance Z00.00 Osteoporosis M81.0 Varicose veins of both lower extremities I83.93 Primary hypertension I10 Hypertension type: primary hypertension NSTEMI (non-ST elevated myocardial infarction) I21.4 Recurrent pulmonary embolism I26.99 Obstructive sleep apnea G47.33 Time Spent (min) 30 Assessment & Plan Assessment & Plan (1) Congestion of respiratory tract: Code(s): J98.8 - Other specified respiratory disorders Category: Medical Plan: - The patient reports waking with nasal congestion after using her CPAP, finding it difficult to exhale through her nose. - Refer to an ENT specialist for further evaluation of a possible mechanical obstruction, as per the patient's preference. - Prescribed Claritin to be taken at night as an interim measure while awaiting the ENT appointment. - Advised the patient that the prescription can be filled or an [id number] version can be purchased, whichever is more cost-effective. (2) Healthcare maintenance: Code(s): Z00.00 - Encounter for general adult medical examination without abnormal findings Category: Medical Plan: CBC, CMP, Lipid panel, A1C, TSH w T4, vit D. Ordered by Dr. Sawyer. Advised the patient to get them. Shingles 2 doses when >50 yo. Completed. COVID: two doses. Completed. Tdap: Completed in 2021, next due in 2031. Pneumococcal: >50 yo. 18-49 with CKD, lung disease, weakened immune system, Heart disease, DM, cochlear implant. Completed Flu vaccine: Completed at [facility]. Colonoscopy: 45-75. LAst done in 2023. No more screening required as per Dr. Napoles. AAA: 65 -75. NI[address] CT lun - 80. NI. HPV: Aged out. HIV: Ordered. HCV: Ordered. Dexa: Done in 2022 showing Osteoporosis. Repeat ordered. Mammogram: Aged out. (3) Osteoporosis: Comment: July 2023 Code(s): M81.0 - Age-related osteoporosis without current pathological fracture Category: Medical Plan: - The patient has a known history of osteoporosis, confirmed by a DEXA scan in 2022. - Order a repeat DEXA scan to assess for progression, as it is recommended every three years. - Continue vitamin D supplementation. (4) Varicose veins of both lower extremities: Code(s): I83.93 - Asymptomatic varicose veins of bilateral lower extremities Category: Medical Plan: - The patient has been evaluated by vascular surgeon Dr. Pickett. - She is awaiting scheduling for an ultrasound as recommended by the specialist. - Continue wearing compression stockings as recommended by Dr. Pickett, which the patient reports as effective. (5) Hypertension: Code(s): I10 - Essential (primary) hypertension Category: Medical Qualifiers: Hypertension type: primary hypertension Qualified Code(s): I10 - Essential (primary) hypertension Plan: Continue Amlodipine, HCTZ, Coreg, (6) NSTEMI (non-ST elevated myocardial infarction): Comment: Cardiac catheterization 03/26/2024 normal coronaries Code(s): I21.4 - Non-ST elevation (NSTEMI) myocardial infarction Category: Medical Plan: Continue Atorvastatin. (7) Recurrent pulmonary embolism: Comment: 04/24/2015, 6 months September 2015 Code(s): I26.99 - Other pulmonary embolism without acute cor pulmonale Category: Medical Plan: Continue Eliquiss. (8) Obstructive sleep apnea: Comment: CPAP Code(s): G47.33 - Obstructive sleep apnea (adult) (pediatric) Category: Medical Plan: Continue CPAP. Plan I reviewed the patient's medications and confirmed she is taking them as prescribed. We discussed her nasal congestion that occurs after using the CPAP machine. I have placed a referral to an ENT specialist for further evaluation and prescribed Claritin for her to try at night in the meantime. I informed her to take it before sleep as it may cause some drowsiness. Dr. SAWYER ordered routine labs. I advised the patient to get them drawn and I added a one-time screening for HIV and Hepatitis C, which I explained are standard preventative health measures. I also ordered a repeat DEXA scan to monitor her osteoporosis. A refill for her amlodipine was also sent to her preferred pharmacy. We confirmed her immunizations are up to date and that she has a follow-up mammogram scheduled. I recommended she follow up in five months for a routine check. Orders: Orders Hepatitis C Antibody Reflex Today Z00.00 - Encounter for general adult medical examination without abnormal findings XR DEXA axial skeleton Today M81.0 - Age-related osteoporosis without current pathological fracture HIV Ab/Ag Today Z00.00 - Encounter for general adult medical examination without abnormal findings Referrals Ear/Nose/Throat Referral J98.8 - Other specified respiratory disorders Medications: New loratadine (Claritin) 10 mg PO DAILY PRN 30 tabs 3RF allergy symptoms Refilled amlodipine 5 mg See Protocol PO DAILY 90 tabs 1RF I10 - Essential (primary) hypertension
== END 2025-08-18 10:15 | disposition home or self-care (01) ==
LOC: HO.HMCH 09:28
PROVIDERS: PCP Internal Medicine; Visit Provider Internal Medicine
DX: Z00.00 Encounter for general adult medical examination without abnormal findings (principal); J98.8 Other specified respiratory disorders; I26.99 Other pulmonary embolism without acute cor pulmonale; I25.2 Old myocardial infarction; M81.0 Age-related osteoporosis without current pathological fracture; I83.93 Asymptomatic varicose veins of bilateral lower extremities; I10 Essential (primary) hypertension; G47.33 Obstructive sleep apnea (adult) (pediatric)

== ENCOUNTER → 2025-08-18 09:27 | Outpatient (BNVA) | payer MEDICARE, SELFPAY | PROVIDERS: PCP Internal Medicine; Visit Provider Internal Medicine | DX: Z00.00 Encounter for general adult medical examination without abnormal findings (principal); J98.8 Other specified respiratory disorders; M81.0 Age-related osteoporosis without current pathological fracture; I83.93 Asymptomatic varicose veins of bilateral lower extremities; I10 Essential (primary) hypertension; I21.4 Non-ST elevation (NSTEMI) myocardial infarction; I26.99 Other pulmonary embolism without acute cor pulmonale; G47.33 Obstructive sleep apnea (adult) (pediatric) | CPT/HCPCS: 96127; 99397 ==